=== PATIENT | male | born 1975 | race Caucasian/White ===

== ENCOUNTER 2017-03-04 14:28 | Inpatient (IN) | payer SELFPAY ==
[~2017-03-04] VITALS: Ht 170.2 cm; Wt 76.4 kg
[2017-03-04 14:34] VITALS: BP 107/57; PULSE 90; RESP 14; TEMP 98.4; O2SAT 97
[2017-03-04 16:21] VITALS: BP 102/54; PULSE 97; RESP 22; TEMP 97.8; O2SAT 98
[2017-03-04] MEDS ORDERED: SODIUM CHLOR 0.9% 1000 ML INJ 1,000 ML IV ONE (16:23)
[2017-03-04] MEDS ORDERED: oxyCODONE/ACETAMINOPHEN 5 MG/325 MG TAB PO ONE (16:30)
[2017-03-04] MEDS ORDERED: ONDANSETRON HCL 4 MG/2 ML VIAL IV PUSH ONE (16:30)
--- NOTE | 2017-03-04 16:51 | PD ---
HPI Chief Complaint: Skin Problem Time Seen by Provider: 16:16 Travel History International Travel<30 days: No Contact w/Intl Traveler<30days: No Traveled to known affect area: No History of Present Illness HPI Patient is a 42-year-old male presenting to the ER chart for evaluation of right arm pain and swelling. Patient states he injected IV heroin into his right forearm 3 days ago, 2 days ago the symptoms started. He states his pain is a 10 out of 10, he has been trying to let it heal on its own however the pain was so significant he presented today. He states he he's felt feverish and chilled but has not actually taken his temperature. He reports generalized body aches. He denies any nausea, vomiting, chest pain, shortness of breath, abdominal pain. Patient states she's been using IV Dilaudid as well, he has a five-year history of IV drug use. [facility] Past Medical History Medical History: Denies Significant Hx Diminished Hearing: No ?: Not Social History Alcohol Use: Yes Tobacco Use: Yes Substance Use: Yes (IV heroin and Dilaudid) Allergies-Medications (Allergen,Severity, Reaction): Coded Allergies: No Known Allergies (Unverified , 03/04/17) Reported Meds & Prescriptions Reported Meds & Active Scripts Active No Active Prescriptions or Reported Medications Review of Systems Except as stated in HPI: all other systems reviewed are Neg General / Constitutional: Positive: Fever, Chills HENT: No: Headaches Cardiovascular: No: Chest Pain or Discomfort Respiratory: No: Shortness of Breath Gastrointestinal: No: Nausea, Abdominal Pain Musculoskeletal: Positive: Myalgias, Edema Skin: Positive Change in Pigmentation Neurologic: No: Sensory Disturbance Physical Exam Narrative GENERAL: Well-developed, well-nourished, alert male. Appears uncomfortable, in no acute distress. SKIN: Warm and dry. Edema and erythema to right hand and forearm just proximal to right elbow, significantly tender to palpation. HEAD: Atraumatic. Normocephalic. EYES: Pupils equal and round. No scleral icterus. No injection or drainage. ENT: No nasal bleeding or discharge. Mucous membranes pink and moist. NECK: Trachea midline. No JVD. CARDIOVASCULAR: Regular rate and rhythm. RESPIRATORY: No accessory muscle use. Clear to auscultation. Breath sounds equal bilaterally. GASTROINTESTINAL: Abdomen soft, non-tender, nondistended. Hepatic and splenic margins not palpable. MUSCULOSKELETAL: Extremities without clubbing, cyanosis. 1+ edema to right forearm and hand, nonpitting. 2+ radial pulse, brisk is a 3 second capillary refill. NEUROLOGICAL: Awake and alert. No obvious cranial nerve deficits. Motor grossly within normal limits. Five out of 5 muscle strength in the arms and legs. Normal speech. PSYCHIATRIC: Appropriate mood and affect; insight and judgment normal. Data Data Last Documented VS Vital Signs Date Time Temp Pulse Resp B/P (MAP) Pulse Ox O2 Delivery O2 Flow Rate FiO2 03/04/17 16:21 97.8 97 22 102/54 (70) 98 Room Air Orders Orders Complete Blood Count With Diff (03/04/17 16:23) Comprehensive Metabolic Panel (03/04/17 16:23) Lactic Acid Sepsis Protocol (03/04/17 16:23) Blood Culture (03/04/17 16:23) Ecg Monitoring (03/04/17 16:23) Iv Access Insert/Monitor (03/04/17 16:23) Oximetry (03/04/17 16:23) Ondansetron Inj (Zofran Inj) (03/04/17 16:30) Sodium Chlor 0.9% 1000 Ml Inj (Ns 1000 M (03/04/17 16:23) Us Arm Venous Doppler (03/04/17 ) Oxycodone-Acetamin 5-325 Mg (Percocet (03/04/17 16:30) Clindamycin 900 Mg Premix (Cleocin 900 M (03/04/17 17:30) Clindamycin Inj (Cleocin Inj) (03/04/17 17:30) Ketorolac Inj (Toradol Inj) (03/04/17 18:15) Admit Order (Ed Use Only) (03/04/17 18:28) Labs Laboratory Tests Test 03/04/17 16:30 White Blood Count 19.8 TH/MM3 Red Blood Count 3.19 MIL/MM3 Hemoglobin 9.7 GM/DL Hematocrit 27.4 % Mean Corpuscular Volume 86.0 FL Mean Corpuscular Hemoglobin 30.5 PG Mean Corpuscular Hemoglobin Concent 35.4 % Red Cell Distribution Width 13.5 % Platelet Count 193 TH/MM3 Mean Platelet Volume 8.7 FL Neutrophils (%) (Auto) 92.4 % Lymphocytes (%) (Auto) 2.8 % Monocytes (%) (Auto) 4.2 % Eosinophils (%) (Auto) 0.4 % Basophils (%) (Auto) 0.2 % Neutrophils # (Auto) 18.3 TH/MM3 Lymphocytes # (Auto) 0.5 TH/MM3 Monocytes # (Auto) 0.8 TH/MM3 Eosinophils # (Auto) 0.1 TH/MM3 Basophils # (Auto) 0.0 TH/MM3 CBC Comment DIFF FINAL Differential Comment Blood Urea Nitrogen 26 MG/DL Creatinine 1.36 MG/DL Random Glucose 82 MG/DL Total Protein 6.9 GM/DL Albumin 3.0 GM/DL Calcium Level 8.0 MG/DL Alkaline Phosphatase 68 U/L Aspartate Amino Transf (AST/SGOT) 419 U/L Alanine Aminotransferase (ALT/SGPT) 234 U/L Total Bilirubin 0.5 MG/DL Sodium Level 127 MEQ/L Potassium Level 3.8 MEQ/L Chloride Level 95 MEQ/L Carbon Dioxide Level 21.4 MEQ/L Anion Gap 11 MEQ/L Estimat Glomerular Filtration Rate 58 ML/MIN Lactic Acid Level 1.9 mmol/L [facility] Medical Decision Making Medical Screen Exam Complete: Yes Emergency Medical Condition: Yes Interpretation(s) Vital Signs Date Time Temp Pulse Resp B/P (MAP) Pulse Ox O2 Delivery O2 Flow Rate FiO2 03/04/17 14:34 98.4 90 14 107/57 (74) 97 Differential Diagnosis Cellulitis versus abscess versus DVT versus sepsis versus other Narrative Course Patient is a 42-year-old IV drug user presented with 2-3 days of increasing pain , swelling, redness to his right upper extremity. He admits to injecting heroin and Dilaudid 3 days ago. Patient is mildly tachycardic, he is afebrile currently, mildly hypotensive. Labs and imaging ordered and pending. Percocet ordered for pain. Ultrasound of the right upper extremity is negative for DVT. CBC with white count of 19.8 with left shift Lactic acid 1.9 Chemistry with elevated BUN and creatinine at 26/1.36, liver enzymes are elevated with an AST of 419, ALT 234, sodium 127 Clindamycin 900 mg IV 1 dose ordered. Patient given a liter of IV fluids as well as Zofran. Discussed findings by attending physician. At this time patient will be admitted for IV antibiotic therapy. Discussed with Dr. Cervantes who accepted admission. Admit orders placed. Sepsis Criteria SIRS Criteria (2 or more): Heart rate over 90, WBC > 78507, < 4000 or > 10% bands Sepsis Criteria (SIRS+source): Infect source susp/known (cellulitis) Severe Sepsis (+one): Hypotension Diagnosis Primary Impression: Sepsis Qualified Codes: A41.9 - Sepsis, unspecified organism Additional Impressions: Cellulitis Qualified Codes: L03.113 - Cellulitis of right upper limb IV drug user Admitting Information Admitting Physician Requests: Admit Scripts No Active Prescriptions or Reported Meds Condition: Stable [facility] Mar 04, 2017 16:51
[2017-03-04 17:10] LABS: AUTOMATED NEUTROPHIL # 18.3 TH/MM3 (1.8-7.7); BASOPHIL % 0.2 % (0.0-2.0); EOSINOPHIL # 0.1 TH/MM3 (0-0.4); EOSINOPHIL % 0.4 % (0.0-4.0); HEMATOCRIT 27.4 % (39.0-51.0); HEMO FLAGS DIFF FINAL; LYMPH % 2.8 % (9.0-44.0); LYMPHOCYTE # 0.5 TH/MM3 (1.0-4.8); MEAN CORPUSCULAR HEMOGLOBIN 30.5 PG (27.0-34.0); MEAN CORPUSCULAR HGB CONC 35.4 % (32.0-36.0); MONO % 4.2 % (0.0-8.0); NEUT % 92.4 % (16.0-70.0); PLATELET COUNT 193 TH/MM3 (150-450); RED BLOOD COUNT 3.19 MIL/MM3 (4.50-5.90); RED CELL DISTRIBUTION WIDTH 13.5 % (11.6-17.2); WHITE BLOOD COUNT 19.8 TH/MM3 (4.0-11.0)
--- NOTE | 2017-03-04 17:10 | RADRPT ---
EXAM DATE/TIME: 03/04/2017 16:45 [facility] COMPARISON: No previous studies available for comparison. INDICATIONS : Right arm swelling. MEDICAL HISTORY : ETOH abuse. Substance abuse. SURGICAL HISTORY : None. ENCOUNTER: Initial ACUITY: 3 days PAIN SCORE: 7/10 LOCATION: Right arm. FINDINGS: There is spontaneous flow documented in the brachial, basilic, cephalic, axillary, and subclavian vei ns. The vessels are compressible and augmentation response is documented. No filling defects are se en. The flow is phasic with respiration. Direction of flow in the jugular vein is caudal. CONCLUSION: No venous thrombosis of the right upper extremity. Jonatan Wheeler MD on March 04, 2017 at 17:07 Board Certified Radiologist. This report was verified electronically.
[2017-03-04] MEDS ORDERED: CLINDAMYCIN 900 MG PREMIX 50 ML IV ONE (17:30)
[2017-03-04] MEDS ORDERED: CLINDAMYCIN INJ 900 MG in SODIUM CHLORIDE 0.9% INJ 100 ML IV ONE (17:30)
[2017-03-04 17:34] LABS: ALKALINE PHOSPHATASE 68 U/L (45-117); TOTAL BILIRUBIN ADULT 0.5 MG/DL (0.2-1.0)
[2017-03-04 17:35] LABS: ALT (GPT) 234 U/L (12-78); ANION GAP 11 MEQ/L (5-15); AST (GOT) 419 U/L (15-37); BICARBONATE 21.4 MEQ/L (21.0-32.0); BLOOD UREA NITROGEN 26 MG/DL (7-18); CHLORIDE 95 MEQ/L (98-107); GLOMERULAR FILTRATION RATE 58 ML/MIN (>89); SODIUM (NA) 127 MEQ/L (136-145)
[2017-03-04 17:39] LABS: POTASSIUM 3.8 MEQ/L (3.5-5.1)
[2017-03-04] MEDS ORDERED: KETOROLAC TROMETHAMINE 30 MG/ML (IVP) VIAL IV PUSH ONE (18:15)
[2017-03-04 19:14] VITALS: BP 90/53; PULSE 102; RESP 18; O2SAT 98
[2017-03-04 20:00] VITALS: BP 81/53; PULSE 99; RESP 18; TEMP 97.6; O2SAT 98
[2017-03-04] MEDS: SODIUM CHLOR 0.9% 1000 ML INJ 1,000 ML IV SCH (20:20)
[2017-03-04] MEDS ORDERED: LORazepam 1 MG TAB PO PRN (20:30)
[2017-03-04] MEDS ORDERED: Vancomycin Consult Pharmacy 1 EA OTHER SCH (20:30)
[2017-03-04] MEDS ORDERED: MAGNESIUM HYDROXIDE SUSP 30 ML CUP PO PRN (20:30)
[2017-03-04] MEDS ORDERED: SODIUM CHLORIDE 0.9% FLUSH 10 ML FLUSH IV FLUSH PRN (20:30)
[2017-03-04] MEDS ORDERED: VANCOMYCIN INJ 1,000 MG in SODIUM CHLOR 0.9% 250 ML INJ 250 ML IV SCH (20:30)
[2017-03-04] MEDS ORDERED: LORazepam 2 MG TAB PO PRN (20:30)
[2017-03-04] MEDS ORDERED: ACETAMINOPHEN 325 MG TAB PO PRN (20:30)
[2017-03-04] MEDS ORDERED: NALOXONE HCL 0.4 MG/ML AMP IV PUSH PRN (20:30)
[2017-03-04] MEDS ORDERED: SENNOSIDES 8.6 MG TAB PO PRN (20:30)
[2017-03-04] MEDS ORDERED: LORazepam 2 MG/ML VIAL IV PUSH PRN ×4 (20:30)
[2017-03-04] MEDS ORDERED: FLUMAZENIL 0.5 MG/5 ML VIAL IV PUSH PRN (20:30)
[2017-03-04] MEDS ORDERED: LACTULOSE SYRUP 20 GM/30 ML CUP PO PRN (20:30)
[2017-03-04] MEDS ORDERED: ONDANSETRON HCL 4 MG/2 ML VIAL IVP PRN (20:30)
[2017-03-04] MEDS ORDERED: BISACODYL 10 MG SUPP RECTAL PRN (20:30)
--- NOTE | 2017-03-04 20:31 | HHI.HP ---
[facility] Service [facility] Primary Care Physician No Primary Care Physician Admission Diagnosis cellulitis, IV drug use Diagnoses: Travel History International Travel<30 Days: No Contact w/Intl Traveler <30 Da: No Traveled to Known Affected Are: No History of Present Illness 42-year-old male with a past medical history significant for IV drug abuse presents to the emergency department with a three-day history of right upper extremity pain and swelling. He endorses subjective fever/chills. He also complains of nausea and diarrhea for 3 days. His lab work was significant for a white cell count of 19.8 with a significant left shift. He endorses pain that radiates to his hand and has difficulty making a fist. No areas of fluctuance noted. Review of Systems Subjective fever/chills Denies blurry vision, otorrhea, rhinorrhea Denies sore throat and cough No chest pain, palpitations, shortness of breath No abdominal pain Nausea and diarrhea Denies muscle pain/weakness Erythema right upper extremity Past Family Social History Past Medical History None Past Surgical History Unspecified vascular surgery on the left lower extremity 6 years ago Reported Medications None Allergies: Coded Allergies: No Known Allergies (Unverified , 03/04/17) Family History None. Mother and father without significant medical comorbidities. Social History Endorses drinking a 4 pack of beer daily. Denies marijuana. IV drug abuse with Dilaudid and heroin and, last injection 3 days ago Physical Exam Vital Signs Vital Signs Date Time Temp Pulse Resp B/P (MAP) Pulse Ox O2 Delivery O2 Flow Rate FiO2 03/04/17 19:14 102 18 90/53 (65) 98 Room Air 03/04/17 18:36 18 03/04/17 16:21 97.8 97 22 102/54 (70) 98 Room Air 03/04/17 14:34 98.4 90 14 107/57 (74) 97 Physical Exam GENERAL: White male lying in bed SKIN: Significant induration and erythema in the right upper extremity that extends from the elbow to the mid forearm. No fluctuance noted. HEAD: Atraumatic. Normocephalic. No temporal or scalp tenderness. EYES: Pupils equal round and reactive. Extraocular motions intact. No scleral icterus. No injection or drainage. ENT: Nose without bleeding, purulent drainage or septal hematoma. Throat without erythema, tonsillar hypertrophy or exudate. Uvula midline. Airway patent. NECK: Trachea midline. No JVD or lymphadenopathy. Supple, nontender, no meningeal signs. CARDIOVASCULAR: Regular rate and rhythm without murmurs, gallops, or rubs. RESPIRATORY: Clear to auscultation. Breath sounds equal bilaterally. No wheezes , rales, or rhonchi. GASTROINTESTINAL: Abdomen soft, non-tender, nondistended. No hepato-splenomegaly , or palpable masses. No guarding. MUSCULOSKELETAL: Extremities without clubbing, cyanosis, or edema. No joint tenderness, effusion, or edema noted. No calf tenderness. NEUROLOGICAL: Awake and alert. Cranial nerves II through XII intact. Motor and sensory grossly within normal limits. Normal speech. Laboratory Laboratory Tests Test 03/04/17 16:30 White Blood Count 19.8 Red Blood Count 3.19 Hemoglobin 9.7 Hematocrit 27.4 Mean Corpuscular Volume 86.0 Mean Corpuscular Hemoglobin 30.5 Mean Corpuscular Hemoglobin Concent 35.4 Red Cell Distribution Width 13.5 Platelet Count 193 Mean Platelet Volume 8.7 Neutrophils (%) (Auto) 92.4 Lymphocytes (%) (Auto) 2.8 Monocytes (%) (Auto) 4.2 Eosinophils (%) (Auto) 0.4 Basophils (%) (Auto) 0.2 Neutrophils # (Auto) 18.3 Lymphocytes # (Auto) 0.5 Monocytes # (Auto) 0.8 Eosinophils # (Auto) 0.1 Basophils # (Auto) 0.0 CBC Comment DIFF FINAL Differential Comment Blood Urea Nitrogen 26 Creatinine 1.36 Random Glucose 82 Total Protein 6.9 Albumin 3.0 Calcium Level 8.0 Alkaline Phosphatase 68 Aspartate Amino Transf (AST/SGOT) 419 Alanine Aminotransferase (ALT/SGPT) 234 Total Bilirubin 0.5 Sodium Level 127 Potassium Level 3.8 Chloride Level 95 Carbon Dioxide Level 21.4 Anion Gap 11 Estimat Glomerular Filtration Rate 58 Lactic Acid Level 1.9 Date/Time Source Procedure Growth Status 03/04/17 16:30 Blood Peripheral Aerobic Blood Culture Pending Received 03/04/17 16:30 Blood Peripheral Anaerobic Blood Culture Pending Received Result Diagram: 03/04/17 1630 03/04/17 1630 Caprini VTE Risk Assessment Caprini VTE Risk Assessment: No/Low Risk (score <= 1) Caprini Risk Assessment Model Point Value = 1 Point Value = 2 Point Value = 3 Point Value = 5 Age 41-60 Minor surgery BMI > 25 kg/m2 Swollen legs Varicose veins or History of unexplained or recurrent spontaneous Oral contraceptives or hormone replacement Sepsis (< 1 month) Serious lung disease, including pneumonia (< 1 month) Abnormal pulmonary function Acute myocardial infarction Congestive heart failure (< 1 month) History of inflammatory bowel disease Medical patient at bed rest Age 61-74 Arthroscopic surgery Major open surgery (> 45 min) Laparoscopic surgery (> 45 min) Malignancy Confined to bed (> 72 hours) Immobilizing plaster cast Central venous access Age >= 75 History of VTE Family history of VTE Factor V Leiden Prothrombin [id number] Lupus anticoagulant Anticardiolipin antibodies Elevated serum homocysteine Heparin-induced thrombocytopenia Other congenital or acquired thrombophilia Stroke (< 1 month) Elective arthroplasty Hip, pelvis, or leg fracture Acute spinal cord injury (< 1 month) Prophylaxis Regimen Total Risk Factor Score Risk Level Prophylaxis Regimen 0-1 Low Early ambulation 2 Moderate Order ONE of the following: *Sequential Compression Device (SCD) *Heparin 5000 units SQ BID 3-4 Higher Order ONE of the following medications: *Heparin 5000 units SQ TID *Enoxaparin/Lovenox 40 mg SQ daily (WT < 150 kg, CrCl > 30 mL/min) *Enoxaparin/Lovenox 30 mg SQ daily (WT < 150 kg, CrCl > 10-29 mL/min) *Enoxaparin/Lovenox 30 mg SQ BID (WT < 150 kg, CrCl > 30 mL/min) AND/OR *Sequential Compression Device (SCD) 5 or more Highest Order ONE of the following medications: *Heparin 5000 units SQ TID (Preferred with Epidurals) *Enoxaparin/Lovenox 40 mg SQ daily (WT < 150 kg, CrCl > 30 mL/min) *Enoxaparin/Lovenox 30 mg SQ daily (WT < 150 kg, CrCl > 10-29 mL/min) *Enoxaparin/Lovenox 30 mg SQ BID (WT < 150 kg, CrCl > 30 mL/min) AND *Sequential Compression Device (SCD) Assessment and Plan Assessment and Plan 42-year-old male with IV drug abuse presents with a three-day history of right upper extremity cellulitis 1. Right upper extremity cellulitis Vancomycin and Zosyn Blood cultures pending Monitor for signs of sepsis 2. AK I Creatinine 1.36 IV fluid hydration 3. Transaminitis Suspect secondary to alcohol abuse Monitor FEN Regular diet Electrolytes monitor and replete when necessary IV fluids: NS at 100 cc/hour SCDs Physician Certification 2 Midnight Certification Type: Admission for Inpatient Services Order for Inpatient Services The services are ordered in accordance with Medicare regulations or non- Medicare payer requirements, as applicable. In the case of services not specified as inpatient-only, they are appropriately provided as inpatient services in accordance with the 2-midnight benchmark. Estimated LOS (days): 2 2 days is the estimated time the patient will need to remain in the hospital, assuming treatment plan goals are met and no additional complications. Post-Hospital Plan: Not yet determined Cristina Hansen MD Mar 04, 2017 20:31
[2017-03-04] MEDS: DOCUSATE SODIUM 50 MG/SENNA 8.6 MG TAB PO SCH (21:00)
[2017-03-04] MEDS: SODIUM CHLORIDE 0.9% FLUSH 10 ML FLUSH IV FLUSH SCH (21:00)
[2017-03-04] MEDS: oxyCODONE/ACETAMINOPHEN 7.5 MG/325 MG TAB PO PRN (21:06)
[2017-03-04] MEDS: VANCOMYCIN INJ 1,250 MG in SODIUM CHLOR 0.9% 250 ML INJ 250 ML IV SCH (22:07)
[2017-03-04] MEDS: PIPERACIL-TAZO 3.375 GM PREMIX 50 ML IV SCH (22:07)
[2017-03-05] VITALS: BP 97/54; PULSE 65; RESP 18; TEMP 97.5; O2SAT 98
[2017-03-05] MEDS: oxyCODONE/ACETAMINOPHEN 7.5 MG/325 MG TAB PO PRN ×5 (02:40→20:30)
[2017-03-05] MEDS: PIPERACIL-TAZO 3.375 GM PREMIX 50 ML IV SCH ×4 (02:43→21:47)
[2017-03-05 04:00] VITALS: BP 88/52; PULSE 109; RESP 18; TEMP 98.5; O2SAT 95
[2017-03-05] MEDS: SODIUM CHLOR 0.9% 1000 ML INJ 1,000 ML IV SCH (06:20)
[2017-03-05 08:41] LABS: BASOPHIL % 0.1 % (0.0-2.0); EOSINOPHIL # 0.1 TH/MM3 (0-0.4); EOSINOPHIL % 0.4 % (0.0-4.0); HEMATOCRIT 28.8 % (39.0-51.0); HEMO FLAGS DIFF FINAL; LYMPH % 2.2 % (9.0-44.0); LYMPHOCYTE # 0.5 TH/MM3 (1.0-4.8); MEAN CELL VOLUME 86.3 FL (80.0-100.0); MEAN CORPUSCULAR HEMOGLOBIN 30.3 PG (27.0-34.0); MEAN CORPUSCULAR HGB CONC 35.1 % (32.0-36.0); NEUT % 93.3 % (16.0-70.0); PLATELET COUNT 167 TH/MM3 (150-450); RED BLOOD COUNT 3.33 MIL/MM3 (4.50-5.90); RED CELL DISTRIBUTION WIDTH 13.8 % (11.6-17.2); WHITE BLOOD COUNT 22.5 TH/MM3 (4.0-11.0)
[2017-03-05] MEDS: SODIUM CHLORIDE 0.9% FLUSH 10 ML FLUSH IV FLUSH SCH ×2 (09:00→21:00)
[2017-03-05] MEDS: DOCUSATE SODIUM 50 MG/SENNA 8.6 MG TAB PO SCH ×2 (09:00→21:00)
[2017-03-05 09:21] VITALS: BP 99/56; PULSE 103; RESP 20; TEMP 98.4; O2SAT 97
[2017-03-05] MEDS: VANCOMYCIN INJ 1,250 MG in SODIUM CHLOR 0.9% 250 ML INJ 250 ML IV SCH ×2 (09:31→21:47)
[2017-03-05 09:42] LABS: ALKALINE PHOSPHATASE 75 U/L (45-117); ALT (GPT) 216 U/L (12-78); ANION GAP 10 MEQ/L (5-15); AST (GOT) 289 U/L (15-37); BICARBONATE 20.1 MEQ/L (21.0-32.0); BLOOD UREA NITROGEN 14 MG/DL (7-18); CHLORIDE 104 MEQ/L (98-107); GLOMERULAR FILTRATION RATE 80 ML/MIN (>89); POTASSIUM 3.5 MEQ/L (3.5-5.1); SODIUM (NA) 134 MEQ/L (136-145); TOTAL BILIRUBIN ADULT 0.6 MG/DL (0.2-1.0)
--- NOTE | 2017-03-05 12:26 | HHI.PR ---
Subjective Remarks Follow-up for right arm cellulitis Patient state he continues to be a current IV drug user. He would not tell me drug of choice. Patient asking for pain medication. He stated pain uncontrolled percent. Patient feels that cellulitis is not improving. He has no other complaints. His nurse is at the bedside during the interview. Objective Vitals Vital Signs Date Time Temp Pulse Resp B/P (MAP) Pulse Ox O2 Delivery O2 Flow Rate FiO2 03/05/17 09:21 98.4 103 20 99/56 (70) 97 03/05/17 04:00 98.5 109 18 88/52 (64) 95 03/05/17 00:00 97.5 65 18 97/54 (68) 98 03/04/17 22:28 03/04/17 20:31 18 03/04/17 20:00 97.6 99 18 81/53 (62) 98 03/04/17 19:14 102 18 90/53 (65) 98 Room Air 03/04/17 18:36 18 03/04/17 16:21 97.8 97 22 102/54 (70) 98 Room Air 03/04/17 14:34 98.4 90 14 107/57 (74) 97 I/O 03/04/17 03/04/17 03/04/17 03/05/17 03/05/17 03/05/17 07:00 15:00 23:00 07:00 15:00 23:00 Intake Total 1106 ml 50 ml Balance 1106 ml 50 ml Intake IV Total 1106 ml 50 ml # Voids 2 Result Diagram: 03/05/1715 03/05/1715 Objective Remarks GENERAL: White male lying in bed SKIN: Significant induration and erythema in the right upper extremity that extends from the elbow to the mid forearm. + mild? fluctuance below the right antecubital area. EYES: Pupils equal round and reactive. Extraocular motions intact. No scleral icterus. No injection or drainage. ENT: Nose without bleeding, purulent drainage or septal hematoma. Throat without erythema, tonsillar hypertrophy or exudate. Uvula midline. Airway patent. NECK: Trachea midline. No JVD or lymphadenopathy. Supple, nontender, no meningeal signs. CARDIOVASCULAR: Regular rate and rhythm without murmurs, gallops, or rubs. RESPIRATORY: Clear to auscultation. Breath sounds equal bilaterally. No wheezes , rales, or rhonchi. Medications and IVs Current Medications Ondansetron HCl (Zofran Inj) 4 mg ONCE ONCE IV PUSH Last administered on 16:46; Start 03/04/17 at 16:30; Stop 03/04/17 at 16:31; Status DC Sodium Chloride 1,000 ml @ 1,000 mls/hr Q1H ONCE IV Last administered on 16:45; Start 03/04/17 at 16:23; Stop 03/04/17 at 17:22; Status DC Oxycodone/ Acetaminophen (Percocet 5-325 Mg) 1 tab ONCE ONCE PO Last administered on 03/04/17 16:45; Start 03/04/17 at 16:30; Stop 03/04/17 at 16:31 ; Status DC Clindamycin Phosphate/Dextrose 50 ml @ 100 mls/hr ONCE ONCE IV ; Start at 17:30; Stop 03/04/17 at 17:34; Status DC Clindamycin Phosphate 900 mg/ Sodium Chloride 106 ml @ 212 mls/hr ONCE ONCE IV Last administered on 03/04/17 18:36; Start 03/04/17 at 17:30; Stop at 17:59; Status DC Ketorolac Tromethamine (Toradol Inj) 30 mg ONCE ONCE IV PUSH Last administered on 03/04/17 18:36; Start 03/04/17 at 18:15; Stop 03/04/17 at 18:16 ; Status DC Sodium Chloride 1,000 ml @ 100 mls/hr Q10H IV Last administered on 03/05/17 06:20; Start 03/04/17 at 20:20 Sodium Chloride (NS Flush) 2 ml UNSCH PRN IV FLUSH FLUSH AFTER USING IV ACCESS ; Start 03/04/17 at 20:30 Sodium Chloride (NS Flush) 2 ml BID IV FLUSH Last administered on 03/05/17 09: 00; Start 03/04/17 at 21:00 Acetaminophen (Tylenol) 650 mg Q4H PRN PO TEMP > 100.4; Start 03/04/17 at 20:30 Ondansetron HCl (Zofran Inj) 4 mg Q6H PRN IVP NAUSEA OR VOMITING; Start at 20:30 Naloxone HCl (Narcan Inj) 0.4 mg UNSCH PRN IV PUSH SEE LABEL COMMENTS; Start 03/04/17 at 20:30 Senna/Docusate Sodium (Jolene-Colace) 1 tab BID PO ; Start 03/04/17 at 21:00 Magnesium Hydroxide (Milk Of Magnesia Liq) 30 ml Q12H PRN PO Mild constipation ; Start 03/04/17 at 20:30 Sennosides (Senokot) 17.2 mg Q12H PRN PO Moderate constipation; Start 03/04/17 at 20:30 Bisacodyl (Dulcolax Supp) 10 mg DAILY PRN RECTAL SEVERE CONSITIPATION; Start 03/04/17 at 20:30 Lactulose (Lactulose Liq) 30 ml DAILY PRN PO SEVERE CONSITIPATION; Start at 20:30 Flumazenil (Romazicon Inj) 0.2 mg Q1M PRN IV PUSH SEE LABEL COMMENTS; Start at 20:30 Lorazepam (Ativan) 1 mg Q4H PRN PO CIWA 8 - 10; Start 03/04/17 at 20:30 Lorazepam (Ativan Inj) 1 mg Q4H PRN IV PUSH CIWA 8 - 10; Start 03/04/17 at 20: 30 Lorazepam (Ativan) 2 mg Q2H PRN PO CIWA 11-14; Start 03/04/17 at 20:30 Lorazepam (Ativan Inj) 2 mg Q2H PRN IV PUSH CIWA 11-14; Start 03/04/17 at 20:30 Lorazepam (Ativan Inj) 2 mg Q1H PRN IV PUSH CIWA 15-20; Start 03/04/17 at 20:30 Lorazepam (Ativan Inj) 2 mg Q15M PRN IV PUSH CIWA > 20; Start 03/04/17 at 20:30 Pharmacy Profile Note 0 ml @ 0 mls/hr UNSCH OTHER ; Start 03/04/17 at 20:30 Vancomycin HCl 1000 mg/Sodium Chloride 250 ml @ 250 mls/hr Q12H IV ; Start 03/04/17 at 20:30; Status UNV Piperacillin Sod/ Tazobactam Sod 50 ml @ 100 mls/hr Q6H IV Last administered on 03/05/17 08:32; Start 03/04/17 at 21:00 Oxycodone/ Acetaminophen (Percocet 7.5-325 Mg) 1 tab Q4H PRN PO pain 6-10 Last administered on 03/05/17 11:32; Start 03/04/17 at 20:30 Vancomycin HCl 1250 mg/Sodium Chloride 262.5 ml @ 250 mls/hr Q12H IV Last administered on 03/05/17 09:31; Start 03/04/17 at 21:00 Miscellaneous Information SPECIFIC LAB TO BE ... ONCE ONCE .XX ; Start 03/06 at 08:45; Stop 03/06/17 at 08:46 A/P Assessment and Plan 42-year-old male with IV drug abuse presents with a three-day history of right upper extremity cellulitis Right upper extremity cellulitis -Vancomycin and Zosyn. Pending blood cultures. -Ultrasound negative. -Cellulitis pretty extensive concerning for questionable abscess. Will get CT scan of the arm. -Consult infectious disease. -Patient has Percocet for pain. We will add Toradol. BYRON, resolved. -Due to dehydration. Continue with IV fluids. Transaminitis -Suspect secondary to alcohol abuse -Trending down. We'll get urine drug screen and ethanol level. Will also do elevated LFTs workup with hepatitis panel and liver ultrasound. Current IV drug user -Education given. DVT prophylaxis SCDs Jennifer Salamanca MD Mar 05, 2017 12:26
[2017-03-05 12:35] VITALS: BP 119/61; PULSE 105; RESP 20; TEMP 99.2; O2SAT 97
[2017-03-05] MEDS: KETOROLAC TROMETHAMINE 30 MG/ML (IVP) VIAL IV PUSH SCH ×2 (13:24→18:55)
[2017-03-05 16:00] VITALS: BP 138/83; PULSE 85; RESP 20; TEMP 98.4; O2SAT 99
[2017-03-05] MEDS ORDERED: IOHEXOL 350 MG/ML 10 ML VIAL (for RAD DIAG) IVCONTRAST ONE (16:32)
--- NOTE | 2017-03-05 16:47 | RADRPT ---
EXAM DATE/TIME: 03/05/2017 15:53 [facility] COMPARISON: No previous studies available for comparison. INDICATIONS : Extensive pain right arm, abscess. IV CONTRAST: 72 cc Omnipaque 350 (iohexol) IV ; Cumulative dose for multiple exams. RADIATION DOSE: 10.47 CTDIvol (mGy) ; Combined studies MEDICAL HISTORY : None SURGICAL HISTORY : None. ENCOUNTER: Initial ACUITY: 2 days PAIN SCALE: 10/10 LOCATION: Right forearm TECHNIQUE: Volumetric scanning of the forearm was performed. Using automated exposure control and adjustment of the mA and/or kV according to patient size, radiation dose was kept as low as reasonably achievable to obtain optimal diagnostic quality images. DICOM format image data is available electronically fo r review and comparison. FINDINGS: Very irregular, elongated fluid collection with mild rim enhancement is seen of the extensor compartm ent. This primarily involves the extensor digitorum muscle over essentially its entire length, greate r than 13 cm proximal to distal. The largest portion of the fluid collection is in the proximal porti on of the muscle belly, roughly 17 x 25 mm in greatest transaxial dimension. There is diffuse but henrik ecially dorsal subcutaneous edema but no other organize fluid seen. Intact right radius and ulna. CONCLUSION: Extensor compartment elongated fluid collection of concern for intramuscular abscess, mostly extensor digitorum. Diffuse but mostly dorsal subcutaneous swelling and edema but no other organized fluid. Jonatan Wheeler MD on March 05, 2017 at 16:40 Board Certified Radiologist. This report was verified electronically.
--- NOTE | 2017-03-05 16:50 | RADRPT ---
EXAM DATE/TIME: 03/05/2017 15:56 [facility] COMPARISON: CT FOREARM RIGHT W CONTRAST, March 05, 2017, 15:53. INDICATIONS : Extereme pain right arm, abscess, cellulitis. IV CONTRAST: 72 cc Omnipaque 350 (iohexol) IV ; Cumulative dose for multiple exams. RADIATION DOSE: 10.47 CTDIvol (mGy) ; Combined studies MEDICAL HISTORY : None SURGICAL HISTORY : None. ENCOUNTER: Initial ACUITY: 2 days PAIN SCALE: 10/10 LOCATION: Right forearm and hand TECHNIQUE: Volumetric scanning of the hand was performed. Using automated exposure control and adjustment of th e mA and/or kV according to patient size, radiation dose was kept as low as reasonably achievable to obtain optimal diagnostic quality images. DICOM format image data is available electronically for re view and comparison. FINDINGS: BONES: No evidence of fracture. Alignment is within normal limits. JOINTS: No evidence of joint narrowing or effusion. SOFT TISSUES: Muscles, tendons, and neurovascular structures are grossly unremarkable. No evidence of mass, organiz ed fluid collection, or foreign body. CONCLUSION: No fluid collections or acute bony abnormality of the hand. Jonatan Wheeler MD on March 05, 2017 at 16:47 Board Certified Radiologist. This report was verified electronically.
--- NOTE | 2017-03-05 19:01 | RADRPT ---
EXAM DATE/TIME: 03/05/2017 18:29 [place] COMPARISON: No previous studies available for comparison. INDICATIONS : Increased lab values. MEDICAL HISTORY : Cellulitis. IV drug user. SURGICAL HISTORY : Unspecified vascular surgery on the left lower extremity 6 years ago. ENCOUNTER: Initial ACUITY: 1 day PAIN SCORE: 4/10 LOCATION: Bilateral upper quadrant MEASUREMENTS: LIVER: 20.0 cm length COMMON DUCT: 8 mm RIGHT KIDNEY: 10.9 x 5.3 x 4.4 cm SPLEEN: 12.0 cm length FINDINGS: LIVER: Normal echotexture without focal lesion or ductal dilatation. COMMON DUCT: No intraluminal mass or stone visualized. GALLBLADDER: There is no evidence for gallstone. Negative sonographic Pierre's sign. Gallbladder wall thickness up per limits normal 3 mm. Trace pericholecystic fluid. PANCREAS: The visualized portions are within normal limits. RIGHT KIDNEY: No hydronephrosis, stone or mass. SPLEEN: No focal lesion. CONCLUSION: 1. Hepatomegaly. 2. Gallbladder wall thickening and trace pericholecystic fluid suspected. No stones are seen. Negativ e Pierre's sign. Ty Pete MD on March 05, 2017 at 18:58 Board Certified Radiologist. This report was verified electronically.
[2017-03-05 20:00] VITALS: BP 94/48; PULSE 95; RESP 18; TEMP 97.5; O2SAT 97
[2017-03-06] VITALS (7 sets, daily range): BP systolic 97–122; BP diastolic 54–61; PULSE 84–96; RESP 17–18; TEMP 97.3–100.5; O2SAT 95–98
[2017-03-06] MEDS: KETOROLAC TROMETHAMINE 30 MG/ML (IVP) VIAL IV PUSH SCH ×3 (00:13→12:04)
[2017-03-06] MEDS: oxyCODONE/ACETAMINOPHEN 7.5 MG/325 MG TAB PO PRN ×6 (00:18→22:56)
[2017-03-06] MEDS: PIPERACIL-TAZO 3.375 GM PREMIX 50 ML IV SCH ×4 (05:40→21:48)
[2017-03-06] MEDS: SODIUM CHLOR 0.9% 1000 ML INJ 1,000 ML IV SCH ×4 (07:31→21:47)
[2017-03-06] MEDS ORDERED: PHARMACY ORDERED LAB ONE (08:45)
[2017-03-06] MEDS: SODIUM CHLORIDE 0.9% FLUSH 10 ML FLUSH IV FLUSH SCH ×2 (08:57→21:00)
[2017-03-06] MEDS: DOCUSATE SODIUM 50 MG/SENNA 8.6 MG TAB PO SCH ×2 (09:00→21:00)
[2017-03-06 10:17] LABS: HEMATOCRIT 26.6 % (39.0-51.0); MEAN CELL VOLUME 86.2 FL (80.0-100.0); MEAN CORPUSCULAR HEMOGLOBIN 30.1 PG (27.0-34.0); MEAN CORPUSCULAR HGB CONC 34.9 % (32.0-36.0); PLATELET COUNT 196 TH/MM3 (150-450); RED BLOOD COUNT 3.08 MIL/MM3 (4.50-5.90); RED CELL DISTRIBUTION WIDTH 13.8 % (11.6-17.2); REVIEW FLAG FINAL; WHITE BLOOD COUNT 14.9 TH/MM3 (4.0-11.0)
--- NOTE | 2017-03-06 10:41 | HHI.PR ---
Subjective Remarks Follow-up for right arm cellulitis/abscess Patient stated that he continues have pain but better control. As seen for acid reflux medication. He is also asking something for anxiety. Otherwise he has no complaints. He remains afebrile. Discussed with patient's nurse. Objective Vitals Vital Signs Date Time Temp Pulse Resp B/P (MAP) Pulse Ox O2 Delivery O2 Flow Rate FiO2 03/06/17 08:18 98.1 84 18 103/60 (74) 97 03/06/17 04:00 98.9 88 18 97/56 (70) 96 03/06/17 00:00 97.3 87 18 102/54 (70) 97 03/05/17 20:00 97.5 95 18 94/48 (63) 97 03/05/17 16:00 98.4 85 20 138/83 (101) 99 03/05/17 12:35 99.2 105 20 119/61 (80) 97 I/O 03/05/17 03/05/17 03/05/17 03/06/17 03/06/17 03/06/17 07:00 15:00 23:00 07:00 15:00 23:00 Intake Total 312.5 ml Balance 312.5 ml Intake IV Total 312.5 ml # Voids 2 4 Result Diagram: 03/06/17 0833 03/05/17 0815 Imaging Last Impressions Upper Extremity CT 03/05/17 0000 Signed Impressions: Service Date/Time: Sunday, March 05, 2017 15:56 - CONCLUSION: No fluid collections or acute bony abnormality of the hand. Jonatan Wheeler MD Liver Ultrasound 03/05/17 0000 Signed Impressions: Service Date/Time: Sunday, March 05, 2017 18:29 - CONCLUSION: 1. Hepatomegaly. 2. Gallbladder wall thickening and trace pericholecystic fluid suspected. No stones are seen. Negative Pierre's sign. Ty Pete MD Upper Extremity Ultrasound 03/04/17 0000 Signed Impressions: Service Date/Time: Saturday, March 04, 2017 16:45 - CONCLUSION: No venous thrombosis of the right upper extremity. Jonatan Wheeler MD Objective Remarks GENERAL: White male lying in bed SKIN: Significant induration and erythema in the right upper extremity that extends from the elbow to the mid forearm. + mild? fluctuance below the right antecubital area with some improvement. EYES: Pupils equal round and reactive. Extraocular motions intact. No scleral icterus. No injection or drainage. ENT: Nose without bleeding, purulent drainage or septal hematoma. Throat without erythema, tonsillar hypertrophy or exudate. Uvula midline. Airway patent. NECK: Trachea midline. No JVD or lymphadenopathy. Supple, nontender, no meningeal signs. CARDIOVASCULAR: Regular rate and rhythm without murmurs, gallops, or rubs. RESPIRATORY: Clear to auscultation. Breath sounds equal bilaterally. No wheezes , rales, or rhonchi. Medications and IVs Current Medications Ondansetron HCl (Zofran Inj) 4 mg ONCE ONCE IV PUSH Last administered on 16:46; Start 03/04/17 at 16:30; Stop 03/04/17 at 16:31; Status DC Sodium Chloride 1,000 ml @ 1,000 mls/hr Q1H ONCE IV Last administered on 16:45; Start 03/04/17 at 16:23; Stop 03/04/17 at 17:22; Status DC Oxycodone/ Acetaminophen (Percocet 5-325 Mg) 1 tab ONCE ONCE PO Last administered on 03/04/17 16:45; Start 03/04/17 at 16:30; Stop 03/04/17 at 16:31 ; Status DC Clindamycin Phosphate/Dextrose 50 ml @ 100 mls/hr ONCE ONCE IV ; Start at 17:30; Stop 03/04/17 at 17:34; Status DC Clindamycin Phosphate 900 mg/ Sodium Chloride 106 ml @ 212 mls/hr ONCE ONCE IV Last administered on 03/04/17 18:36; Start 03/04/17 at 17:30; Stop at 17:59; Status DC Ketorolac Tromethamine (Toradol Inj) 30 mg ONCE ONCE IV PUSH Last administered on 03/04/17 18:36; Start 03/04/17 at 18:15; Stop 03/04/17 at 18:16 ; Status DC Sodium Chloride 1,000 ml @ 125 mls/hr Q8H IV Last administered on 03/05/17 06 :20; Start 03/04/17 at 20:20 Sodium Chloride (NS Flush) 2 ml UNSCH PRN IV FLUSH FLUSH AFTER USING IV ACCESS ; Start 03/04/17 at 20:30 Sodium Chloride (NS Flush) 2 ml BID IV FLUSH Last administered on 03/06/17 08: 57; Start 03/04/17 at 21:00 Acetaminophen (Tylenol) 650 mg Q4H PRN PO TEMP > 100.4; Start 03/04/17 at 20:30 Ondansetron HCl (Zofran Inj) 4 mg Q6H PRN IVP NAUSEA OR VOMITING Last administered on 03/06/17 00:18; Start 03/04/17 at 20:30 Naloxone HCl (Narcan Inj) 0.4 mg UNSCH PRN IV PUSH SEE LABEL COMMENTS; Start 03/04/17 at 20:30 Senna/Docusate Sodium (Jolene-Colace) 1 tab BID PO ; Start 03/04/17 at 21:00 Magnesium Hydroxide (Milk Of Magnesia Liq) 30 ml Q12H PRN PO Mild constipation ; Start 03/04/17 at 20:30 Sennosides (Senokot) 17.2 mg Q12H PRN PO Moderate constipation; Start 03/04/17 at 20:30 Bisacodyl (Dulcolax Supp) 10 mg DAILY PRN RECTAL SEVERE CONSITIPATION; Start 03/04/17 at 20:30 Lactulose (Lactulose Liq) 30 ml DAILY PRN PO SEVERE CONSITIPATION; Start at 20:30 Flumazenil (Romazicon Inj) 0.2 mg Q1M PRN IV PUSH SEE LABEL COMMENTS; Start at 20:30 Lorazepam (Ativan) 1 mg Q4H PRN PO CIWA 8 - 10; Start 03/04/17 at 20:30 Lorazepam (Ativan Inj) 1 mg Q4H PRN IV PUSH CIWA 8 - 10; Start 03/04/17 at 20: 30 Lorazepam (Ativan) 2 mg Q2H PRN PO CIWA 11-14; Start 03/04/17 at 20:30 Lorazepam (Ativan Inj) 2 mg Q2H PRN IV PUSH CIWA 11-14; Start 03/04/17 at 20:30 Lorazepam (Ativan Inj) 2 mg Q1H PRN IV PUSH CIWA 15-20; Start 03/04/17 at 20:30 Lorazepam (Ativan Inj) 2 mg Q15M PRN IV PUSH CIWA > 20; Start 03/04/17 at 20:30 Pharmacy Profile Note 0 ml @ 0 mls/hr UNSCH OTHER ; Start 03/04/17 at 20:30 Vancomycin HCl 1000 mg/Sodium Chloride 250 ml @ 250 mls/hr Q12H IV ; Start 03/04/17 at 20:30; Status UNV Piperacillin Sod/ Tazobactam Sod 50 ml @ 100 mls/hr Q6H IV Last administered on 03/06/17 08:57; Start 03/04/17 at 21:00 Oxycodone/ Acetaminophen (Percocet 7.5-325 Mg) 1 tab Q4H PRN PO pain 6-10 Last administered on 03/06/17 10:10; Start 03/04/17 at 20:30 Vancomycin HCl 1250 mg/Sodium Chloride 262.5 ml @ 250 mls/hr Q12H IV Last administered on 03/05/17 21:47; Start 03/04/17 at 21:00 Miscellaneous Information SPECIFIC LAB TO BE ... ONCE ONCE .XX ; Start 03/06 at 08:45; Stop 03/06/17 at 08:46; Status DC Ketorolac Tromethamine (Toradol Inj) 30 mg Q6HR IV PUSH Last administered on 05:40; Start 03/05/17 at 12:15; Stop 03/06/17 at 12:14 Iohexol (Omnipaque 350 Inj) 72 ml STK-MED ONCE IVCONTRAST Last administered on 03/05/17 16:32; Start 03/05/17 at 16:32; Stop 03/05/17 at 16:33; Status DC A/P Assessment and Plan 42-year-old male with IV drug abuse presents with a three-day history of right upper extremity cellulitis Right upper extremity cellulitis -Vancomycin and Zosyn. Pending blood cultures. -Ultrasound negative. CT scan of the arm showed extensive tensor compartment in elongated fluid collection concerning for intramuscular abscess. -Infectious disease consulted. -Initially consulted general surgeon but stated that this is more for orthopedic surgeon. Consult placed for orthopedic surgeon. -Clinically is improving. Will continue to monitor. -Patient on Percocet and Toradol for pain. BYRON, resolved. -Due to dehydration. Continue with IV fluids. -Pending labs from today. Transaminitis -Suspect secondary to alcohol abuse -Drug screen positive for barbiturates and cocaine. Pending hepatitis panel. Liver ultrasound shows thickening gallbladder wall and small amount of pericholecystic fluid. -Continue to monitor and trend LFTs. Current IV drug user -Drug screen positive for barbiturates and cocaine. -Education given. Acid reflux -Will give Pepcid. Anxiety -As likely secondary to drug dependence. Will give Vistaril when necessary. DVT prophylaxis SCDs Jennifer Salamanca MD Mar 06, 2017 10:41
[2017-03-06 10:53] LABS: BICARBONATE 23.9 MEQ/L (21.0-32.0); POTASSIUM 3.1 MEQ/L (3.5-5.1)
[2017-03-06] MEDS: VANCOMYCIN INJ 1,250 MG in SODIUM CHLOR 0.9% 250 ML INJ 250 ML IV SCH ×2 (10:56→21:48)
[2017-03-06] MEDS: FAMOTIDINE 20 MG TAB PO SCH ×2 (10:56→21:48)
--- NOTE | 2017-03-06 16:17 | PD.ID.CON ---
History of Present Illness Service ID Consult Requested By Dr Salamanca Reason for Consult RUE cellulitis, infection Primary Care Physician No Primary Care Physician Diagnoses: History of Present Illness 42 yo male with IVDU presented with RUE swelling redness and pain x several days after self injecting IV drugs He was started on abx 2 days ago (zosyn, vancomycin) however he reports worsening pain HIs redness also spreading for forearm and above the elbow He also c/o diarrhea He had 4 liquid BMs today He reports nausea Review of Systems Gastrointestinal: COMPLAINS OF: Diarrhea, Nausea Musculoskeletal: COMPLAINS OF: Joint pain, Muscle aches Except as stated in HPI: all other systems reviewed are Neg Past Family Social History Allergies: Coded Allergies: No Known Allergies (Unverified , 03/04/17) Past Medical History none Past Surgical History Unspecified vascular surgery on the left lower extremity 6 years ago Active Ordered Medications Medications where reviewed in EMR Antibiotics Include: zosyn vanco Family History None. Mother and father without significant medical comorbidities. Social History Endorses drinking a 4 pack of beer daily. Denies marijuana. IV drug abuse with Dilaudid and heroin and, last injection 3 days ago Physical Exam Vital Signs Vital Signs Date Time Temp Pulse Resp B/P (MAP) Pulse Ox O2 Delivery O2 Flow Rate FiO2 03/06/17 12:06 99.5 92 18 105/55 (72) 97 03/06/17 08:18 98.1 84 18 103/60 (74) 97 03/06/17 04:00 98.9 88 18 97/56 (70) 96 03/06/17 00:00 97.3 87 18 102/54 (70) 97 03/05/17 20:00 97.5 95 18 94/48 (63) 97 Physical Exam CONSTITUTIONAL/GENERAL: This is an adequately nourished patient, in no apparent distress. TUBES/LINES/DRAINS: SKIN: No jaundice, rashes, or lesions. Skin temperature appropriate. Not diaphoretic. HEAD: Atraumatic. Normocephalic. EYES: Pupils equal and round and reactive. Extraocular motions intact. No scleral icterus. No injection or drainage. Fundi not examined. ENT: Hearing grossly normal. Nose without bleeding or purulent drainage. Throat without visible erythema, exudates, masses, or lesions. NECK: Trachea midline. Supple, nontender. No palpable thyroid enlargement or nodularity. CARDIOVASCULAR: Regular rate and rhythm without murmurs, gallops, or rubs. No JVD. Peripheral pulses symmetric. RESPIRATORY/CHEST: Symmetric, unlabored respirations. Clear to auscultation. Breath sounds equal bilaterally. No wheezes, rales, or rhonchi. GASTROINTESTINAL: Abdomen soft, non-tender, nondistended. No hepato-splenomegaly , or palpable masses. No guarding. Bowel sounds present. GENITOURINARY: Without palpable bladder distension. MUSCULOSKELETAL: Extremities without clubbing, cyanosis, or edema. No joint tenderness or effusion noted. No calf tenderness. No mottling or clubbing. RUE with erytma, pain, tight edema A/C area with tender cords fluctuant area on R wrist dorsum erythema is above elbow LYMPHATICS: No palpable cervical axillae or supraclavicular adenopathy. NEUROLOGICAL: Awake and alert. Motor and sensory grossly within normal limits. Follows commands. Clear speech . Moves all extremities. PSYCHIATRIC: No obvious anxiety/depression. no apparent hallucinations or other psychotic thought process. Laboratory Laboratory Tests Test 03/05/17 17:00 03/06/17 08:33 Urine Opiates Screen NEG Urine Barbiturates Screen POS Urine Amphetamines Screen NEG Urine Benzodiazepines Screen NEG Urine Cocaine Screen POS Urine Cannabinoids Screen NEG White Blood Count 14.9 Red Blood Count 3.08 Hemoglobin 9.3 Hematocrit 26.6 Mean Corpuscular Volume 86.2 Mean Corpuscular Hemoglobin 30.1 Mean Corpuscular Hemoglobin Concent 34.9 Red Cell Distribution Width 13.8 Platelet Count 196 Mean Platelet Volume 8.7 Blood Urea Nitrogen 10 Creatinine 0.94 Random Glucose 89 Calcium Level 8.3 Sodium Level 137 Potassium Level 3.1 Chloride Level 103 Carbon Dioxide Level 23.9 Anion Gap 10 Estimat Glomerular Filtration Rate 88 Vancomycin Level Trough 11.6 Date/Time Source Procedure Growth Status 03/04/17 16:30 Blood Peripheral Aerobic Blood Culture - Preliminary NO GROWTH IN 2 DAYS Resulted 03/04/17 16:30 Blood Peripheral Anaerobic Blood Culture - Preliminary NO GROWTH IN 2 DAYS Resulted Result Diagram: 03/06/17 0833 03/06/17 0833 Imaging Last Impressions Upper Extremity CT 03/05/17 0000 Signed Impressions: Service Date/Time: Sunday, March 05, 2017 15:56 - CONCLUSION: No fluid collections or acute bony abnormality of the hand. Jonatan Wheeler MD Liver Ultrasound 03/05/17 0000 Signed Impressions: Service Date/Time: Sunday, March 05, 2017 18:29 - CONCLUSION: 1. Hepatomegaly. 2. Gallbladder wall thickening and trace pericholecystic fluid suspected. No stones are seen. Negative Pierre's sign. Ty Pete MD Upper Extremity Ultrasound 03/04/17 0000 Signed Impressions: Service Date/Time: Saturday, March 04, 2017 16:45 - CONCLUSION: No venous thrombosis of the right upper extremity. Jonatan Wheeler MD Assessment and Plan Assessment and Plan IVDU RUE cellulits, ? abscess ABx -associated diarrhea Rec's conty current abx consult surgery c.diff chk Discussed Condition With Carmen Wilson MD Mar 06, 2017 16:17
[2017-03-06] MEDS ORDERED: POTASSIUM CHLORIDE 25 MEQ EFFERVESCENT TAB PO ONE (18:30)
[2017-03-07 01:18] VITALS: BP 146/97; PULSE 84; RESP 18; TEMP 98; O2SAT 99
[2017-03-07] MEDS: oxyCODONE/ACETAMINOPHEN 7.5 MG/325 MG TAB PO PRN ×5 (02:55→19:44)
[2017-03-07] MEDS: PIPERACIL-TAZO 3.375 GM PREMIX 50 ML IV SCH ×4 (02:55→19:45)
[2017-03-07 02:58] VITALS: BP 138/71; PULSE 84; RESP 18; TEMP 98.6; O2SAT 96
[2017-03-07 07:21] LABS: HEMATOCRIT 27.7 % (39.0-51.0); MEAN CELL VOLUME 86.5 FL (80.0-100.0); MEAN CORPUSCULAR HEMOGLOBIN 30.6 PG (27.0-34.0); MEAN CORPUSCULAR HGB CONC 35.4 % (32.0-36.0); PLATELET COUNT 231 TH/MM3 (150-450); RED CELL DISTRIBUTION WIDTH 13.7 % (11.6-17.2); REVIEW FLAG FINAL; WHITE BLOOD COUNT 10.9 TH/MM3 (4.0-11.0)
[2017-03-07 07:58] LABS: BICARBONATE 23.8 MEQ/L (21.0-32.0); INDIRECT BILIRUBIN 0.1 MG/DL (0.0-0.8); POTASSIUM 3.3 MEQ/L (3.5-5.1); TOTAL BILIRUBIN ADULT 0.2 MG/DL (0.2-1.0)
[2017-03-07] MEDS: FAMOTIDINE 20 MG TAB PO SCH ×2 (08:10→19:43)
[2017-03-07] MEDS: SODIUM CHLOR 0.9% 1000 ML INJ 1,000 ML IV SCH ×4 (08:16→23:31)
[2017-03-07 08:25] VITALS: BP 123/64; PULSE 88; RESP 19; TEMP 99.8; O2SAT 92
[2017-03-07] MEDS: SODIUM CHLORIDE 0.9% FLUSH 10 ML FLUSH IV FLUSH SCH ×2 (09:00→19:45)
[2017-03-07] MEDS: DOCUSATE SODIUM 50 MG/SENNA 8.6 MG TAB PO SCH ×2 (09:00→19:44)
[2017-03-07] MEDS ORDERED: POTASSIUM CHLORIDE 25 MEQ EFFERVESCENT TAB PO ONE (09:15)
[2017-03-07] MEDS: VANCOMYCIN INJ 1,250 MG in SODIUM CHLOR 0.9% 250 ML INJ 250 ML IV SCH ×2 (09:24→19:45)
--- NOTE | 2017-03-07 09:55 | HHI.PR ---
Subjective Remarks Follow-up for right arm cellulitis/questionable abscess Patient feels like he has not gotten better. He remains afebrile. Continues to have pain but manageable with the current pain regimen. Otherwise he has no other complaints. Objective Vitals Vital Signs Date Time Temp Pulse Resp B/P (MAP) Pulse Ox O2 Delivery O2 Flow Rate FiO2 03/07/17 08:25 99.8 88 19 123/64 (83) 92 03/07/17 02:58 98.6 84 18 138/71 (93) 96 03/06/17 22:55 99.3 91 18 120/61 (80) 95 03/06/17 20:30 100.5 95 17 122/58 (79) 98 03/06/17 16:30 99.4 96 18 112/61 (78) 96 03/06/17 12:06 99.5 92 18 105/55 (72) 97 I/O 03/06/17 03/06/17 03/06/17 03/07/17 03/07/17 03/07/17 06:59 14:59 22:59 06:59 14:59 22:59 Intake Total 792.5 ml 774 ml 590 ml Balance 792.5 ml 774 ml 590 ml Intake Oral 480 ml 240 ml IV Total 312.5 ml 774 ml 350 ml # Voids 4 2 1 # Bowel Movements 1 Result Diagram: 03/07/1763703/07/17637 Objective Remarks GENERAL: White male lying in bed SKIN: Significant induration and erythema in the right upper extremity that extends from the elbow to the mid forearm. + mild? fluctuance below the right antecubital area stable exam from yesterday. EYES: Pupils equal round and reactive. Extraocular motions intact. No scleral icterus. No injection or drainage. ENT: Nose without bleeding, purulent drainage or septal hematoma. Throat without erythema, tonsillar hypertrophy or exudate. Uvula midline. Airway patent. NECK: Trachea midline. No JVD or lymphadenopathy. Supple, nontender, no meningeal signs. CARDIOVASCULAR: Regular rate and rhythm without murmurs, gallops, or rubs. RESPIRATORY: Clear to auscultation. Breath sounds equal bilaterally. No wheezes , rales, or rhonchi. Medications and IVs Current Medications Ondansetron HCl (Zofran Inj) 4 mg ONCE ONCE IV PUSH Last administered on 16:46; Start 03/04/17 at 16:30; Stop 03/04/17 at 16:31; Status DC Sodium Chloride 1,000 ml @ 1,000 mls/hr Q1H ONCE IV Last administered on 16:45; Start 03/04/17 at 16:23; Stop 03/04/17 at 17:22; Status DC Oxycodone/ Acetaminophen (Percocet 5-325 Mg) 1 tab ONCE ONCE PO Last administered on 03/04/17 16:45; Start 03/04/17 at 16:30; Stop 03/04/17 at 16:31 ; Status DC Clindamycin Phosphate/Dextrose 50 ml @ 100 mls/hr ONCE ONCE IV ; Start at 17:30; Stop 03/04/17 at 17:34; Status DC Clindamycin Phosphate 900 mg/ Sodium Chloride 106 ml @ 212 mls/hr ONCE ONCE IV Last administered on 03/04/17 18:36; Start 03/04/17 at 17:30; Stop at 17:59; Status DC Ketorolac Tromethamine (Toradol Inj) 30 mg ONCE ONCE IV PUSH Last administered on 03/04/17 18:36; Start 03/04/17 at 18:15; Stop 03/04/17 at 18:16 ; Status DC Sodium Chloride 1,000 ml @ 125 mls/hr Q8H IV Last administered on 03/07/17 08 :16; Start 03/04/17 at 20:20 Sodium Chloride (NS Flush) 2 ml UNSCH PRN IV FLUSH FLUSH AFTER USING IV ACCESS ; Start 03/04/17 at 20:30 Sodium Chloride (NS Flush) 2 ml BID IV FLUSH Last administered on 03/06/17 08: 57; Start 03/04/17 at 21:00 Acetaminophen (Tylenol) 650 mg Q4H PRN PO TEMP > 100.4 Last administered on 21:48; Start 03/04/17 at 20:30 Ondansetron HCl (Zofran Inj) 4 mg Q6H PRN IVP NAUSEA OR VOMITING Last administered on 03/06/17 00:18; Start 03/04/17 at 20:30 Naloxone HCl (Narcan Inj) 0.4 mg UNSCH PRN IV PUSH SEE LABEL COMMENTS; Start 03/04/17 at 20:30 Senna/Docusate Sodium (Jolene-Colace) 1 tab BID PO ; Start 03/04/17 at 21:00 Magnesium Hydroxide (Milk Of Magnesia Liq) 30 ml Q12H PRN PO Mild constipation ; Start 03/04/17 at 20:30 Sennosides (Senokot) 17.2 mg Q12H PRN PO Moderate constipation; Start 03/04/17 at 20:30 Bisacodyl (Dulcolax Supp) 10 mg DAILY PRN RECTAL SEVERE CONSITIPATION; Start 03/04/17 at 20:30 Lactulose (Lactulose Liq) 30 ml DAILY PRN PO SEVERE CONSITIPATION; Start at 20:30 Flumazenil (Romazicon Inj) 0.2 mg Q1M PRN IV PUSH SEE LABEL COMMENTS; Start at 20:30 Lorazepam (Ativan) 1 mg Q4H PRN PO CIWA 8 - 10; Start 03/04/17 at 20:30 Lorazepam (Ativan Inj) 1 mg Q4H PRN IV PUSH CIWA 8 - 10; Start 03/04/17 at 20: 30 Lorazepam (Ativan) 2 mg Q2H PRN PO CIWA 11-14; Start 03/04/17 at 20:30 Lorazepam (Ativan Inj) 2 mg Q2H PRN IV PUSH CIWA 11-14; Start 03/04/17 at 20:30 Lorazepam (Ativan Inj) 2 mg Q1H PRN IV PUSH CIWA 15-20; Start 03/04/17 at 20:30 Lorazepam (Ativan Inj) 2 mg Q15M PRN IV PUSH CIWA > 20; Start 03/04/17 at 20:30 Pharmacy Profile Note 0 ml @ 0 mls/hr UNSCH OTHER ; Start 03/04/17 at 20:30 Vancomycin HCl 1000 mg/Sodium Chloride 250 ml @ 250 mls/hr Q12H IV ; Start 03/04/17 at 20:30; Status UNV Piperacillin Sod/ Tazobactam Sod 50 ml @ 100 mls/hr Q6H IV Last administered on 03/07/17t 08:10; Start 03/04/17 at 21:00 Oxycodone/ Acetaminophen (Percocet 7.5-325 Mg) 1 tab Q4H PRN PO pain 6-10 Last administered on 03/07/17 06:50; Start 03/04/17 at 20:30 Vancomycin HCl 1250 mg/Sodium Chloride 262.5 ml @ 250 mls/hr Q12H IV Last administered on 03/07/17 09:24; Start 03/04/17 at 21:00 Miscellaneous Information SPECIFIC LAB TO BE ... ONCE ONCE .XX Last administered on 03/06/17 08:33; Start 03/06/17 at 08:45; Stop 03/06/17 at 08:46 ; Status DC Ketorolac Tromethamine (Toradol Inj) 30 mg Q6HR IV PUSH Last administered on 12:04; Start 03/05/17 at 12:15; Stop 03/06/17 at 12:14; Status DC Iohexol (Omnipaque 350 Inj) 72 ml STK-MED ONCE IVCONTRAST Last administered on 03/05/17 16:32; Start 03/05/17 at 16:32; Stop 03/05/17 at 16:33; Status DC Famotidine (Pepcid) 20 mg BID PO Last administered on 03/07/17 08:10; Start 03/06/17 at 10:45 Hydroxyzine Pamoate (Vistaril) 50 mg Q6H PRN PO anxiety Last administered on 08:16; Start 03/06/17 at 10:45 Potassium Bicarb/ Potassium Chloride (K-Lyte Cl Eff) 25 meq ONCE ONCE PO Last administered on 03/06/17 18:42; Start 03/06/17 at 18:30; Stop 03/06/17 at 18:37; Status DC Potassium Bicarb/ Potassium Chloride (K-Lyte Cl Eff) 25 meq ONCE ONCE PO Last administered on 03/07/17 09:24; Start 03/07/17 at 09:15; Stop 03/07/17 at 09:16; Status DC A/P Assessment and Plan 42-year-old male with IV drug abuse presents with a three-day history of right upper extremity cellulitis Right upper extremity cellulitis -Vancomycin and Zosyn. Pending blood cultures. -Ultrasound negative. CT scan of the arm showed extensive tensor compartment in elongated fluid collection concerning for intramuscular abscess. -Infectious disease consulted and ff. appreciate assistance. -Initially consulted general surgeon but stated that this is more for orthopedic surgeon. consult for Ortho was placed yesterday but an ordered was placed to cancelled order that i was unaware of. Will consult hand surgeon to see if s/he can assist. -In terms of leukocytosis there is improvement but clinical exam is same. -Patient on Percocet and Toradol for pain. BYRON, resolved. -Due to dehydration. Continue with IV fluids. Transaminitis, improving. -Drug screen positive for barbiturates and cocaine. Positive for hepatitis C. Liver ultrasound shows thickening gallbladder wall and small amount of pericholecystic fluid. -Continue to monitor and trend LFTs. Hepatitis C -will work up but at the moment not a candidate for treatment due to current IVDU and polysubstance abuse. -Will get genotype and quantitative RNA. Current IV drug user -Drug screen positive for barbiturates and cocaine. -Education given. Acid reflux -On Pepcid Anxiety -As likely secondary to drug dependence. Vistaril when necessary. DVT prophylaxis SCDs Jennifer Salamanca MD Mar 07, 2017 09:54
[2017-03-07 12:04] VITALS: BP 125/67; PULSE 85; RESP 18; TEMP 100.2; O2SAT 96
--- NOTE | 2017-03-07 14:44 | PD.CAR.PN ---
CVT Progress Note Subjective/Hospital Course: Referral received Full consult to follow Patient to go to the OR tomorrow for I&D of the abscess Objective: Vital Signs Date Time Temp Pulse Resp B/P (MAP) Pulse Ox O2 Delivery O2 Flow Rate FiO2 03/07/17 12:04 100.2 85 18 125/67 (86) 96 03/07/17 08:25 99.8 88 19 123/64 (83) 92 03/07/17 02:58 98.6 84 18 138/71 (93) 96 03/06/17 22:55 99.3 91 18 120/61 (80) 95 03/06/17 20:30 100.5 95 17 122/58 (79) 98 03/06/17 16:30 99.4 96 18 112/61 (78) 96 Labs: Laboratory Tests Test 03/07/17 06:38 White Blood Count 10.9 TH/MM3 (4.0-11.0) Red Blood Count 3.20 MIL/MM3 (4.50-5.90) Hemoglobin 9.8 GM/DL (13.0-17.0) Hematocrit 27.7 % (39.0-51.0) Mean Corpuscular Volume 86.5 FL (80.0-100.0) Mean Corpuscular Hemoglobin 30.6 PG (27.0-34.0) Mean Corpuscular Hemoglobin Concent 35.4 % (32.0-36.0) Red Cell Distribution Width 13.7 % (11.6-17.2) Platelet Count 231 TH/MM3 (150-450) Mean Platelet Volume 7.8 FL (7.0-11.0) Blood Urea Nitrogen 8 MG/DL (7-18) Creatinine 0.89 MG/DL (0.60-1.30) Random Glucose 91 MG/DL (74-106) Total Protein 5.8 GM/DL (6.4-8.2) Albumin 2.1 GM/DL (3.4-5.0) Calcium Level 7.9 MG/DL (8.5-10.1) Alkaline Phosphatase 77 U/L (45-117) Aspartate Amino Transf (AST/SGOT) 87 U/L (15-37) Alanine Aminotransferase (ALT/SGPT) 126 U/L (12-78) Total Bilirubin 0.2 MG/DL (0.2-1.0) Direct Bilirubin 0.1 MG/DL (0.0-0.2) Sodium Level 143 MEQ/L (136-145) Potassium Level 3.3 MEQ/L (3.5-5.1) Chloride Level 111 MEQ/L (98-107) Carbon Dioxide Level 23.8 MEQ/L (21.0-32.0) Anion Gap 8 MEQ/L (5-15) Estimat Glomerular Filtration Rate 94 ML/MIN (>89) Indirect Bilirubin 0.1 MG/DL (0.0-0.8) (Otoniel Oseguera MD) Result Diagram: 03/07/17 0638 03/07/17 0638 Otoniel Oseguera MD Mar 07, 2017 14:44 Jennifer Salamanca MD Mar 09, 2017 09:20
[2017-03-07] MEDS ORDERED: LACTATED RINGER'S 1000 ML IV PRN (16:00)
[2017-03-07] MEDS ORDERED: SODIUM CHLORID 0.9% 500 ML IV PRN (16:00)
[2017-03-07 16:06] VITALS: BP 140/79; PULSE 84; RESP 18; TEMP 98.3; O2SAT 95
[2017-03-07] MEDS ORDERED: METOPROLOL TARTRATE 25 MG TAB PO PRN (16:15)
[2017-03-07] MEDS ORDERED: INSULIN HUMAN REGULAR 1,000 UNITS/10 ML VIAL SQ PRN (16:15)
[2017-03-07] MEDS ORDERED: CHLORHEXIDINE GLUCONATE 2 % 1 PACK (2 CLOTHS) TOPICAL PRN (16:15)
[2017-03-07] MEDS ORDERED: POVIDONE IODINE 5% (ANTISEPSIS KIT) 4 APPLICATIONS EACH NARE PRN (16:15)
--- NOTE | 2017-03-07 16:29 | HHI.IDPN ---
Subjective Subjective Remarks co worsening RUE pain + low grade fever + nausae, no vomiting and RUQ discomfort Antibiotics zosyn vancomycin Allergies: Coded Allergies: No Known Allergies (Unverified , 03/04/17) Objective . Vital Signs Date Time Temp Pulse Resp B/P (MAP) Pulse Ox O2 Delivery O2 Flow Rate FiO2 03/07/17 16:06 98.3 84 18 140/79 (99) 95 03/07/17 12:04 100.2 85 18 125/67 (86) 96 03/07/17 08:25 99.8 88 19 123/64 (83) 92 03/07/17 02:58 98.6 84 18 138/71 (93) 96 03/06/17 22:55 99.3 91 18 120/61 (80) 95 03/06/17 20:30 100.5 95 17 122/58 (79) 98 03/06/17 16:30 99.4 96 18 112/61 (78) 96 03/07/17 03/07/17 03/08/17 15:00 23:00 07:00 Intake Total 1544.5 ml Balance 1544.5 ml IV Total 1544.5 ml . Laboratory Tests Test 03/06/17 08:33 03/07/17 06:38 White Blood Count 14.9 TH/MM3 10.9 TH/MM3 Red Blood Count 3.08 MIL/MM3 3.20 MIL/MM3 Hemoglobin 9.3 GM/DL 9.8 GM/DL Hematocrit 26.6 % 27.7 % Mean Corpuscular Volume 86.2 FL 86.5 FL Mean Corpuscular Hemoglobin 30.1 PG 30.6 PG Mean Corpuscular Hemoglobin Concent 34.9 % 35.4 % Red Cell Distribution Width 13.8 % 13.7 % Platelet Count 196 TH/MM3 231 TH/MM3 Mean Platelet Volume 8.7 FL 7.8 FL Laboratory Tests Test 03/06/17 08:33 03/07/17 06:38 Blood Urea Nitrogen 10 MG/DL 8 MG/DL Creatinine 0.94 MG/DL 0.89 MG/DL Random Glucose 89 MG/DL 91 MG/DL Calcium Level 8.3 MG/DL 7.9 MG/DL Sodium Level 137 MEQ/L 143 MEQ/L Potassium Level 3.1 MEQ/L 3.3 MEQ/L Chloride Level 103 MEQ/L 111 MEQ/L Carbon Dioxide Level 23.9 MEQ/L 23.8 MEQ/L Anion Gap 10 MEQ/L 8 MEQ/L Estimat Glomerular Filtration Rate 88 ML/MIN 94 ML/MIN Total Protein 5.8 GM/DL Albumin 2.1 GM/DL Alkaline Phosphatase 77 U/L Aspartate Amino Transf (AST/SGOT) 87 U/L Alanine Aminotransferase (ALT/SGPT) 126 U/L Total Bilirubin 0.2 MG/DL Direct Bilirubin 0.1 MG/DL Indirect Bilirubin 0.1 MG/DL Microbiology Date/Time Source Procedure Growth Status 03/04/17 16:30 Blood Peripheral Aerobic Blood Culture - Preliminary NO GROWTH IN 3 DAYS Resulted 03/04/17 16:30 Blood Peripheral Anaerobic Blood Culture - Preliminary NO GROWTH IN 3 DAYS Resulted Imaging Last Impressions Upper Extremity CT 03/05/17 0000 Signed Impressions: Service Date/Time: Sunday, March 05, 2017 15:56 - CONCLUSION: No fluid collections or acute bony abnormality of the hand. Jonatan Wheeler MD Liver Ultrasound 03/05/17 0000 Signed Impressions: Service Date/Time: Sunday, March 05, 2017 18:29 - CONCLUSION: 1. Hepatomegaly. 2. Gallbladder wall thickening and trace pericholecystic fluid suspected. No stones are seen. Negative Pierre's sign. Ty Pete MD Upper Extremity Ultrasound 03/04/17 0000 Signed Impressions: Service Date/Time: Saturday, March 04, 2017 16:45 - CONCLUSION: No venous thrombosis of the right upper extremity. Jonatan Wheeler MD Physical Exam CONSTITUTIONAL/GENERAL: This is an adequately nourished patient, in no apparent distress. TUBES/LINES/DRAINS: SKIN: No jaundice, rashes, or lesions. EYES: . No scleral icterus. No injection or drainage. CARDIOVASCULAR: Regular rate and rhythm without murmurs, gallops, or rubs. No JVD. Peripheral pulses symmetric. RESPIRATORY/CHEST: Symmetric, unlabored respirations. Clear to auscultation. GASTROINTESTINAL: Abdomen soft, RUQ tenderness, mild , no guarding/rebound , nondistended. MUSCULOSKELETAL: Extremities without clubbing, cyanosis, or edema. No joint tenderness or effusion noted. No calf tenderness. No mottling or clubbing. RUE with erythema, pain, edema A/C area with tender cords fluctuant area on R wrist dorsum more prominent erythema is less prominent LYMPHATICS: No palpable cervical axillae or supraclavicular adenopathy. NEUROLOGICAL: Awake and alert. non focal PSYCHIATRIC: No obvious anxiety/depression. no apparent hallucinations or other psychotic thought process. Assessment & Plan Remarks IVDU RUE cellulits, pronbale abscess originating in distal forearm ABx -associated diarrhea, c.diff negative ? cholecytitis Gallbladder wall thickening and trace pericholecystic fluid suspected. No stones are seen Rec's cont current abx Agree with 'marcie Oseguera rec's for surgical treament GI consult re suspected cholecysittis Discussed Condition With Oumar Fox Alexandra A. MD Mar 07, 2017 16:29
[2017-03-07 20:00] VITALS: BP 146/72; PULSE 84; RESP 18; TEMP 98; O2SAT 97
[2017-03-08] MEDS: oxyCODONE/ACETAMINOPHEN 7.5 MG/325 MG TAB PO PRN ×6 (00:08→20:25)
[2017-03-08 01:19] VITALS: BP 146/70; PULSE 84; RESP 18; TEMP 98.4; O2SAT 95
[2017-03-08] MEDS: PIPERACIL-TAZO 3.375 GM PREMIX 50 ML IV SCH ×4 (02:59→20:25)
[2017-03-08 07:20] VITALS: BP 141/72; PULSE 75; RESP 18; TEMP 98.9; O2SAT 93
[2017-03-08] MEDS: SODIUM CHLOR 0.9% 1000 ML INJ 1,000 ML IV SCH ×4 (07:31→23:31)
[2017-03-08] MEDS: FAMOTIDINE 20 MG TAB PO SCH ×2 (08:09→20:25)
[2017-03-08] MEDS: SODIUM CHLORIDE 0.9% FLUSH 10 ML FLUSH IV FLUSH SCH ×2 (08:12→20:25)
[2017-03-08] MEDS: DOCUSATE SODIUM 50 MG/SENNA 8.6 MG TAB PO SCH ×2 (08:12→20:28)
[2017-03-08 08:25] VITALS: BP 134/71; PULSE 78; RESP 19; TEMP 98.4; O2SAT 95
[2017-03-08 08:34] LABS: HEMATOCRIT 24.2 % (39.0-51.0); MEAN CELL VOLUME 86.5 FL (80.0-100.0); MEAN CORPUSCULAR HEMOGLOBIN 30.5 PG (27.0-34.0); MEAN CORPUSCULAR HGB CONC 35.3 % (32.0-36.0); PLATELET COUNT 245 TH/MM3 (150-450); RED CELL DISTRIBUTION WIDTH 13.9 % (11.6-17.2); REVIEW FLAG FINAL; WHITE BLOOD COUNT 10.9 TH/MM3 (4.0-11.0)
[2017-03-08] MEDS: VANCOMYCIN INJ 1,250 MG in SODIUM CHLOR 0.9% 250 ML INJ 250 ML IV SCH ×2 (09:05→20:24)
[2017-03-08 11:04] LABS: BICARBONATE 21.4 MEQ/L (21.0-32.0); POTASSIUM 3.2 MEQ/L (3.5-5.1)
--- NOTE | 2017-03-08 11:40 | HHI.PR ---
Subjective Remarks Follow-up for right arm infection and elevated LFTs Patient continued to complain of pain in of his right arm. These asked multiple time is 30 surgery today. His nurse is at the bedside during the interview. He denies any abdominal pain or any nausea or vomiting. He has no other complaints. Objective Vitals Vital Signs Date Time Temp Pulse Resp B/P (MAP) Pulse Ox O2 Delivery O2 Flow Rate FiO2 03/08/17 08:25 98.4 78 19 134/71 (92) 95 03/08/17 07:20 98.9 75 18 141/72 (95) 93 03/08/17 01:19 98.4 84 18 146/70 (95) 95 03/07/17 20:00 98.0 84 18 146/72 (96) 97 03/07/17 16:06 98.3 84 18 140/79 (99) 95 03/07/17 12:04 100.2 85 18 125/67 (86) 96 I/O 03/07/17 03/07/17 03/07/17 03/08/17 03/08/17 03/08/17 06:59 14:59 22:59 06:59 14:59 22:59 Intake Total 590 ml 1544.5 ml 1658.5 ml 50 ml Balance 590 ml 1544.5 ml 1658.5 ml 50 ml Intake Oral 240 ml IV Total 350 ml 1544.5 ml 1658.5 ml 50 ml # Voids 1 1 Result Diagram: 03/08/17 0815 03/08/17 0815 Objective Remarks GENERAL: White male lying in bed SKIN: Significant induration and erythema in the right upper extremity that extends from the elbow to the mid forearm. + mild? fluctuance below the right antecubital area. Some improvement with erythema from yesterday. CARDIOVASCULAR: Regular rate and rhythm without murmurs, gallops, or rubs. RESPIRATORY: Clear to auscultation. Breath sounds equal bilaterally. No wheezes , rales, or rhonchi. Abd: soft. NDNT. Negative for any peritoneal signs. Normal active bowel sounds. Medications and IVs Current Medications Ondansetron HCl (Zofran Inj) 4 mg ONCE ONCE IV PUSH Last administered on t 16:46; Start 03/04/17 at 16:30; Stop 03/04/17 at 16:31; Status DC Sodium Chloride 1,000 ml @ 1,000 mls/hr Q1H ONCE IV Last administered on 16:45; Start 03/04/17 at 16:23; Stop 03/04/17 at 17:22; Status DC Oxycodone/ Acetaminophen (Percocet 5-325 Mg) 1 tab ONCE ONCE PO Last administered on 03/04/17 16:45; Start 03/04/17 at 16:30; Stop 03/04/17 at 16:31 ; Status DC Clindamycin Phosphate/Dextrose 50 ml @ 100 mls/hr ONCE ONCE IV ; Start at 17:30; Stop 03/04/17 at 17:34; Status DC Clindamycin Phosphate 900 mg/ Sodium Chloride 106 ml @ 212 mls/hr ONCE ONCE IV Last administered on 03/04/17 18:36; Start 03/04/17 at 17:30; Stop at 17:59; Status DC Ketorolac Tromethamine (Toradol Inj) 30 mg ONCE ONCE IV PUSH Last administered on 03/04/17 18:36; Start 03/04/17 at 18:15; Stop 03/04/17 at 18:16 ; Status DC Sodium Chloride 1,000 ml @ 125 mls/hr Q8H IV Last administered on 03/07/17 18 :05; Start 03/04/17 at 20:20 Sodium Chloride (NS Flush) 2 ml UNSCH PRN IV FLUSH FLUSH AFTER USING IV ACCESS ; Start 03/04/17 at 20:30 Sodium Chloride (NS Flush) 2 ml BID IV FLUSH Last administered on 03/06/17 08: 57; Start 03/04/17 at 21:00 Acetaminophen (Tylenol) 650 mg Q4H PRN PO TEMP > 100.4 Last administered on 21:48; Start 03/04/17 at 20:30 Ondansetron HCl (Zofran Inj) 4 mg Q6H PRN IVP NAUSEA OR VOMITING Last administered on 03/06/17 00:18; Start 03/04/17 at 20:30 Naloxone HCl (Narcan Inj) 0.4 mg UNSCH PRN IV PUSH SEE LABEL COMMENTS; Start 03/04/17 at 20:30 Senna/Docusate Sodium (Jolene-Colace) 1 tab BID PO ; Start 03/04/17 at 21:00 Magnesium Hydroxide (Milk Of Magnesia Liq) 30 ml Q12H PRN PO Mild constipation ; Start 03/04/17 at 20:30 Sennosides (Senokot) 17.2 mg Q12H PRN PO Moderate constipation; Start 03/04/17 at 20:30 Bisacodyl (Dulcolax Supp) 10 mg DAILY PRN RECTAL SEVERE CONSITIPATION; Start 03/04/17 at 20:30 Lactulose (Lactulose Liq) 30 ml DAILY PRN PO SEVERE CONSITIPATION; Start at 20:30 Flumazenil (Romazicon Inj) 0.2 mg Q1M PRN IV PUSH SEE LABEL COMMENTS; Start at 20:30 Lorazepam (Ativan) 1 mg Q4H PRN PO CIWA 8 - 10; Start 03/04/17 at 20:30 Lorazepam (Ativan Inj) 1 mg Q4H PRN IV PUSH CIWA 8 - 10; Start 03/04/17 at 20: 30 Lorazepam (Ativan) 2 mg Q2H PRN PO CIWA 11-14; Start 03/04/17 at 20:30 Lorazepam (Ativan Inj) 2 mg Q2H PRN IV PUSH CIWA 11-14; Start 03/04/17 at 20:30 Lorazepam (Ativan Inj) 2 mg Q1H PRN IV PUSH CIWA 15-20; Start 03/04/17 at 20:30 Lorazepam (Ativan Inj) 2 mg Q15M PRN IV PUSH CIWA > 20; Start 03/04/17 at 20:30 Pharmacy Profile Note 0 ml @ 0 mls/hr UNSCH OTHER ; Start 03/04/17 at 20:30 Vancomycin HCl 1000 mg/Sodium Chloride 250 ml @ 250 mls/hr Q12H IV ; Start 03/04/17 at 20:30; Status UNV Piperacillin Sod/ Tazobactam Sod 50 ml @ 100 mls/hr Q6H IV Last administered on 03/08/17t 08:14; Start 03/04/17 at 21:00 Oxycodone/ Acetaminophen (Percocet 7.5-325 Mg) 1 tab Q4H PRN PO pain 6-10 Last administered on 03/08/17 08:10; Start 03/04/17 at 20:30 Vancomycin HCl 1250 mg/Sodium Chloride 262.5 ml @ 250 mls/hr Q12H IV Last administered on 03/08/17 09:05; Start 03/04/17 at 21:00 Miscellaneous Information SPECIFIC LAB TO BE ... ONCE ONCE .XX Last administered on 03/06/17 08:33; Start 03/06/17 at 08:45; Stop 03/06/17 at 08:46 ; Status DC Ketorolac Tromethamine (Toradol Inj) 30 mg Q6HR IV PUSH Last administered on 12:04; Start 03/05/17 at 12:15; Stop 03/06/17 at 12:14; Status DC Iohexol (Omnipaque 350 Inj) 72 ml STK-MED ONCE IVCONTRAST Last administered on 03/05/17 16:32; Start 03/05/17 at 16:32; Stop 03/05/17 at 16:33; Status DC Famotidine (Pepcid) 20 mg BID PO Last administered on 03/08/17 08:09; Start 03/06/17 at 10:45 Hydroxyzine Pamoate (Vistaril) 50 mg Q6H PRN PO anxiety Last administered on 09:09; Start 03/06/17 at 10:45 Potassium Bicarb/ Potassium Chloride (K-Lyte Cl Eff) 25 meq ONCE ONCE PO Last administered on 03/06/17 18:42; Start 03/06/17 at 18:30; Stop 03/06/17 at 18:37; Status DC Potassium Bicarb/ Potassium Chloride (K-Lyte Cl Eff) 25 meq ONCE ONCE PO Last administered on 03/07/17 09:24; Start 03/07/17 at 09:15; Stop 03/07/17 at 09:16; Status DC Lactated Ringer's 1,000 ml @ 30 mls/hr Q24H PRN IV SEE LABEL COMMENTS; Start 03/07/17 at 16:00; Stop 03/10/17 at 15:59 Sodium Chloride 500 ml @ 30 mls/hr [id number] PRN IV SEE LABEL COMMENTS; Start at 16:00; Stop 03/10/17 at 15:59 Metoprolol Tartrate (Lopressor) 25 mg SECURITY NURSE PRN PO SEE LABEL COMMENTS; Start 03/07/17 at 16:15; Stop 03/10/17 at 16:14 Povidone Iodine (Betadine 5% Antisepsis Kit) 1 applic SECURITY NURSE PRN EACH NARE SEE LABEL COMMENTS; Start 03/07/17 at 16:15; Stop 03/10/17 at 16:14 Chlorhexidine Gluconate (Chlorhexidine 2% Cloth) 3 pack SECURITY NURSE PRN TOPICAL SEE LABEL COMMENTS; Start 03/07/17 at 16:15; Stop 03/10/17 at 16:14 Insulin Human Regular (NovoLIN R INJ) See Protocol Table ... SECURITY NURSE PRN SQ SEE PROTOCOL TABLE; Start 03/07/17 at 16:15; Stop 03/10/17 at 16:14 A/P Assessment and Plan 42-year-old male with IV drug abuse presents with a three-day history of right upper extremity cellulitis Right upper extremity cellulitis -Vancomycin and Zosyn. Pending blood cultures. -Ultrasound negative. CT scan of the arm showed extensive tensor compartment in elongated fluid collection concerning for intramuscular abscess. -Infectious disease consulted and ff. appreciate assistance. -Patient scheduled for surgery today. -In terms of leukocytosis there is improvement but clinical exam shows minimal improvement. -Patient on Percocet and Toradol for pain. BYRON, resolved. -Due to dehydration. Continue with IV fluids. Transaminitis, improving. -Drug screen positive for barbiturates and cocaine. Positive for hepatitis C. Liver ultrasound shows thickening gallbladder wall and small amount of pericholecystic fluid. -Continue to monitor and trend LFTs. -Consult GI. Hepatitis C -Pending genotype and quantitative RNA. Current IV drug user -Drug screen positive for barbiturates and cocaine. -Education given. Acid reflux -On Pepcid Anxiety -As likely secondary to drug dependence. Vistaril when necessary. DVT prophylaxis SCDs Discharge Planning Patient scheduled for the OR today. Jennifer Salamanca MD Mar 08, 2017 11:40
[2017-03-08] MEDS ORDERED: MORPHINE SULFATE 4 MG/ML INJ IV ONE (12:00)
[2017-03-08] MEDS ORDERED: KETOROLAC TROMETHAMINE 30 MG/ML (IVP) VIAL IV PUSH ONE (12:00)
[2017-03-08] MEDS ORDERED: LIDOCAINE HCL 1% PF 5 ML AMPULE OTHER ONE (12:00)
[2017-03-08] MEDS ORDERED: MIDAZOLAM HCL 2 MG/2 ML VIAL IV ONE (12:00)
[2017-03-08] MEDS ORDERED: DEXAMETHASONE SOD PHOS 4 MG/ML VIAL IV ONE (12:00)
[2017-03-08] MEDS ORDERED: PROPOFOL 200 MG/20 ML AMP IV ONE (12:00)
[2017-03-08] MEDS ORDERED: ONDANSETRON HCL 4 MG/2 ML VIAL IV PUSH ONE (12:00)
[2017-03-08 12:06] VITALS: BP 157/85; PULSE 78; RESP 19; TEMP 98.3; O2SAT 98
[2017-03-08] MEDS ORDERED: DO NOT ADM ANY ANTICOAGULANT DRUGS PRN (14:59)
[2017-03-08] MEDS ORDERED: *HYDROmorphone PF 1 MG VIAL PERIprocedural Use ONLY ONE (15:32)
[2017-03-08 16:42] VITALS: BP 177/87; PULSE 78; RESP 19; TEMP 97.7; O2SAT 93
[2017-03-08 20:38] VITALS: BP 153/75; PULSE 101; RESP 18; TEMP 97.9; O2SAT 96
[2017-03-09] VITALS (7 sets, daily range): BP systolic 120–161; BP diastolic 61–99; PULSE 76–87; RESP 16–20; TEMP 97.7–98.7; O2SAT 92–97
[2017-03-09] MEDS: oxyCODONE/ACETAMINOPHEN 7.5 MG/325 MG TAB PO PRN ×6 (01:14→21:01)
[2017-03-09] MEDS: PIPERACIL-TAZO 3.375 GM PREMIX 50 ML IV SCH ×4 (03:48→20:59)
[2017-03-09] MEDS: SODIUM CHLOR 0.9% 1000 ML INJ 1,000 ML IV SCH (07:31)
[2017-03-09] MEDS: DOCUSATE SODIUM 50 MG/SENNA 8.6 MG TAB PO SCH ×2 (09:00→21:00)
[2017-03-09] MEDS: FAMOTIDINE 20 MG TAB PO SCH ×2 (09:08→21:00)
[2017-03-09] MEDS: SODIUM CHLORIDE 0.9% FLUSH 10 ML FLUSH IV FLUSH SCH ×2 (09:08→21:00)
[2017-03-09] MEDS: VANCOMYCIN INJ 1,250 MG in SODIUM CHLOR 0.9% 250 ML INJ 250 ML IV SCH ×2 (09:13→20:59)
--- NOTE | 2017-03-09 09:27 | HHI.PR ---
Subjective Remarks Follow-up for I&D for right arm abscess and cellulitis and elevated liver enzymes Patient stated that he is doing a lot better today. He stated for sharp pain but he doesn't feel that pressure and discomfort that he had prior. He stated that he is very grateful for this procedure. Patient asking if he can have NSAID to help with pain. He denies any abdominal pain, nausea or vomiting. At the moment he is eating his breakfast. Objective Vitals Vital Signs Date Time Temp Pulse Resp B/P (MAP) Pulse Ox O2 Delivery O2 Flow Rate FiO2 03/09/17 08:17 97.7 82 20 161/99 (119) 97 03/09/17 06:03 98.4 84 18 134/73 (93) 93 03/09/17 00:44 98.3 87 16 120/67 (84) 94 03/08/17 20:38 97.9 101 18 153/75 (101) 96 03/08/17 16:42 97.7 78 19 177/87 (117) 93 03/08/17 16:00 81 16 152/76 (101) 95 Nasal Cannula 2 03/08/17 15:45 83 16 158/87 (110) 93 Nasal Cannula 2 03/08/17 15:30 73 16 155/83 (107) 95 Nasal Cannula 2 03/08/17 15:15 76 16 159/87 (111) 95 Nasal Cannula 2 03/08/17 15:00 98.4 94 16 143/74 (97) 91 Nasal Cannula 2 03/08/17 12:06 98.3 78 19 157/85 (109) 98 I/O 03/08/17 03/08/17 03/08/17 03/09/17 03/09/17 03/09/17 07:00 15:00 23:00 07:00 15:00 23:00 Intake Total 1501.5 ml 637.5 ml 50 ml Output Total 100 ml Balance 1401.5 ml 637.5 ml 50 ml IV Total 1001.5 ml 637.5 ml 50 ml Other 500 ml Output Estimated Blood Loss 100 ml # Voids 3 Result Diagram: 03/08/1781403/08/1715 Objective Remarks GENERAL: White male lying in bed SKIN: right arm wrapped in gauze. Yellowish discharge noted. Pulses intact. Sensation is also intact. CARDIOVASCULAR: Regular rate and rhythm without murmurs, gallops, or rubs. RESPIRATORY: Clear to auscultation. Breath sounds equal bilaterally. No wheezes , rales, or rhonchi. Abd: soft. NDNT. Negative for any peritoneal signs. Normal active bowel sounds. Medications and IVs Current Medications Ondansetron HCl (Zofran Inj) 4 mg ONCE ONCE IV PUSH Last administered on 16:46; Start 03/04/17 at 16:30; Stop 03/04/17 at 16:31; Status DC Sodium Chloride 1,000 ml @ 1,000 mls/hr Q1H ONCE IV Last administered on 16:45; Start 03/04/17 at 16:23; Stop 03/04/17 at 17:22; Status DC Oxycodone/ Acetaminophen (Percocet 5-325 Mg) 1 tab ONCE ONCE PO Last administered on 03/04/17 16:45; Start 03/04/17 at 16:30; Stop 03/04/17 at 16:31 ; Status DC Clindamycin Phosphate/Dextrose 50 ml @ 100 mls/hr ONCE ONCE IV ; Start at 17:30; Stop 03/04/17 at 17:34; Status DC Clindamycin Phosphate 900 mg/ Sodium Chloride 106 ml @ 212 mls/hr ONCE ONCE IV Last administered on 03/04/17 18:36; Start 03/04/17 at 17:30; Stop at 17:59; Status DC Ketorolac Tromethamine (Toradol Inj) 30 mg ONCE ONCE IV PUSH Last administered on 03/04/17 18:36; Start 03/04/17 at 18:15; Stop 03/04/17 at 18:16 ; Status DC Sodium Chloride 1,000 ml @ 125 mls/hr Q8H IV Last administered on 03/08/17 16 :40; Start 03/04/17 at 20:20 Sodium Chloride (NS Flush) 2 ml UNSCH PRN IV FLUSH FLUSH AFTER USING IV ACCESS ; Start 03/04/17 at 20:30 Sodium Chloride (NS Flush) 2 ml BID IV FLUSH Last administered on 03/09/17 09: 08; Start 03/04/17 at 21:00 Acetaminophen (Tylenol) 650 mg Q4H PRN PO TEMP > 100.4 Last administered on t 21:48; Start 03/04/17 at 20:30 Ondansetron HCl (Zofran Inj) 4 mg Q6H PRN IVP NAUSEA OR VOMITING Last administered on 03/06/17 00:18; Start 03/04/17 at 20:30 Naloxone HCl (Narcan Inj) 0.4 mg UNSCH PRN IV PUSH SEE LABEL COMMENTS; Start 03/04/17 at 20:30 Senna/Docusate Sodium (Jolene-Colace) 1 tab BID PO ; Start 03/04/17 at 21:00 Magnesium Hydroxide (Milk Of Magnesia Liq) 30 ml Q12H PRN PO Mild constipation ; Start 03/04/17 at 20:30 Sennosides (Senokot) 17.2 mg Q12H PRN PO Moderate constipation; Start 03/04/17 at 20:30 Bisacodyl (Dulcolax Supp) 10 mg DAILY PRN RECTAL SEVERE CONSITIPATION; Start 03/04/17 at 20:30 Lactulose (Lactulose Liq) 30 ml DAILY PRN PO SEVERE CONSITIPATION; Start at 20:30 Flumazenil (Romazicon Inj) 0.2 mg Q1M PRN IV PUSH SEE LABEL COMMENTS; Start at 20:30 Lorazepam (Ativan) 1 mg Q4H PRN PO CIWA 8 - 10; Start 03/04/17 at 20:30; Stop 03/08/17 at 13:59; Status DC Lorazepam (Ativan Inj) 1 mg Q4H PRN IV PUSH CIWA 8 - 10; Start 03/04/17 at 20: 30; Stop 03/08/17 at 13:59; Status DC Lorazepam (Ativan) 2 mg Q2H PRN PO CIWA 11-14; Start 03/04/17 at 20:30; Stop 03/08/17 at 13:59; Status DC Lorazepam (Ativan Inj) 2 mg Q2H PRN IV PUSH CIWA 11-14; Start 03/04/17 at 20:30 ; Stop 03/08/17 at 13:59; Status DC Lorazepam (Ativan Inj) 2 mg Q1H PRN IV PUSH CIWA 15-20; Start 03/04/17 at 20:30 ; Stop 03/08/17 at 13:59; Status DC Lorazepam (Ativan Inj) 2 mg Q15M PRN IV PUSH CIWA > 20; Start 03/04/17 at 20:30 ; Stop 03/08/17 at 13:59; Status DC Pharmacy Profile Note 0 ml @ 0 mls/hr UNSCH OTHER ; Start 03/04/17 at 20:30 Vancomycin HCl 1000 mg/Sodium Chloride 250 ml @ 250 mls/hr Q12H IV ; Start 03/04/17 at 20:30; Status UNV Piperacillin Sod/ Tazobactam Sod 50 ml @ 100 mls/hr Q6H IV Last administered on 03/09/17 09:09; Start 03/04/17 at 21:00 Oxycodone/ Acetaminophen (Percocet 7.5-325 Mg) 1 tab Q4H PRN PO pain 6-10 Last administered on 03/09/17 09:08; Start 03/04/17 at 20:30 Vancomycin HCl 1250 mg/Sodium Chloride 262.5 ml @ 250 mls/hr Q12H IV Last administered on 03/09/17 09:13; Start 03/04/17 at 21:00 Miscellaneous Information SPECIFIC LAB TO BE ... ONCE ONCE .XX Last administered on 03/06/17 08:33; Start 03/06/17 at 08:45; Stop 03/06/17 at 08:46 ; Status DC Ketorolac Tromethamine (Toradol Inj) 30 mg Q6HR IV PUSH Last administered on 12:04; Start 03/05/17 at 12:15; Stop 03/06/17 at 12:14; Status DC Iohexol (Omnipaque 350 Inj) 72 ml STK-MED ONCE IVCONTRAST Last administered on 03/05/17 16:32; Start 03/05/17 at 16:32; Stop 03/05/17 at 16:33; Status DC Famotidine (Pepcid) 20 mg BID PO Last administered on 03/09/17 09:08; Start 03/06/17 at 10:45 Hydroxyzine Pamoate (Vistaril) 50 mg Q6H PRN PO anxiety Last administered on 20:25; Start 03/06/17 at 10:45 Potassium Bicarb/ Potassium Chloride (K-Lyte Cl Eff) 25 meq ONCE ONCE PO Last administered on 03/06/17 18:42; Start 03/06/17 at 18:30; Stop 03/06/17 at 18:37; Status DC Potassium Bicarb/ Potassium Chloride (K-Lyte Cl Eff) 25 meq ONCE ONCE PO Last administered on 03/07/17 09:24; Start 03/07/17 at 09:15; Stop 03/07/17 at 09:16; Status DC Lactated Ringer's 1,000 ml @ 30 mls/hr Q24H PRN IV SEE LABEL COMMENTS Last administered on 03/08/17 12:52; Start 03/07/17 at 16:00; Stop 03/10/17 at 15: 59 Sodium Chloride 500 ml @ 30 mls/hr [id number] PRN IV SEE LABEL COMMENTS; Start at 16:00; Stop 03/10/17 at 15:59 Metoprolol Tartrate (Lopressor) 25 mg SHEET METAL HELPER PRN PO SEE LABEL COMMENTS; Start 03/07/17 at 16:15; Stop 03/10/17 at 16:14 Povidone Iodine (Betadine 5% Antisepsis Kit) 1 applic SHEET METAL HELPER PRN EACH NARE SEE LABEL COMMENTS; Start 03/07/17 at 16:15; Stop 03/10/17 at 16:14 Chlorhexidine Gluconate (Chlorhexidine 2% Cloth) 3 pack SHEET METAL HELPER PRN TOPICAL SEE LABEL COMMENTS; Start 03/07/17 at 16:15; Stop 03/10/17 at 16:14 Insulin Human Regular (NovoLIN R INJ) See Protocol Table ... SHEET METAL HELPER PRN SQ SEE PROTOCOL TABLE; Start 03/07/17 at 16:15; Stop 03/10/17 at 16:14 Miscellaneous Information ALL NURSING DEPARTME... UNSCH PRN .XX SEE LABEL COMMENTS; Start 03/08/17 at 14:59; Stop 03/09/17 at 14:58 Hydromorphone HCl (*DILAUDID PF INJ PERIprocedural ONLY) 1 mg STK-MED ONCE .ROUTE Last administered on 03/08/17 15:32; Start 03/08/17 at 15:32; Stop 03/08/17 at 15:33; Status DC A/P Assessment and Plan 42-year-old male with IV drug abuse presents with a three-day history of right upper extremity cellulitis Right upper extremity cellulitis/abscess -Ultrasound negative. CT scan of the arm showed extensive tensor compartment in elongated fluid collection concerning for intramuscular abscess. -Infectious disease consulted and ff. appreciate assistance. -Status post I&D of the right forearm on 03/08/2017. -Blood culture so far negative. Pending wound cultures. -Continue her Percocet for pain. We'll add ibuprofen as needed. BYRON, resolved. -Due to dehydration. Continue with IV fluids. Transaminitis, improving. -Drug screen positive for barbiturates and cocaine. Positive for hepatitis C. Liver ultrasound shows thickening gallbladder wall and small amount of pericholecystic fluid. -Continue to monitor and trend LFTs. -Consult GI. Hepatitis C -Pending genotype and quantitative RNA. Current IV drug user -Drug screen positive for barbiturates and cocaine. -Education given. Acid reflux -On Pepcid Anxiety -As likely secondary to drug dependence. Vistaril when necessary. DVT prophylaxis SCDs Discharge Planning Patient scheduled for the OR today. Jennifer Salamanca MD Mar 09, 2017 09:27
[2017-03-09 10:28] LABS: HEMATOCRIT 29.9 % (39.0-51.0); MEAN CELL VOLUME 87.4 FL (80.0-100.0); MEAN CORPUSCULAR HEMOGLOBIN 30.4 PG (27.0-34.0); MEAN CORPUSCULAR HGB CONC 34.8 % (32.0-36.0); PLATELET COUNT 352 TH/MM3 (150-450); RED BLOOD COUNT 3.42 MIL/MM3 (4.50-5.90); RED CELL DISTRIBUTION WIDTH 13.6 % (11.6-17.2); REVIEW FLAG FINAL; WHITE BLOOD COUNT 10.1 TH/MM3 (4.0-11.0)
--- NOTE | 2017-03-09 10:39 | PD.CAR.PN ---
CVT Progress Note Subjective/Hospital Course: Referral received Full consult to follow Patient to go to the OR tomorrow for I&D of the abscess 03/09/17 Status post I&D of the right arm and the debridement of the devitalized muscle of the dorsal surface of the forearm Patient feels better Cultures have been sent I'll take patient tomorrow for another washout and wound VAC placement Objective: Vital Signs Date Time Temp Pulse Resp B/P (MAP) Pulse Ox O2 Delivery O2 Flow Rate FiO2 03/09/17 08:17 97.7 82 20 161/99 (119) 97 03/09/17 06:03 98.4 84 18 134/73 (93) 93 03/09/17 00:44 98.3 87 16 120/67 (84) 94 03/08/17 20:38 97.9 101 18 153/75 (101) 96 03/08/17 16:42 97.7 78 19 177/87 (117) 93 03/08/17 16:00 81 16 152/76 (101) 95 Nasal Cannula 2 03/08/17 15:45 83 16 158/87 (110) 93 Nasal Cannula 2 03/08/17 15:30 73 16 155/83 (107) 95 Nasal Cannula 2 03/08/17 15:15 76 16 159/87 (111) 95 Nasal Cannula 2 03/08/17 15:00 98.4 94 16 143/74 (97) 91 Nasal Cannula 2 03/08/17 12:06 98.3 78 19 157/85 (109) 98 Labs: Laboratory Tests Test 03/09/17 08:35 White Blood Count 10.1 TH/MM3 (4.0-11.0) Red Blood Count 3.42 MIL/MM3 (4.50-5.90) Hemoglobin 10.4 GM/DL (13.0-17.0) Hematocrit 29.9 % (39.0-51.0) Mean Corpuscular Volume 87.4 FL (80.0-100.0) Mean Corpuscular Hemoglobin 30.4 PG (27.0-34.0) Mean Corpuscular Hemoglobin Concent 34.8 % (32.0-36.0) Red Cell Distribution Width 13.6 % (11.6-17.2) Platelet Count 352 TH/MM3 (150-450) Mean Platelet Volume 7.7 FL (7.0-11.0) Result Diagram: 03/09/17 0835 03/08/17 0815 Otoniel Oseguera MD Mar 09, 2017 10:39
[2017-03-09 10:46] LABS: POTASSIUM 3.2 MEQ/L (3.5-5.1)
--- NOTE | 2017-03-09 11:14 | MP ---
cc: OTONIEL FENG MD DATE OF SURGERY 03/08/2017 PREOPERATIVE DIAGNOSIS Drug abuse, abscess of the dorsal surface of the right arm. POSTOPERATIVE DIAGNOSIS Drug abuse, abscess of the dorsal surface of the right arm. OPERATIVE PROCEDURE Incision, drainage and evacuation of large abscess of the volar surface of the right arm with debridement. SURGEON Otoniel Feng MD ANESTHESIA General ESTIMATED BLOOD LOSS 80 cc PROCEDURE NOTE The patient prepped and draped in the usual fashion. A longitudinal incision made over the dorsal aspect of the right arm extending about 2 inches below the elbow to just about an inch above the wrist. It was deepened down through subcutaneous tissue and fascia. About 100 cc of purulent material obtained which is cultured for aerobes and anaerobes, but the thing looks and smells like MRSA. This was washed out with copious amounts of saline and then the area is explored. The extensor compartment is clearly damaged from repeated from illicit drug injection. Some of the muscle appears to be nonviable. This is debrided. The area is now irrigated with copious amounts of saline and then packed with Betadine gauze. A dressing is applied. This patient will be taken probably back to the operating room in the next 48 hours for repeat I&D of the same. Otoniel ROLLINS /10:32 AM /11:03 AM
[2017-03-09] MEDS: IBUPROFEN 800 MG TAB PO PRN ×2 (11:19→21:01)
--- NOTE | 2017-03-09 13:00 | PD.CONS ---
HPI History of Present Illness This is a 42 year old male with hx IVDU who presented with right arm cellulitis. he is s/p I&D, is having another tomorrow. GI has been consulted for elevated LFTs. Denies any hx liver problems, still has gallbladder. Drinks 2-4 beers per day. Is Hep C reactive, quant and genotype pending. Admits nausea and dry heaves every morning on waking "and then i'm good the rest of the day." He admits reflux, takes prilosec. Admits loose watery stool his whole life. Admits black tarry stool intermittently, last had one 2 days ago. Says he was diagnosed with bleeding ulcers as a teenager via an exam taht sounds like a barium swallow. Never had EGD or colonoscopy. Admits 20lbs weight loss over the summer. He denies abd pain, hematemesis, red blood in stool. (Toya Zarate) PFSH Past Medical History None Past Surgical History Unspecified vascular surgery on the left lower extremity 6 years ago (Toya Zarate) Coded Allergies: No Known Allergies (Unverified , 03/04/17) Family History None. Mother and father without significant medical comorbidities. Social History Endorses drinking a 4 pack of beer daily. Denies marijuana. IV drug abuse with Dilaudid and heroin and, last injection 3 days ago (Toya Zarate) Review of Systems Constitutional: COMPLAINS OF: Weight loss Eyes: DENIES: Photosensitivity Ears, nose, mouth, throat: DENIES: Hearing loss Respiratory: DENIES: Hemoptysis Cardiovascular: DENIES: Chest pain Gastrointestinal: COMPLAINS OF: Black stools, Diarrhea, Nausea, Heartburn, DENIES: Abdominal pain, Bloody stools, Constipation, Vomiting, Hematemesis Genitourinary: DENIES: Hematuria Musculoskeletal: DENIES: Joint Swelling Integumentary: DENIES: Jaundice Hematologic/lymphatic: DENIES: Bruising Neurologic: DENIES: Paresthesias Psychiatric: DENIES: Confusion (Toya Zarate) GI Exam Vitals I&O Vital Signs Date Time Temp Pulse Resp B/P (MAP) Pulse Ox O2 Delivery O2 Flow Rate FiO2 03/09/17 12:21 98.3 87 20 139/78 (98) 97 03/09/17 08:17 97.7 82 20 161/99 (119) 97 03/09/17 06:03 98.4 84 18 134/73 (93) 93 03/09/17 00:44 98.3 87 16 120/67 (84) 94 03/08/17 20:38 97.9 101 18 153/75 (101) 96 03/08/17 16:42 97.7 78 19 177/87 (117) 93 03/08/17 16:00 81 16 152/76 (101) 95 Nasal Cannula 2 03/08/17 15:45 83 16 158/87 (110) 93 Nasal Cannula 2 03/08/17 15:30 73 16 155/83 (107) 95 Nasal Cannula 2 03/08/17 15:15 76 16 159/87 (111) 95 Nasal Cannula 2 03/08/17 15:00 98.4 94 16 143/74 (97) 91 Nasal Cannula 2 I/O 03/08/17 03/08/17 03/08/17 03/09/17 03/09/17 03/09/17 07:00 15:00 23:00 07:00 15:00 23:00 Intake Total 1501.5 ml 637.5 ml 50 ml 50 ml Output Total 100 ml Balance 1401.5 ml 637.5 ml 50 ml 50 ml IV Total 1001.5 ml 637.5 ml 50 ml 50 ml Other 500 ml Output Estimated Blood Loss 100 ml # Voids 3 Imaging Last Impressions Upper Extremity CT 03/05/17 0000 Signed Impressions: Service Date/Time: Sunday, March 05, 2017 15:56 - CONCLUSION: No fluid collections or acute bony abnormality of the hand. Jonatan Wheeler MD Liver Ultrasound 03/05/17 0000 Signed Impressions: Service Date/Time: Sunday, March 05, 2017 18:29 - CONCLUSION: 1. Hepatomegaly. 2. Gallbladder wall thickening and trace pericholecystic fluid suspected. No stones are seen. Negative Pierre's sign. Ty Pete MD Upper Extremity Ultrasound 03/04/17 0000 Signed Impressions: Service Date/Time: Saturday, March 04, 2017 16:45 - CONCLUSION: No venous thrombosis of the right upper extremity. Jonatan Wheeler MD Laboratory Test 03/09/17 08:35 White Blood Count 10.1 TH/MM3 Red Blood Count 3.42 MIL/MM3 Hemoglobin 10.4 GM/DL Hematocrit 29.9 % Mean Corpuscular Volume 87.4 FL Mean Corpuscular Hemoglobin 30.4 PG Mean Corpuscular Hemoglobin Concent 34.8 % Red Cell Distribution Width 13.6 % Platelet Count 352 TH/MM3 Mean Platelet Volume 7.7 FL Blood Urea Nitrogen 9 MG/DL Creatinine 0.77 MG/DL Random Glucose 91 MG/DL Calcium Level 8.1 MG/DL Sodium Level 140 MEQ/L Potassium Level 3.2 MEQ/L Chloride Level 106 MEQ/L Carbon Dioxide Level 22.0 MEQ/L Anion Gap 12 MEQ/L Estimat Glomerular Filtration Rate 111 ML/MIN Date/Time Source Procedure Growth Status 03/04/17 16:30 Blood Peripheral Aerobic Blood Culture - Final NO GROWTH IN 5 DAYS Complete 03/04/17 16:30 Blood Peripheral Anaerobic Blood Culture - Final NO GROWTH IN 5 DAYS Complete 03/08/17 14:45 Wound Arm Fungal Smear - Final NO FUNGAL ELEMENTS SEEN. Resulted 03/08/17 14:45 Wound Arm Fungal Culture Pending Resulted Physical Examination HEENT: PERRL; normocephalic; atraumatic; no jaundice. CHEST: CTA CARDIAC: RRR ABDOMEN: Soft, nondistended, nontender; no hepatosplenomegaly; bowel sounds are present in all four quadrants. EXTREMITIES: No clubbing, cyanosis, or edema. absent right 5th toe. bandage right arm, clean and dry. SKIN: Normal; no rash; no jaundice. HEAD BOOKKEEPER: No focal deficits; alert and oriented times three. (Toya Zarate PSYCHIATRIC NURSING AIDE) Assessment and Plan Plan ASSESSMENT - elevated LFTs - unclear etiology. etoh vs hep c...hep c ab reactive, quant and genotype pending. will get rest of liver w/u to r/o other cause - nausea - and dry heaves, every morning on waking. ?reflux - weight loss - 20lb weight loss over summer. hx drug abuse - anemia - normocytic. HH stable. admits intermittent black tarry stools and distant hx bleeding ulcer - right arm cellulitis per primary, GS following, surgery tomorrow. PLAN - await hep c genotype and quant - liver w/u - consider EGD/colonoscopy as outpatient - monitor labs - stool occult blood - further recs to follow This pt seen by myself and Dr Larry and this note is written on his behalf (Toya Zarate) Physician Comments Seen and examined, plan as above. Other active problems at the current time. HCV PCR and Genotype pending. Will follow up with you periodically for further recommendations . (Onesimo Larry MD) Toya Zarate Mar 09, 2017 13:00 Onesimo Larry MD Mar 09, 2017 13:18
--- NOTE | 2017-03-09 16:51 | HHI.PR ---
Addendum to Inpatient Note Additional Information pt seen around 2pm; full note to follow sp surgery - extensive abscess GPC on Gstain cont current abx Carmen Davidson MD Mar 09, 2017 16:51
--- NOTE | 2017-03-09 22:36 | HHI.IDPN ---
Subjective Subjective Remarks delayed entry pt seen around 2pm; sp surgery - extensive abscess per op report from the wrist to the elbow GPC on Gstain no fever pressure like pain markedly improved Antibiotics zosyn vancomycin Allergies: Coded Allergies: No Known Allergies (Unverified , 03/04/17) Objective . Vital Signs Date Time Temp Pulse Resp B/P (MAP) Pulse Ox O2 Delivery O2 Flow Rate FiO2 03/09/17 21:21 21 03/09/17 20:56 98.4 76 18 154/77 (102) 92 03/09/17 16:31 98.7 85 20 134/61 (85) 94 03/09/17 12:50 95 21 03/09/17 12:21 98.3 87 20 139/78 (98) 97 03/09/17 08:17 97.7 82 20 161/99 (119) 97 03/09/17 06:03 98.4 84 18 134/73 (93) 93 03/09/17 00:44 98.3 87 16 120/67 (84) 94 03/09/17 03/09/17 03/10/17 15:00 23:00 07:00 Intake Total 930 ml 50 ml Balance 930 ml 50 ml Intake Oral 630 ml IV Total 300 ml 50 ml # Voids 3 . Laboratory Tests Test 03/08/17 08:15 03/09/17 08:35 White Blood Count 10.9 TH/MM3 10.1 TH/MM3 Red Blood Count 2.80 MIL/MM3 3.42 MIL/MM3 Hemoglobin 8.5 GM/DL 10.4 GM/DL Hematocrit 24.2 % 29.9 % Mean Corpuscular Volume 86.5 FL 87.4 FL Mean Corpuscular Hemoglobin 30.5 PG 30.4 PG Mean Corpuscular Hemoglobin Concent 35.3 % 34.8 % Red Cell Distribution Width 13.9 % 13.6 % Platelet Count 245 TH/MM3 352 TH/MM3 Mean Platelet Volume 7.6 FL 7.7 FL Laboratory Tests Test 03/08/17 08:15 03/09/17 08:35 Blood Urea Nitrogen 7 MG/DL 9 MG/DL Creatinine 0.73 MG/DL 0.77 MG/DL Random Glucose 93 MG/DL 91 MG/DL Calcium Level 8.1 MG/DL 8.1 MG/DL Sodium Level 145 MEQ/L 140 MEQ/L Potassium Level 3.2 MEQ/L 3.2 MEQ/L Chloride Level 112 MEQ/L 106 MEQ/L Carbon Dioxide Level 21.4 MEQ/L 22.0 MEQ/L Anion Gap 12 MEQ/L 12 MEQ/L Estimat Glomerular Filtration Rate 118 ML/MIN 111 ML/MIN Microbiology Date/Time Source Procedure Growth Status 03/08/17 14:45 Wound Arm Fungal Smear - Final NO FUNGAL ELEMENTS SEEN. Resulted 03/08/17 14:45 Wound Arm Fungal Culture Pending Resulted 03/08/17 14:45 Wound Arm Acid Fast Stain Pending Received 03/08/17 14:45 Wound Arm Mycobacterial Culture Pending Received 03/08/17 14:45 Wound Arm Gram Stain - Final Resulted 03/08/17 14:45 Wound Arm Wound Culture - Preliminary IMMATURE GROWTH - REINCUBATE Resulted 03/08/17 14:45 Wound Arm Fungal Smear - Final NO FUNGAL ELEMENTS SEEN. Resulted 03/08/17 14:45 Wound Arm Fungal Culture Pending Resulted 03/08/17 14:45 Wound Arm Acid Fast Stain Pending Received 03/08/17 14:45 Wound Arm Mycobacterial Culture Pending Received 03/08/17 14:45 Wound Arm Gram Stain - Final Resulted 03/08/17 14:45 Wound Arm Wound Culture - Preliminary IMMATURE GROWTH - REINCUBATE Resulted Imaging Last Impressions Upper Extremity CT 03/05/17 0000 Signed Impressions: Service Date/Time: Sunday, March 05, 2017 15:56 - CONCLUSION: No fluid collections or acute bony abnormality of the hand. Jonatan Wheeler MD Liver Ultrasound 03/05/17 0000 Signed Impressions: Service Date/Time: Sunday, March 05, 2017 18:29 - CONCLUSION: 1. Hepatomegaly. 2. Gallbladder wall thickening and trace pericholecystic fluid suspected. No stones are seen. Negative Pierre's sign. Ty Pete MD Upper Extremity Ultrasound 03/04/17 0000 Signed Impressions: Service Date/Time: Saturday, March 04, 2017 16:45 - CONCLUSION: No venous thrombosis of the right upper extremity. Jonatan Wheeler MD Physical Exam CONSTITUTIONAL/GENERAL: This is an adequately nourished patient, in no apparent distress. TUBES/LINES/DRAINS: SKIN: No jaundice, rashes, or lesions. EYES: . No scleral icterus. No injection or drainage. CARDIOVASCULAR: Regular rate and rhythm without murmurs, gallops, or rubs. No JVD. Peripheral pulses symmetric. RESPIRATORY/CHEST: Symmetric, unlabored respirations. Clear to auscultation. GASTROINTESTINAL: Abdomen soft, RUQ tenderness, mild , no guarding/rebound , nondistended. MUSCULOSKELETAL: Extremities without clubbing, cyanosis, or edema. No joint tenderness or effusion noted. No calf tenderness. No mottling or clubbing. RUE with surgical dressing in place erythema is markedly decreased, no erythema above elbow LYMPHATICS: No palpable cervical axillae or supraclavicular adenopathy. NEUROLOGICAL: Awake and alert. non focal PSYCHIATRIC: No obvious anxiety/depression. no apparent hallucinations or other psychotic thought process. Assessment & Plan Remarks IVDU RUE cellulits, large abscess originating in distal forearm sp surgical drainage ABx -associated diarrhea, c.diff negative ? cholecytitis Gallbladder wall thickening and trace pericholecystic fluid suspected. No stones are seen GI ff Rec's cont b\vancomycin dc zosyn fu op clx anticipate eventaul transition to po abx Carmen Davidson MD Mar 09, 2017 22:36
[2017-03-10 01:19] VITALS: BP 152/84; PULSE 63; RESP 18; TEMP 97.8; O2SAT 96
[2017-03-10] MEDS: oxyCODONE/ACETAMINOPHEN 7.5 MG/325 MG TAB PO PRN ×4 (05:07→21:36)
[2017-03-10] MEDS: DOCUSATE SODIUM 50 MG/SENNA 8.6 MG TAB PO SCH ×3 (07:15→21:37)
[2017-03-10 08:01] LABS: HEMATOCRIT 25.8 % (39.0-51.0); MEAN CELL VOLUME 87.2 FL (80.0-100.0); MEAN CORPUSCULAR HEMOGLOBIN 30.3 PG (27.0-34.0); MEAN CORPUSCULAR HGB CONC 34.8 % (32.0-36.0); PLATELET COUNT 343 TH/MM3 (150-450); RED BLOOD COUNT 2.96 MIL/MM3 (4.50-5.90); REVIEW FLAG FINAL; WHITE BLOOD COUNT 9.4 TH/MM3 (4.0-11.0)
[2017-03-10 08:26] LABS: BICARBONATE 24.4 MEQ/L (21.0-32.0); POTASSIUM 3.5 MEQ/L (3.5-5.1)
[2017-03-10] MEDS: VANCOMYCIN INJ 1,250 MG in SODIUM CHLOR 0.9% 250 ML INJ 250 ML IV SCH (08:38)
[2017-03-10] MEDS: SODIUM CHLORIDE 0.9% FLUSH 10 ML FLUSH IV FLUSH SCH ×2 (08:38→21:00)
[2017-03-10] MEDS: FAMOTIDINE 20 MG TAB PO SCH ×2 (08:38→21:37)
[2017-03-10] MEDS ORDERED: PHARMACY ORDERED LAB ONE (08:45)
[2017-03-10 10:23] VITALS: BP 159/78; PULSE 64; RESP 18; TEMP 98.1; O2SAT 96
[2017-03-10] MEDS ORDERED: KETOROLAC TROMETHAMINE 30 MG/ML (IVP) VIAL IV PUSH ONE (12:00)
[2017-03-10] MEDS ORDERED: LIDOCAINE HCL 1% PF 5 ML AMPULE OTHER ONE (12:00)
[2017-03-10] MEDS ORDERED: PROPOFOL 200 MG/20 ML AMP IV ONE (12:00)
[2017-03-10] MEDS ORDERED: NEOSTIGMINE 3 MG/3 ML SYR IV ONE (12:00)
[2017-03-10] MEDS ORDERED: ROCURONIUM INJ 50 MG/5 ML SYRINGE IV PUSH ONE (12:00)
[2017-03-10] MEDS ORDERED: MIDAZOLAM HCL 2 MG/2 ML VIAL IV ONE (12:00)
[2017-03-10] MEDS ORDERED: ePHEDrine/NS 25 MG/5 ML SYR IV ONE (12:00)
[2017-03-10] MEDS ORDERED: ONDANSETRON HCL 4 MG/2 ML VIAL IV PUSH ONE (12:00)
[2017-03-10] MEDS ORDERED: MORPHINE SULFATE 4 MG/ML INJ IV ONE (12:00)
[2017-03-10] MEDS ORDERED: DEXAMETHASONE SOD PHOS 4 MG/ML VIAL IV ONE (12:00)
[2017-03-10] MEDS ORDERED: GLYCOPYRROLATE 1 MG/5 ML SYRINGE IV PUSH ONE (12:00)
--- NOTE | 2017-03-10 12:54 | HHI.PR ---
Subjective Remarks Follow-up for right arm cellulitis/abscess and hepatitis Patient scheduled for OR today. He has no complaints. He feels like he is doing better. Pain control. Objective Vitals Vital Signs Date Time Temp Pulse Resp B/P (MAP) Pulse Ox O2 Delivery O2 Flow Rate FiO2 03/10/17 10:23 98.1 64 18 159/78 (105) 96 03/10/17 01:19 97.8 63 18 152/84 (106) 96 03/09/17 21:21 21 03/09/17 20:56 98.4 76 18 154/77 (102) 92 03/09/17 16:31 98.7 85 20 134/61 (85) 94 I/O 03/09/17 03/09/17 03/09/17 03/10/17 03/10/17 03/10/17 07:00 15:00 23:00 07:00 15:00 23:00 Intake Total 50 ml 930 ml 50 ml Balance 50 ml 930 ml 50 ml Intake Oral 630 ml IV Total 50 ml 300 ml 50 ml # Voids 3 3 2 # Bowel Movements 0 Result Diagram: 03/10/1772503/10/17725 Objective Remarks GENERAL: White male lying in bed SKIN: right arm wrapped in gauze. Yellowish discharge noted. Pulses intact. Sensation is also intact. CARDIOVASCULAR: Regular rate and rhythm without murmurs, gallops, or rubs. RESPIRATORY: Clear to auscultation. Breath sounds equal bilaterally. No wheezes , rales, or rhonchi. Abd: soft. NDNT. Negative for any peritoneal signs. Normal active bowel sounds. Medications and IVs Current Medications Ondansetron HCl (Zofran Inj) 4 mg ONCE ONCE IV PUSH Last administered on 16:46; Start 03/04/17 at 16:30; Stop 03/04/17 at 16:31; Status DC Sodium Chloride 1,000 ml @ 1,000 mls/hr Q1H ONCE IV Last administered on 16:45; Start 03/04/17 at 16:23; Stop 03/04/17 at 17:22; Status DC Oxycodone/ Acetaminophen (Percocet 5-325 Mg) 1 tab ONCE ONCE PO Last administered on 03/04/17 16:45; Start 03/04/17 at 16:30; Stop 03/04/17 at 16:31 ; Status DC Clindamycin Phosphate/Dextrose 50 ml @ 100 mls/hr ONCE ONCE IV ; Start at 17:30; Stop 03/04/17 at 17:34; Status DC Clindamycin Phosphate 900 mg/ Sodium Chloride 106 ml @ 212 mls/hr ONCE ONCE IV Last administered on 03/04/17 18:36; Start 03/04/17 at 17:30; Stop at 17:59; Status DC Ketorolac Tromethamine (Toradol Inj) 30 mg ONCE ONCE IV PUSH Last administered on 03/04/17 18:36; Start 03/04/17 at 18:15; Stop 03/04/17 at 18:16 ; Status DC Sodium Chloride 1,000 ml @ 125 mls/hr Q8H IV Last administered on 03/08/17 16 :40; Start 03/04/17 at 20:20; Stop 03/09/17 at 09:39; Status DC Sodium Chloride (NS Flush) 2 ml UNSCH PRN IV FLUSH FLUSH AFTER USING IV ACCESS ; Start 03/04/17 at 20:30 Sodium Chloride (NS Flush) 2 ml BID IV FLUSH Last administered on 03/10/17 08 :38; Start 03/04/17 at 21:00 Acetaminophen (Tylenol) 650 mg Q4H PRN PO TEMP > 100.4 Last administered on 21:48; Start 03/04/17 at 20:30 Ondansetron HCl (Zofran Inj) 4 mg Q6H PRN IVP NAUSEA OR VOMITING Last administered on 03/06/17 00:18; Start 03/04/17 at 20:30 Naloxone HCl (Narcan Inj) 0.4 mg UNSCH PRN IV PUSH SEE LABEL COMMENTS; Start 03/04/17 at 20:30 Senna/Docusate Sodium (Jolene-Colace) 1 tab BID PO Last administered on 21:00; Start 03/04/17 at 21:00 Magnesium Hydroxide (Milk Of Magnesia Liq) 30 ml Q12H PRN PO Mild constipation ; Start 03/04/17 at 20:30 Sennosides (Senokot) 17.2 mg Q12H PRN PO Moderate constipation; Start 03/04/17 at 20:30 Bisacodyl (Dulcolax Supp) 10 mg DAILY PRN RECTAL SEVERE CONSITIPATION; Start 03/04/17 at 20:30 Lactulose (Lactulose Liq) 30 ml DAILY PRN PO SEVERE CONSITIPATION; Start at 20:30 Flumazenil (Romazicon Inj) 0.2 mg Q1M PRN IV PUSH SEE LABEL COMMENTS; Start at 20:30 Lorazepam (Ativan) 1 mg Q4H PRN PO CIWA 8 - 10; Start 03/04/17 at 20:30; Stop 03/08/17 at 13:59; Status DC Lorazepam (Ativan Inj) 1 mg Q4H PRN IV PUSH CIWA 8 - 10; Start 03/04/17 at 20: 30; Stop 03/08/17 at 13:59; Status DC Lorazepam (Ativan) 2 mg Q2H PRN PO CIWA 11-14; Start 03/04/17 at 20:30; Stop 03/08/17 at 13:59; Status DC Lorazepam (Ativan Inj) 2 mg Q2H PRN IV PUSH CIWA 11-14; Start 03/04/17 at 20:30 ; Stop 03/08/17 at 13:59; Status DC Lorazepam (Ativan Inj) 2 mg Q1H PRN IV PUSH CIWA 15-20; Start 03/04/17 at 20:30 ; Stop 03/08/17 at 13:59; Status DC Lorazepam (Ativan Inj) 2 mg Q15M PRN IV PUSH CIWA > 20; Start 03/04/17 at 20:30 ; Stop 03/08/17 at 13:59; Status DC Pharmacy Profile Note 0 ml @ 0 mls/hr UNSCH OTHER ; Start 03/04/17 at 20:30; Stop 03/10/17 at 12:03; Status DC Vancomycin HCl 1000 mg/Sodium Chloride 250 ml @ 250 mls/hr Q12H IV ; Start 03/04/17 at 20:30; Status UNV Piperacillin Sod/ Tazobactam Sod 50 ml @ 100 mls/hr Q6H IV Last administered on 03/09/17t 20:59; Start 03/04/17 at 21:00; Stop 03/09/17 at 22:37; Status DC Oxycodone/ Acetaminophen (Percocet 7.5-325 Mg) 1 tab Q4H PRN PO pain 6-10 Last administered on 03/10/17 08:38; Start 03/04/17 at 20:30 Vancomycin HCl 1250 mg/Sodium Chloride 262.5 ml @ 250 mls/hr Q12H IV Last administered on 03/10/17 08:38; Start 03/04/17 at 21:00; Stop 03/10/17 at 12: 03; Status DC Miscellaneous Information SPECIFIC LAB TO BE OMAR... ONCE ONCE .XX Last administered on 03/06/17 08:33; Start 03/06/17 at 08:45; Stop 03/06/17 at 08:46 ; Status DC Ketorolac Tromethamine (Toradol Inj) 30 mg Q6HR IV PUSH Last administered on 12:04; Start 03/05/17 at 12:15; Stop 03/06/17 at 12:14; Status DC Iohexol (Omnipaque 350 Inj) 72 ml STK-MED ONCE IVCONTRAST Last administered on 03/05/17 16:32; Start 03/05/17 at 16:32; Stop 03/05/17 at 16:33; Status DC Famotidine (Pepcid) 20 mg BID PO Last administered on 03/10/17 08:38; Start 03/06/17 at 10:45 Hydroxyzine Pamoate (Vistaril) 50 mg Q6H PRN PO anxiety Last administered on 13:45; Start 03/06/17 at 10:45 Potassium Bicarb/ Potassium Chloride (K-Lyte Cl Eff) 25 meq ONCE ONCE PO Last administered on 03/06/17 18:42; Start 03/06/17 at 18:30; Stop 03/06/17 at 18:37; Status DC Potassium Bicarb/ Potassium Chloride (K-Lyte Cl Eff) 25 meq ONCE ONCE PO Last administered on 03/07/17 09:24; Start 03/07/17 at 09:15; Stop 03/07/17 at 09:16; Status DC Lactated Ringer's 1,000 ml @ 30 mls/hr Q24H PRN IV SEE LABEL COMMENTS Last administered on 03/08/17 12:52; Start 03/07/17 at 16:00; Stop 03/10/17 at 15: 59 Sodium Chloride 500 ml @ 30 mls/hr [id number] PRN IV SEE LABEL COMMENTS; Start at 16:00; Stop 03/10/17 at 15:59 Metoprolol Tartrate (Lopressor) 25 mg [employer] PRN PO SEE LABEL COMMENTS; Start 03/07/17 at 16:15; Stop 03/10/17 at 16:14 Povidone Iodine (Betadine 5% Antisepsis Kit) 1 applic [employer] PRN EACH NARE SEE LABEL COMMENTS; Start 03/07/17 at 16:15; Stop 03/10/17 at 16:14 Chlorhexidine Gluconate (Chlorhexidine 2% Cloth) 3 pack [employer] PRN TOPICAL SEE LABEL COMMENTS; Start 03/07/17 at 16:15; Stop 03/10/17 at 16:14 Insulin Human Regular (NovoLIN R INJ) See Protocol Table ... [employer] PRN SQ SEE PROTOCOL TABLE; Start 03/07/17 at 16:15; Stop 03/10/17 at 16:14 Miscellaneous Information ALL NURSING DEPARTME... UNSCH PRN .XX SEE LABEL COMMENTS; Start 03/08/17 at 14:59; Stop 03/09/17 at 14:58; Status DC Hydromorphone HCl (*DILAUDID PF INJ PERIprocedural ONLY) 1 mg STK-MED ONCE .ROUTE Last administered on 03/08/17 15:32; Start 03/08/17 at 15:32; Stop 03/08/17 at 15:33; Status DC Ibuprofen (Motrin) 800 mg Q6HR PRN PO breakthrough pain Last administered on 21:01; Start 03/09/17 at 10:00 Miscellaneous Information SPECIFIC LAB TO BE DRAWN:VANCOMYCIN TROUGH DATE TO... ONCE ONCE .XX Last administered on 03/10/17 07:14; Start 03/10/17 at 08:45 ; Stop 03/10/17 at 08:46; Status DC Ampicillin Sodium 2000 mg/Sodium Chloride 100 ml @ 400 mls/hr Q4H IV ; Start 03/10/17 at 14:00 A/P Assessment and Plan 42-year-old male with IV drug abuse presents with a three-day history of right upper extremity cellulitis Right upper extremity cellulitis/abscess -Ultrasound negative. CT scan of the arm showed extensive tensor compartment in elongated fluid collection concerning for intramuscular abscess. -Infectious disease consulted and ff. appreciate assistance. -Status post I&D of the right forearm on 03/08/2017. -Patient scheduled for the OR for another washout and wound VAC placement -Blood culture so far negative. Wound cultures show group a beta strep. -Continue Percocet and ibuprofen as needed for pain. BYRON, resolved. -Due to dehydration. Continue with IV fluids. Transaminitis, improving. -Drug screen positive for barbiturates and cocaine. Positive for hepatitis C. Liver ultrasound shows thickening gallbladder wall and small amount of pericholecystic fluid. -Continue to monitor and trend LFTs. -Consult GI and appreciate recommendation. Per GI patient can have EGD and colonoscopy as outpatient. -Patient to follow-up with GI as outpatient. Hepatitis C -Pending genotype and quantitative RNA. Current IV drug user -Drug screen positive for barbiturates and cocaine. -Education given. Acid reflux -On Pepcid Anxiety -Most likely secondary to drug dependence. Vistaril when necessary. DVT prophylaxis SCDs Discharge Planning Patient scheduled for the OR today. Jennifer Salamanca MD Mar 10, 2017 12:54
[2017-03-10] MEDS ORDERED: HYDROmorphone HCL PF 2 MG/ML VIAL ONE (13:32)
[2017-03-10] MEDS ORDERED: FAMOTIDINE 20 MG/2 ML VIAL ONE (13:32)
[2017-03-10] MEDS ORDERED: KETAMINE HCL 500 MG/10 ML VIAL ONE (13:35)
--- NOTE | 2017-03-10 13:44 | HHI.PR ---
Addendum to Inpatient Note Additional Information Pt is in OR Growing GAS in wound clx Rec's - dc vanco start ampicillin anticipate transition to po uopn sc (amoxicillin or Keflex) to complete 10- 14 days of abx (post op) Carmen Davidson MD Mar 10, 2017 13:44
[2017-03-10] MEDS: AMPICILLIN INJ 2,000 MG in SODIUM CHLORIDE 0.9% INJ 100 ML IV SCH ×3 (14:00→21:38)
[2017-03-10 14:39] VITALS: BP 148/79; PULSE 65; RESP 16; TEMP 98.4; O2SAT 97
[2017-03-10] MEDS ORDERED: DO NOT ADM ANY ANTICOAGULANT DRUGS PRN (15:45)
[2017-03-10] MEDS ORDERED: *morphine SULFATE 8 MG/ML PERIprocedure ONLY ONE ×2 (15:56→16:13)
[2017-03-10 18:24] VITALS: BP 140/67; PULSE 92; RESP 17; TEMP 97.7; O2SAT 91
[2017-03-10 20:15] VITALS: BP 143/85; PULSE 100; RESP 18; TEMP 98; O2SAT 98
--- NOTE | 2017-03-10 21:52 | MP ---
cc: OTONIEL FENG MD DATE OF SURGERY: 03/10/2017. PREOPERATIVE DIAGNOSIS: Large abscess of the dorsal surface of the arm status post fasciotomy and evacuation of abscess. POSTOPERATIVE DIAGNOSIS: Large abscess of the dorsal surface of the arm status post fasciotomy and evacuation of abscess. OPERATIVE PROCEDURE PERFORMED: Debridement of the right arm, washout and placement of a wound VAC. SURGEON: Otoniel Feng M.D. ANESTHESIA: General. ESTIMATED BLOOD LOSS: 10 cc. DESCRIPTION OF THE PROCEDURE IN DETAIL: The patient was prepped and draped in the usual sterile fashion. The area was exposed. All the muscle appeared to be really clean and there was no purulent drainage. It was irrigated with copious amounts of saline. There were some areas of muscle that appeared to be somewhat grungy and devitalized and this was debrided with cautery and Metzenbaum scissors. Nice bleeding was obtained from the muscle and it was clearly viable. The area was irrigated once more with saline and the wound VAC applied and connected to 125 mmHg continuous suction. The patient was transferred to the floor. Otoniel JEFF/ARTHUR /5:36 PM /9:45 PM
[2017-03-11] VITALS (7 sets, daily range): BP systolic 127–154; BP diastolic 71–86; PULSE 76–93; RESP 17–18; TEMP 98–98.7; O2SAT 94–96
[2017-03-11] MEDS: oxyCODONE/ACETAMINOPHEN 7.5 MG/325 MG TAB PO PRN ×5 (02:59→22:04)
[2017-03-11] MEDS: AMPICILLIN INJ 2,000 MG in SODIUM CHLORIDE 0.9% INJ 100 ML IV SCH ×6 (02:59→22:06)
[2017-03-11 03:52] LABS: HCV RNA PCR IU/ML 745000 IU/mL (0-14); HCV RNA PCR LOGIU/ML 5.87 (0-1.18)
[2017-03-11] MEDS: FAMOTIDINE 20 MG TAB PO SCH ×2 (08:36→22:04)
[2017-03-11] MEDS: SODIUM CHLORIDE 0.9% FLUSH 10 ML FLUSH IV FLUSH SCH ×2 (08:36→22:05)
[2017-03-11 09:51] LABS: HEPATITIS C RNA GENOTYPE 1a (NOT DETECTD)
--- NOTE | 2017-03-11 10:10 | HHI.PR ---
Subjective Remarks n bed. Says pain is controlled, moving fingers. . No fever or chills. No n/v/d/ c. Eating well. Objective Vitals Vital Signs Date Time Temp Pulse Resp B/P (MAP) Pulse Ox O2 Delivery O2 Flow Rate FiO2 03/11/17 08:19 98.5 76 17 152/86 (108) 94 03/11/17 04:56 98.0 84 18 127/71 (89) 95 03/11/17 00:54 98.4 93 18 139/82 (101) 96 03/10/17 20:15 98.0 100 18 143/85 (104) 98 03/10/17 18:24 97.7 92 17 140/67 (91) 91 03/10/17 16:15 98.2 79 20 128/59 (82) 96 Nasal Cannula 2 03/10/17 16:00 79 20 132/60 (84) 93 Nasal Cannula 2 03/10/17 15:45 84 20 133/96 (108) 93 Nasal Cannula 3 03/10/17 15:43 98.2 92 20 134/98 (110) 93 Nasal Cannula 3 03/10/17 14:39 98.4 65 16 148/79 (102) 97 03/10/17 10:23 98.1 64 18 159/78 (105) 96 I/O 03/10/17 03/10/17 03/10/17 03/11/17 03/11/17 03/11/17 07:00 15:00 23:00 07:00 15:00 23:00 Intake Total 250 ml 100 ml Output Total 200 ml Balance 250 ml -100 ml IV Total 250 ml 100 ml Output Urine Total 200 ml # Voids 2 6 # Bowel Movements 0 Result Diagram: 03/10/1772503/10/17725 Imaging Last Impressions Upper Extremity CT 03/05/17 0000 Signed Impressions: Service Date/Time: Sunday, March 05, 2017 15:56 - CONCLUSION: No fluid collections or acute bony abnormality of the hand. Jonatan Wheeler MD Liver Ultrasound 03/05/17 0000 Signed Impressions: Service Date/Time: Sunday, March 05, 2017 18:29 - CONCLUSION: 1. Hepatomegaly. 2. Gallbladder wall thickening and trace pericholecystic fluid suspected. No stones are seen. Negative Pierre's sign. Ty Pete MD Upper Extremity Ultrasound 03/04/17 0000 Signed Impressions: Service Date/Time: Saturday, March 04, 2017 16:45 - CONCLUSION: No venous thrombosis of the right upper extremity. Jonatan Wheeler MD Objective Remarks GENERAL: 42 yo male, in bed doesn't appear in distress. SKIN: Right arm wrapped in gauze. Wound vac in place. Neurovascular intact. CARDIOVASCULAR: Regular rate and rhythm. RESPIRATORY: No accessory muscle use. Clear to auscultation. Breath sounds equal bilaterally. GASTROINTESTINAL: Abdomen soft, non-tender, nondistended. Hepatic and splenic margins not palpable. MUSCULOSKELETAL: Extremities without clubbing, cyanosis, or edema. No obvious deformities. NEUROLOGICAL: Awake and alert. No obvious cranial nerve deficits. Motor grossly within normal limits. Five out of 5 muscle strength in the arms and legs. Normal speech. PSYCHIATRIC: Appropriate mood and affect; insight and judgment normal. A/P Assessment and Plan 42-year-old male with IV drug abuse presents with a three-day history of right upper extremity cellulitis Right upper extremity cellulitis/abscess -Ultrasound negative. CT scan of the arm showed extensive tensor compartment in elongated fluid collection concerning for intramuscular abscess. -Infectious disease consulted and ff. appreciate assistance. -Status post I&D of the right forearm on 03/08/2017. -S/P OR for another washout and wound VAC placement 03/11/17 -Blood culture so far negative. Wound cultures show group a beta strep. DC vanco. Anticipate transition to po uopn sc (amoxicillin or Keflex) to complete 10-14 days of abx (post op). Plan to DC on PO antibiotics per ID specialist appreciate recommendations. -Continue Percocet and ibuprofen as needed for pain. BYRON, resolved. -Due to dehydration. Continue with IV fluids. Transaminitis, improving. -Drug screen positive for barbiturates and cocaine. Positive for hepatitis C. Liver ultrasound shows thickening gallbladder wall and small amount of pericholecystic fluid. -Continue to monitor and trend LFTs. -Consult GI and appreciate recommendation. Per GI patient can have EGD and colonoscopy as outpatient. -Patient to follow-up with GI as outpatient. Hepatitis C -Pending genotype and quantitative RNA. Current IV drug user -Drug screen positive for barbiturates and cocaine. -Education given. Acid reflux -On Pepcid Anxiety -Most likely secondary to drug dependence. Vistaril when necessary. DVT prophylaxis SCDs Discharge Planning Pending improvement and clearance from consultants. Anticipate transition to po uopn sc (amoxicillin or Keflex) to complete 10-14 days of abx (post op). Plan to DC on PO antibiotics per ID specialist appreciate recommendations. Has a wound vac in place . Case management consulted for DC plan. Kaylee Rooney MD Mar 11, 2017 10:09
--- NOTE | 2017-03-11 14:18 | HHI.GIFU ---
Subjective Remarks Resting in bed in no apparent distress. Denies nausea, vomiting, or diarrhea. Tolerating diet. (Vani Kuhn) Objective Vitals I&O Vital Signs Date Time Temp Pulse Resp B/P (MAP) Pulse Ox O2 Delivery O2 Flow Rate FiO2 03/11/17 12:43 98.6 83 18 139/73 (95) 96 03/11/17 08:19 98.5 76 17 152/86 (108) 94 03/11/17 04:56 98.0 84 18 127/71 (89) 95 03/11/17 00:54 98.4 93 18 139/82 (101) 96 03/10/17 20:15 98.0 100 18 143/85 (104) 98 03/10/17 18:24 97.7 92 17 140/67 (91) 91 03/10/17 16:15 98.2 79 20 128/59 (82) 96 Nasal Cannula 2 03/10/17 16:00 79 20 132/60 (84) 93 Nasal Cannula 2 03/10/17 15:45 84 20 133/96 (108) 93 Nasal Cannula 3 03/10/17 15:43 98.2 92 20 134/98 (110) 93 Nasal Cannula 3 03/10/17 14:39 98.4 65 16 148/79 (102) 97 I/O 03/10/17 03/10/17 03/10/17 03/11/17 03/11/17 03/11/17 07:00 15:00 23:00 07:00 15:00 23:00 Intake Total 250 ml 100 ml 200 ml Output Total 200 ml Balance 250 ml -100 ml 200 ml IV Total 250 ml 100 ml 200 ml Output Urine Total 200 ml # Voids 2 6 # Bowel Movements 0 Laboratory Date/Time Source Procedure Growth Status 03/04/17 16:30 Blood Peripheral Aerobic Blood Culture - Final NO GROWTH IN 5 DAYS Complete 03/04/17 16:30 Blood Peripheral Anaerobic Blood Culture - Final NO GROWTH IN 5 DAYS Complete 03/08/17 14:45 Wound Arm Fungal Smear - Final NO FUNGAL ELEMENTS SEEN. Resulted 03/08/17 14:45 Wound Arm Fungal Culture Pending Resulted Imaging Last Impressions Upper Extremity CT 03/05/17 0000 Signed Impressions: Service Date/Time: Sunday, March 05, 2017 15:56 - CONCLUSION: No fluid collections or acute bony abnormality of the hand. Jonatan Wheeler MD Liver Ultrasound 03/05/17 0000 Signed Impressions: Service Date/Time: Sunday, March 05, 2017 18:29 - CONCLUSION: 1. Hepatomegaly. 2. Gallbladder wall thickening and trace pericholecystic fluid suspected. No stones are seen. Negative Pierre's sign. Ty Pete MD Upper Extremity Ultrasound 03/04/17 0000 Signed Impressions: Service Date/Time: Saturday, March 04, 2017 16:45 - CONCLUSION: No venous thrombosis of the right upper extremity. Jonatan Wheeler MD Physical Exam HEENT: Normocephalic; atraumatic; no jaundice. NECK: Neck is supple CHEST: CTA CARDIAC: RRR ABDOMEN: Soft, nondistended, nontender; no hepatosplenomegaly; bowel sounds are present in all four quadrants. EXTREMITIES: No clubbing, cyanosis, or edema. SKIN: Right arm wound, with gauze in place. Wound vac. GENERATION TECHNOLOGIST: No focal deficits; alert and oriented times three. (Vani Kuhn) Assessment and Plan Plan ASSESSMENT - Elevated LFTs. Patient with history of illicit drug use. Hepatitis C positive. HCV RNA Genotype 1a, HCV RNA PCR [id number]. ISMAEL negative, ASMA negative. AMA pending. Alpha 1-Antitrypsin and Ceruloplasmin pending. - Nausea, reported dry heaves, every morning on waking. ?reflux. Improving - Weight loss, 20lb weight loss over summer. - Anemia, normocytic. HH stable. Admits intermittent black tarry stools and history of bleeding ulcer. HH 01/23.8 today - Right arm cellulitis per primary, GS following. Wound vac PLAN - Await AMA - Await Alpha 1-Antitrypsin, Ceruloplasmin - Followup with GI as outpatient for Hepatitis C treatment - Complete Hemoccult stool - Consider EGD/colonoscopy as outpatient - Monitor labs - Monitor HH, transfuse as needed - Supportive care. - Further recommendations to follow based on results of above Patient seen and examined by Dr. Larry and myself and this note is written on his behalf. (Vani Kuhn) Physician Comments Seen and examined, plan as above, to follow [facility] as out patient for HCV treatment. (Onesimo Larry MD) Vani Kuhn Mar 11, 2017 14:18 Onesimo Larry MD Mar 11, 2017 23:10
[2017-03-11] MEDS: DOCUSATE SODIUM 50 MG/SENNA 8.6 MG TAB PO SCH (21:00)
[2017-03-12] VITALS (8 sets, daily range): BP systolic 134–163; BP diastolic 69–84; PULSE 67–81; RESP 18; TEMP 98–98.5; O2SAT 94–98
[2017-03-12] MEDS: AMPICILLIN INJ 2,000 MG in SODIUM CHLORIDE 0.9% INJ 100 ML IV SCH ×6 (02:21→23:05)
[2017-03-12] MEDS: oxyCODONE/ACETAMINOPHEN 7.5 MG/325 MG TAB PO PRN ×6 (03:08→23:05)
[2017-03-12] MEDS: FAMOTIDINE 20 MG TAB PO SCH ×2 (08:48→23:06)
[2017-03-12] MEDS: SODIUM CHLORIDE 0.9% FLUSH 10 ML FLUSH IV FLUSH SCH ×2 (08:49→23:06)
[2017-03-12] MEDS: DOCUSATE SODIUM 50 MG/SENNA 8.6 MG TAB PO SCH ×2 (08:49→21:00)
--- NOTE | 2017-03-12 11:15 | HHI.PR ---
Subjective Remarks Says pain is fairly controlled in his arm. Can move fingers better, edema improved. No fever or chills. No n/v/d/c. Objective Vitals Vital Signs Date Time Temp Pulse Resp B/P (MAP) Pulse Ox O2 Delivery O2 Flow Rate FiO2 03/12/17 08:53 98.2 73 18 156/82 (106) 95 03/12/17 04:51 98.0 67 18 143/76 (98) 94 03/12/17 01:44 98.5 71 18 163/79 (107) 95 03/11/17 22:06 98.3 76 18 154/84 (107) 95 03/11/17 18:08 95 21 03/11/17 16:17 98.7 89 18 145/76 (99) 95 03/11/17 12:43 98.6 83 18 139/73 (95) 96 I/O 03/11/17 03/11/17 03/11/17 03/12/17 03/12/17 03/12/17 07:00 15:00 23:00 07:00 15:00 23:00 Intake Total 440 ml 100 ml 100 ml Output Total 100 ml Balance 440 ml 100 ml -100 ml 100 ml Intake Oral 240 ml IV Total 200 ml 100 ml 100 ml Drainage Total 100 ml # Voids 6 5 2 # Bowel Movements 1 Result Diagram: 03/10/17 0726 03/12/17 0651 Imaging Last Impressions Upper Extremity CT 03/05/17 0000 Signed Impressions: Service Date/Time: Sunday, March 05, 2017 15:56 - CONCLUSION: No fluid collections or acute bony abnormality of the hand. Jonatan Wheeler MD Liver Ultrasound 03/05/17 0000 Signed Impressions: Service Date/Time: Sunday, March 05, 2017 18:29 - CONCLUSION: 1. Hepatomegaly. 2. Gallbladder wall thickening and trace pericholecystic fluid suspected. No stones are seen. Negative Pierre's sign. Ty Pete MD Upper Extremity Ultrasound 03/04/17 0000 Signed Impressions: Service Date/Time: Saturday, March 04, 2017 16:45 - CONCLUSION: No venous thrombosis of the right upper extremity. Jonatan Wheeler MD Objective Remarks GENERAL: 42 yo male, in bed doesn't appear in distress. SKIN: Right arm wrapped in gauze. Wound vac in place. Neurovascular intact. CARDIOVASCULAR: Regular rate and rhythm. RESPIRATORY: No accessory muscle use. Clear to auscultation. Breath sounds equal bilaterally. GASTROINTESTINAL: Abdomen soft, non-tender, nondistended. Hepatic and splenic margins not palpable. MUSCULOSKELETAL: Extremities without clubbing, cyanosis, or edema. No obvious deformities. NEUROLOGICAL: Awake and alert. No obvious cranial nerve deficits. Motor grossly within normal limits. Five out of 5 muscle strength in the arms and legs. Normal speech. PSYCHIATRIC: Appropriate mood and affect; insight and judgment normal. A/P Assessment and Plan 42-year-old male with IV drug abuse presents with a three-day history of right upper extremity cellulitis Right upper extremity cellulitis/abscess -Ultrasound negative. CT scan of the arm showed extensive tensor compartment in elongated fluid collection concerning for intramuscular abscess. -Infectious disease consulted and ff. appreciate assistance. -Status post I&D of the right forearm on 03/08/2017. -S/P OR for another washout and wound VAC placement 03/11/17 -Blood culture so far negative. Wound cultures show group a beta strep. DC vanco. Anticipate transition to po uopn sc (amoxicillin or Keflex) to complete 10-14 days of abx (post op). Plan to DC on PO antibiotics per ID specialist appreciate recommendations. -Continue Percocet and ibuprofen as needed for pain. BYRON, resolved. -Due to dehydration. Continue with IV fluids. Transaminitis, improving. -Drug screen positive for barbiturates and cocaine. Positive for hepatitis C. Liver ultrasound shows thickening gallbladder wall and small amount of pericholecystic fluid. -Continue to monitor and trend LFTs. -Consult GI and appreciate recommendation. Per GI patient can have EGD and colonoscopy as outpatient. -Patient to follow-up with GI as outpatient. Hepatitis C -Pending genotype and quantitative RNA. Current IV drug user -Drug screen positive for barbiturates and cocaine. -Education given. Acid reflux -On Pepcid Anxiety -Most likely secondary to drug dependence. Vistaril when necessary. DVT prophylaxis SCDs Discharge Planning Pending improvement and clearance from consultants. Anticipate transition to po upon dc (amoxicillin or Keflex) to complete 10-14 days of abx (post op). Plan to DC on PO antibiotics per ID specialist appreciate recommendations. Has a wound vac in place . Case management consulted for DC plan. Kaylee Rooney MD Mar 12, 2017 11:15
--- NOTE | 2017-03-12 14:27 | PD.CAR.PN ---
CVT Progress Note Subjective/Hospital Course: Referral received Full consult to follow Patient to go to the OR tomorrow for I&D of the abscess 03/09/17 Status post I&D of the right arm and the debridement of the devitalized muscle of the dorsal surface of the forearm Patient feels better Cultures have been sent I'll take patient tomorrow for another washout and wound VAC placement 03/12/17 Patient status post the debridement irrigation and wound VAC placement Patient can be discharged from my point any time with a wound VAC and should follow up with plastic surgery in about 2 weeks to be evaluated for either advanced closure or secondary closure with skin graft Objective: Vital Signs Date Time Temp Pulse Resp B/P (MAP) Pulse Ox O2 Delivery O2 Flow Rate FiO2 03/12/17 12:58 98.3 81 18 134/69 (90) 96 03/12/17 12:00 95 03/12/17 08:53 98.2 73 18 156/82 (106) 95 03/12/17 04:51 98.0 67 18 143/76 (98) 94 03/12/17 01:44 98.5 71 18 163/79 (107) 95 03/11/17 22:06 98.3 76 18 154/84 (107) 95 03/11/17 18:08 95 21 03/11/17 16:17 98.7 89 18 145/76 (99) 95 Labs: Laboratory Tests Test 03/12/17 06:51 Creatinine 0.82 MG/DL (0.60-1.30) Estimat Glomerular Filtration Rate 104 ML/MIN (>89) Result Diagram: 03/10/17 0726 03/12/17 0651 Otoniel Oseguera MD Mar 12, 2017 14:27
[2017-03-13] MEDS: AMPICILLIN INJ 2,000 MG in SODIUM CHLORIDE 0.9% INJ 100 ML IV SCH ×6 (01:23→21:09)
[2017-03-13 01:25] VITALS: BP 162/81; PULSE 76; RESP 18; TEMP 98.2; O2SAT 95
[2017-03-13] MEDS: oxyCODONE/ACETAMINOPHEN 7.5 MG/325 MG TAB PO PRN ×5 (03:48→21:09)
[2017-03-13 05:39] VITALS: BP 164/88; PULSE 74; RESP 18; TEMP 98.1; O2SAT 96
[2017-03-13 08:50] VITALS: BP 149/90; PULSE 73; RESP 16; TEMP 97.5; O2SAT 99
[2017-03-13] MEDS: SODIUM CHLORIDE 0.9% FLUSH 10 ML FLUSH IV FLUSH SCH ×2 (09:00→21:00)
[2017-03-13] MEDS: DOCUSATE SODIUM 50 MG/SENNA 8.6 MG TAB PO SCH ×2 (09:00→21:00)
[2017-03-13] MEDS: FAMOTIDINE 20 MG TAB PO SCH ×2 (09:19→21:08)
--- NOTE | 2017-03-13 10:57 | HHI.PR ---
Subjective Remarks In bed. Says has some pain in his hand, able o move fingers. No swelling. No fever or chills overnight. Objective Vitals Vital Signs Date Time Temp Pulse Resp B/P (MAP) Pulse Ox O2 Delivery O2 Flow Rate FiO2 03/13/17 08:50 97.5 73 16 149/90 (109) 99 03/13/17 05:39 98.1 74 18 164/88 (113) 96 03/13/17 01:25 98.2 76 18 162/81 (108) 95 03/12/17 21:00 98.2 68 18 155/75 (101) 97 03/12/17 18:24 98 03/12/17 16:57 98.0 67 18 159/84 (109) 98 03/12/17 12:58 98.3 81 18 134/69 (90) 96 03/12/17 12:00 95 I/O 03/12/17 03/12/17 03/12/17 03/13/17 03/13/17 03/13/17 07:00 15:00 23:00 07:00 15:00 23:00 Intake Total 200 ml 200 ml 580 ml 200 ml Output Total 100 ml Balance 100 ml 200 ml 580 ml 200 ml Intake Oral 480 ml IV Total 200 ml 200 ml 100 ml 200 ml Drainage Total 100 ml # Voids 2 4 2 # Bowel Movements 1 Result Diagram: 03/10/17 0726 03/12/17 0651 Imaging Last Impressions Upper Extremity CT 03/05/17 0000 Signed Impressions: Service Date/Time: Sunday, March 05, 2017 15:56 - CONCLUSION: No fluid collections or acute bony abnormality of the hand. Jonatan Wheeler MD Liver Ultrasound 03/05/17 0000 Signed Impressions: Service Date/Time: Sunday, March 05, 2017 18:29 - CONCLUSION: 1. Hepatomegaly. 2. Gallbladder wall thickening and trace pericholecystic fluid suspected. No stones are seen. Negative Pierre's sign. Ty Pete MD Upper Extremity Ultrasound 03/04/17 0000 Signed Impressions: Service Date/Time: Saturday, March 04, 2017 16:45 - CONCLUSION: No venous thrombosis of the right upper extremity. Jonatan Wheeler MD Objective Remarks GENERAL: 42 yo male, in bed doesn't appear in distress. SKIN: Right arm wrapped in gauze. Wound vac in place. Neurovascular intact. CARDIOVASCULAR: Regular rate and rhythm. RESPIRATORY: No accessory muscle use. Clear to auscultation. Breath sounds equal bilaterally. GASTROINTESTINAL: Abdomen soft, non-tender, nondistended. Hepatic and splenic margins not palpable. MUSCULOSKELETAL: Extremities without clubbing, cyanosis, or edema. No obvious deformities. NEUROLOGICAL: Awake and alert. No obvious cranial nerve deficits. Motor grossly within normal limits. Five out of 5 muscle strength in the arms and legs. Normal speech. PSYCHIATRIC: Appropriate mood and affect; insight and judgment normal. A/P Assessment and Plan 42-year-old male with IV drug abuse presents with a three-day history of right upper extremity cellulitis Right upper extremity cellulitis/abscess -Ultrasound negative. CT scan of the arm showed extensive tensor compartment in elongated fluid collection concerning for intramuscular abscess. -Infectious disease consulted and ff. appreciate assistance. -Status post I&D of the right forearm on 03/08/2017. -S/P OR for another washout and wound VAC placement 03/11/17 -Blood culture so far negative. Wound cultures show group a beta strep. DC vanco. Anticipate transition to po uopn sc (amoxicillin or Keflex) to complete 10-14 days of abx (post op). Plan to DC on PO antibiotics per ID specialist appreciate recommendations. -Continue Percocet and ibuprofen as needed for pain. BYRON, resolved. -Due to dehydration. Continue with IV fluids. Transaminitis, improving. -Drug screen positive for barbiturates and cocaine. Positive for hepatitis C. Liver ultrasound shows thickening gallbladder wall and small amount of pericholecystic fluid. -Continue to monitor and trend LFTs. -Consult GI and appreciate recommendation. Per GI patient can have EGD and colonoscopy as outpatient. -Patient to follow-up with GI as outpatient. Hepatitis C -Pending genotype and quantitative RNA. Current IV drug user -Drug screen positive for barbiturates and cocaine. -Education given. Acid reflux -On Pepcid Anxiety -Most likely secondary to drug dependence. Vistaril when necessary. DVT prophylaxis SCDs Discharge Planning Pending improvement and clearance from consultants. Anticipate transition to po upon dc (amoxicillin or Keflex) to complete 10-14 days of abx (post op). Plan to DC on PO antibiotics per ID specialist appreciate recommendations. Has a wound vac in place . Case management consulted for DC plan. Kaylee Rooney MD Mar 13, 2017 10:57
[2017-03-13 12:22] VITALS: BP 149/81; PULSE 90; RESP 16; TEMP 97.7; O2SAT 96
[2017-03-13 16:55] VITALS: BP 159/82; PULSE 82; RESP 16; TEMP 98.3; O2SAT 96
[2017-03-13 20:00] VITALS: BP 148/80; PULSE 75; RESP 20; TEMP 97.7; O2SAT 96
[2017-03-14] VITALS: BP 155/73; PULSE 76; RESP 20; TEMP 97.4; O2SAT 95
[2017-03-14] MEDS: AMPICILLIN INJ 2,000 MG in SODIUM CHLORIDE 0.9% INJ 100 ML IV SCH (02:00)
[2017-03-14] MEDS: oxyCODONE/ACETAMINOPHEN 7.5 MG/325 MG TAB PO PRN ×3 (02:10→15:00)
[2017-03-14 04:00] VITALS: BP 168/91; PULSE 65; RESP 20; TEMP 98.1; O2SAT 96
[2017-03-14] MEDS ORDERED: OXYC1TAB63 PO (08:09)
[2017-03-14] MEDS ORDERED: DOCU1CAP39 PO (08:09)
--- NOTE | 2017-03-14 08:09 | HHI.DS ---
Discharge Summary Admission Date Mar 04, 2017 at 18:30 Discharge Date: Mar 14, 2017 Admitting Diagnosis cellulitis, IV drug use (1) Cellulitis ICD Code: L03.90 - Cellulitis, unspecified Status: Acute (2) Sepsis ICD Code: A41.9 - Sepsis, unspecified organism Status: Acute (3) IV drug user ICD Code: F19.90 - Other psychoactive substance use, unspecified, uncomplicated Status: Acute Procedures 1. Debridement of the right arm, washout and placement of a wound VAC. on by Dr Oseguera surgeon 2. Incision, drainage and evacuation of large abscess of the volar surface of the right arm with debridement on 03/09/[address] Oseguera surgeon Brief History - From Admission 42-year-old male with a past medical history significant for IV drug abuse presents to the emergency department with a three-day history of right upper extremity pain and swelling. He endorses subjective fever/chills. He also complains of nausea and diarrhea for 3 days. His lab work was significant for a white cell count of 19.8 with a significant left shift. He endorses pain that radiates to his hand and has difficulty making a fist. No areas of fluctuance noted. CBC/BMP: 03/10/17 0726 03/12/17 0651 Significant Findings Laboratory Tests Test 03/12/17 06:51 Imaging Last Impressions Upper Extremity CT 03/05/17 0000 Signed Impressions: Service Date/Time: Sunday, March 05, 2017 15:56 - CONCLUSION: No fluid collections or acute bony abnormality of the hand. Jonatan Wheeler MD Liver Ultrasound 03/05/17 0000 Signed Impressions: Service Date/Time: Sunday, March 05, 2017 18:29 - CONCLUSION: 1. Hepatomegaly. 2. Gallbladder wall thickening and trace pericholecystic fluid suspected. No stones are seen. Negative Pierre's sign. Ty Pete MD Upper Extremity Ultrasound 03/04/17 0000 Signed Impressions: Service Date/Time: Saturday, March 04, 2017 16:45 - CONCLUSION: No venous thrombosis of the right upper extremity. Jonatan Wheeler MD PE at Discharge GENERAL: 42 yo male, in bed doesn't appear in distress. SKIN: Right arm wrapped in gauze. Wound vac in place. Neurovascular intact. CARDIOVASCULAR: Regular rate and rhythm. RESPIRATORY: No accessory muscle use. Clear to auscultation. Breath sounds equal bilaterally. GASTROINTESTINAL: Abdomen soft, non-tender, nondistended. Hepatic and splenic margins not palpable. MUSCULOSKELETAL: Extremities without clubbing, cyanosis, or edema. No obvious deformities. NEUROLOGICAL: Awake and alert. No obvious cranial nerve deficits. Motor grossly within normal limits. Five out of 5 muscle strength in the arms and legs. Normal speech. PSYCHIATRIC: Appropriate mood and affect; insight and judgment normal. Hospital Course 42-year-old male with IV drug abuse presents with a three-day history of right upper extremity cellulitis Right upper extremity cellulitis/abscess -Ultrasound negative. CT scan of the arm showed extensive tensor compartment in elongated fluid collection concerning for intramuscular abscess. -Infectious disease consulted and ff. appreciate assistance. -Status post I&D of the right forearm on 03/08/2017. -S/P OR for another washout and wound VAC placement 03/11/17 -Blood culture so far negative. Wound cultures show group a beta strep. DC vanco. Anticipate transition to po uopn sc (amoxicillin or Keflex) to complete 10-14 days of abx (post op). Plan to DC on PO antibiotics per ID specialist appreciate recommendations. Discussed with Dr Sommers ID appreciate recommendations recommends amoxicillin 500 mg po tid for total of 14 days since surgery. -Continue Percocet and ibuprofen as needed for pain. BYRON, resolved. -Due to dehydration. Continue with IV fluids. Transaminitis, improving. -Drug screen positive for barbiturates and cocaine. Positive for hepatitis C. Liver ultrasound shows thickening gallbladder wall and small amount of pericholecystic fluid. -Continue to monitor and trend LFTs. -Consult GI and appreciate recommendation. Per GI patient can have EGD and colonoscopy as outpatient. -Patient to follow-up with GI as outpatient. Hepatitis C -Pending genotype and quantitative RNA. Current IV drug user -Drug screen positive for barbiturates and cocaine. -Education given. Acid reflux -On Pepcid Anxiety -Most likely secondary to drug dependence. Vistaril when necessary. DVT prophylaxis SCDs Discharge Planning Pending improvement and clearance from consultants. Plan to DC on PO antibiotics per ID specialist appreciate recommendations. Discussed with Dr Sommers ID appreciate recommendations recommends amoxicillin 500 mg po tid for total of 14 days since surgery. Has a wound vac in place . Case management consulted for DC plan. Discharge when arrnagements dome. Wound care to benjamin bauer give recommendatiosn for wound cre at DC as well. Patient to follow up as OP with PCP , Dr Oseguera and also with plastic surgeon. Wound care instructions: Please cleanse wound with wound cleanser or normal saline and pat dry. Apply adaptic (oil emulsion gauze) over exposed tendon and facia.Window pane wound with VAC drape to protect surrounding skin Apply VAC foam to wound bed cover with VAC drape. Cut hole to expose hole for Sensi trac pad placement. Cover all exposed VAC foam with VAC drape to seal dressing. Change dressing Monday, and Monday, with VAC settings at 125 mm/hg continuous low suction. Pt Condition on Discharge: Stable Discharge Disposition: Disch w/ Home Health Serv Discharge Time: > 30 minutes Discharge Instructions DIET: Follow Instructions for: As Tolerated, No Restrictions Activities you can perform: Regular-No Restrictions Follow up Referrals: Gastroenterology - 2 Weeks @ [facility] PCP Follow-up - 2-3 Days Plastic Surgery - 2 Weeks Surgical - 1 Week with Otoniel Oseguera MD New Medications: Amoxicillin (Amoxicillin) 500 Mg Cap 500 MG PO TID for Infection, #30 CAP 0 Refills Docusate Sodium (Dok) 100 Mg Cap 100 MG PO BID for Constipation, #60 CAP Lactobacillus Acidophilus (Lactinex) 1 Chew 1 TAB CHEW DAILY for Nutritional Supplement, #30 TAB 0 Refills Oxycodone-Acetaminophen (Oxycodone-Acetaminophen) 5-325 mg Tab 1-2 TAB PO Q4H PRN for PAIN, #30 TAB 0 Refills Kaylee Rooney MD Mar 14, 2017 08:09
[2017-03-14 08:13] VITALS: BP 157/90; PULSE 75; RESP 18; TEMP 98.9; O2SAT 98
[2017-03-14] MEDS ORDERED: AMOX500C PO (08:23)
[2017-03-14] MEDS ORDERED: LACTCHW3 CHEW (08:24)
--- NOTE | 2017-03-14 08:25 | HHI.FF ---
Face to Face Verification Diagnosis: (1) Cellulitis (2) Sepsis (3) IV drug user Home Health Nursing Order: Medical education Signs/symptoms of disease process Medication education-adverse effect Wound care and dressing changes Nursing assessment with vital signs Instructions: Please cleanse wound with wound cleanser or normal saline and pat dry. Apply adaptic (oil emulsion gauze) over exposed tendon and facia.Window pane wound with VAC drape to protect surrounding skin Apply VAC foam to wound bed cover with VAC drape. Cut hole to expose hole for Sensi trac pad placement. Cover all exposed VAC foam with VAC drape to seal dressing. Change dressing Monday, and Monday, with VAC settings at 125 mm/hg continuous low suction. I have seen patient Mike Jones on 03/14/17. My clinical findings support the need for the requested home health care services because: Ltd mobility - disease progression I certify that my clinical findings support that this patient is homebound because: Post-op weakness Kaylee Rooney MD Mar 14, 2017 08:25 Abraham Linton Mar 14, 2017 14:00
--- NOTE | 2017-03-14 11:11 | HHI.PR ---
Subjective Remarks In the bed, says swelling in his left hand is imprpving and he can move more his fingers. No fever ro chills overnight. Pain is fairly controlled by meds. No n/v/d/c/ Objective Vitals Vital Signs Date Time Temp Pulse Resp B/P (MAP) Pulse Ox O2 Delivery O2 Flow Rate FiO2 03/14/17 08:13 98.9 75 18 157/90 (112) 98 03/14/17 04:00 98.1 65 20 168/91 (116) 96 03/14/17 00:00 97.4 76 20 155/73 (100) 95 03/13/17 20:00 97.7 75 20 148/80 (102) 96 03/13/17 16:55 98.3 82 16 159/82 (107) 96 03/13/17 12:22 97.7 90 16 149/81 (103) 96 I/O 03/13/17 03/13/17 03/13/17 03/14/17 03/14/17 03/14/17 07:00 15:00 23:00 07:00 15:00 23:00 Intake Total 200 ml 640 ml Balance 200 ml 640 ml Intake Oral 640 ml IV Total 200 ml # Voids 2 6 1 # Bowel Movements 1 0 Result Diagram: 03/10/17 0726 03/12/17 0651 Imaging Last Impressions Upper Extremity CT 03/05/17 0000 Signed Impressions: Service Date/Time: Sunday, March 05, 2017 15:56 - CONCLUSION: No fluid collections or acute bony abnormality of the hand. Jonatan Wheeler MD Liver Ultrasound 03/05/17 0000 Signed Impressions: Service Date/Time: Sunday, March 05, 2017 18:29 - CONCLUSION: 1. Hepatomegaly. 2. Gallbladder wall thickening and trace pericholecystic fluid suspected. No stones are seen. Negative Pierre's sign. Ty Pete MD Upper Extremity Ultrasound 03/04/17 0000 Signed Impressions: Service Date/Time: Saturday, March 04, 2017 16:45 - CONCLUSION: No venous thrombosis of the right upper extremity. Jonatan Wheeler MD Objective Remarks GENERAL: 42 yo male, in bed doesn't appear in distress. SKIN: Right arm wrapped in gauze. Wound vac in place. Neurovascular intact. CARDIOVASCULAR: Regular rate and rhythm. RESPIRATORY: No accessory muscle use. Clear to auscultation. Breath sounds equal bilaterally. GASTROINTESTINAL: Abdomen soft, non-tender, nondistended. Hepatic and splenic margins not palpable. MUSCULOSKELETAL: Extremities without clubbing, cyanosis, or edema. No obvious deformities. NEUROLOGICAL: Awake and alert. No obvious cranial nerve deficits. Motor grossly within normal limits. Five out of 5 muscle strength in the arms and legs. Normal speech. PSYCHIATRIC: Appropriate mood and affect; insight and judgment normal. A/P Assessment and Plan 42-year-old male with IV drug abuse presents with a three-day history of right upper extremity cellulitis Right upper extremity cellulitis/abscess -Ultrasound negative. CT scan of the arm showed extensive tensor compartment in elongated fluid collection concerning for intramuscular abscess. -Infectious disease consulted and ff. appreciate assistance. -Status post I&D of the right forearm on 03/08/2017. -S/P OR for another washout and wound VAC placement 03/11/17 -Blood culture so far negative. Wound cultures show group a beta strep. DC vanco. Anticipate transition to po uopn sc (amoxicillin or Keflex) to complete 10-14 days of abx (post op). Plan to DC on PO antibiotics per ID specialist appreciate recommendations. Discussed with Dr Matthieu ZAVALA appreciate recommendations recommends amoxicillin 500 mg po tid for total of 14 days since surgery. -Continue Percocet and ibuprofen as needed for pain. BYRON, resolved. -Due to dehydration. Continue with IV fluids. Transaminitis, improving. -Drug screen positive for barbiturates and cocaine. Positive for hepatitis C. Liver ultrasound shows thickening gallbladder wall and small amount of pericholecystic fluid. -Continue to monitor and trend LFTs. -Consult GI and appreciate recommendation. Per GI patient can have EGD and colonoscopy as outpatient. -Patient to follow-up with GI as outpatient. Hepatitis C -Pending genotype and quantitative RNA. Current IV drug user -Drug screen positive for barbiturates and cocaine. -Education given. Acid reflux -On Pepcid Anxiety -Most likely secondary to drug dependence. Vistaril when necessary. DVT prophylaxis SCDs Discharge Planning Pending improvement and clearance from consultants. Plan to DC on PO antibiotics per ID specialist appreciate recommendations. Discussed with Dr Matthieu ZAVALA appreciate recommendations recommends amoxicillin 500 mg po tid for total of 14 days since surgery. Has a wound vac in place . Case management consulted for DC plan. Discharge when arrnagements dome. Wound care to evaulate cristi bauer give recommendatiosn for wound cre at DC as well. Cristi busby follwo up as OP with Pcp , Dr Oseguera and also with plastic surgeon. Kaylee Rooney MD Mar 14, 2017 11:11
[2017-03-14 12:00] VITALS: BP 140/85; PULSE 74; RESP 18; TEMP 97.6; O2SAT 96
--- NOTE | 2017-03-14 12:39 | HHI.GIFU ---
Subjective Remarks Resting in bed. No complaints. No n/v/abdominal pain. Pain in RUE improving. States he may be going home today. (Yaneth Desir) Objective Vitals I&O Vital Signs Date Time Temp Pulse Resp B/P (MAP) Pulse Ox O2 Delivery O2 Flow Rate FiO2 03/14/17 08:13 98.9 75 18 157/90 (112) 98 03/14/17 04:00 98.1 65 20 168/91 (116) 96 03/14/17 00:00 97.4 76 20 155/73 (100) 95 03/13/17 20:00 97.7 75 20 148/80 (102) 96 03/13/17 16:55 98.3 82 16 159/82 (107) 96 I/O 03/13/17 03/13/17 03/13/17 03/14/17 03/14/17 03/14/17 07:00 15:00 23:00 07:00 15:00 23:00 Intake Total 200 ml 640 ml Balance 200 ml 640 ml Intake Oral 640 ml IV Total 200 ml # Voids 2 6 1 # Bowel Movements 1 0 Laboratory Date/Time Source Procedure Growth Status 03/04/17 16:30 Blood Peripheral Aerobic Blood Culture - Final NO GROWTH IN 5 DAYS Complete 03/04/17 16:30 Blood Peripheral Anaerobic Blood Culture - Final NO GROWTH IN 5 DAYS Complete 03/08/17 14:45 Wound Arm Fungal Smear - Final NO FUNGAL ELEMENTS SEEN. Resulted 03/08/17 14:45 Wound Arm Fungal Culture Pending Resulted Imaging Last Impressions Upper Extremity CT 03/05/17 0000 Signed Impressions: Service Date/Time: Sunday, March 05, 2017 15:56 - CONCLUSION: No fluid collections or acute bony abnormality of the hand. Jonatan Wheeler MD Liver Ultrasound 03/05/17 0000 Signed Impressions: Service Date/Time: Sunday, March 05, 2017 18:29 - CONCLUSION: 1. Hepatomegaly. 2. Gallbladder wall thickening and trace pericholecystic fluid suspected. No stones are seen. Negative Pierre's sign. Ty Pete MD Upper Extremity Ultrasound 03/04/17 0000 Signed Impressions: Service Date/Time: Saturday, March 04, 2017 16:45 - CONCLUSION: No venous thrombosis of the right upper extremity. Jonatan Wheeler MD Physical Exam HEENT: Normocephalic; atraumatic CHEST: CTA CARDIAC: RRR ABDOMEN: Soft, nondistended, nontender; no hepatosplenomegaly; bowel sounds are present in all four quadrants. EXTREMITIES: No clubbing, cyanosis, or edema. 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 (Yaneth Desir) Assessment and Plan Plan ASSESSMENT - Elevated LFTs. Patient with history of illicit drug use. Hepatitis C positive. HCV RNA Genotype 1a, HCV RNA PCR [id number]. ISMAEL negative, ASMA negative. AMA pending. Alpha 1-Antitrypsin 265 Ceruloplasmin 26. AFP 2.3. LFTs improving. Likely R/T infection/abx on underlying HCV. Last LFT on 03/07 were much improved. - Nausea, reported dry heaves, every morning on waking. RESOLVED. - Weight loss, 20lb weight loss over summer. - Anemia, normocytic. HH stable. - Right arm cellulitis per primary, GS following. Wound vac PLAN - BABS - Await AMA - Await Ceruloplasmin - Monitor labs - ETOH Cessation - Drug Cessation - FU BALWINDER as outpatient - Further recommendations to follow based on results of above - Patient seen and examined by Dr. Olivas and myself and this note is written on his behalf. (Yaneth Desir) Physician Comments Patient seen and examined Agree with above Continue with current supportive care Monitor labs Follow-up with GI post discharge (Jonathan Olivas MD) Yaneth Desir Mar 14, 2017 12:39 Jonathan Olivas MD Mar 14, 2017 19:06
[2017-03-14] MEDS ORDERED: AMOXICILLIN (TRIHYDRATE) 500 MG CAP PO SCH (13:00)
--- NOTE | 2017-03-14 13:33 | PD.WCN.NOT ---
Wound Consult Description: Received consult for VAC management of L hand. Wound VAC is on R arm Communicated with: EMILY De Dios [address] north and call placed to Doctor Toribio for orders Recommendation: Please cleanse wound with wound cleanser or normal saline and pat dry. Apply adaptic (oil emulsion gauze) over exposed tendon and facia.Window pane wound with VAC drape to protect surrounding skin Apply VAC foam to wound bed cover with VAC drape. Cut hole to expose hole for Sensi trac pad placement. Cover all exposed VAC foam with VAC drape to seal dressing. Change dressing Monday, and Monday, with VAC settings at 125 mm/hg continuous low suction. Neg Pressure Wound Therapy Wound Location Wound Location: R forearm Wound Description Length: 20cm Width: 6cm Depth: 1.1cm Wound bed appearance: Wound bed presents with ~40% muscle tissue, 20% facia, ~20% tendon, ~10% adipose and ~10% red granulation tissue. Wound has minimal sero-sanguinous drainage that is without odor. Periwound appearance: Unremarkable Settings Suction: 125 mmHg, Continuous Intensity: Low Other Information: Windowpaned, Mushroomed Foam type: Black Number of pieces: 3 Additonal Information wound VAC dressing applied around 1300. Removed wound VAC dressing in place to reveal wound. Wound measurements and description noted above. Patient is s/p fasciotomy with wash out on 03/12 with wound VAC placement. Cleansed wound with wound cleanser and pat dry. Skin prep was applied to periwound before window paning wound with VAC drape. Applied 3 pieces of granufoam in wound bed. Secured granufoam with VAc drape. Covered all exposed granufoam with VAC drape. Cut hole in VAC drape to expose foam. Mushroom cap of Black granufoam was then applied over hole with Sensi trac pad attached. Wound VAC is suctioning at 125 mm/hg continuous low suction without leaks.Next wound VAC dressing change is due on 03/16/2017. Jazlyn Guzman [facility] Mar 14, 2017 13:33
[2017-03-14 16:00] VITALS: BP 142/90; PULSE 78; RESP 20; TEMP 98.1; O2SAT 97
[2017-03-14 23:53] LABS: MITOCHONDRIAL ABS LESS THAN 20.0 U (<=20.0)
== END 2017-03-14 17:44 | disposition home health service (06) | DRG 854 ==
LOC: NEPE 14:28 → NEDA 18:30 → N05A 20:58
PROVIDERS: ADMIT Hospitalist; ATTEND Hospitalist
PROC: 0J9G0ZZ Drainage of Right Lower Arm Subcutaneous Tissue and Fascia, Open Approach (ICD-10-PCS; 2017-03-08)
PROC: 0KB90ZZ Excision of Right Lower Arm and Wrist Muscle, Open Approach (ICD-10-PCS; principal; 2017-03-08 13:00)
PROC: 0KD90ZZ Extraction of Right Lower Arm and Wrist Muscle, Open Approach (ICD-10-PCS; 2017-03-10)
DX: A41.9 Sepsis, unspecified organism (principal); N17.9 Acute kidney failure, unspecified; I95.9 Hypotension, unspecified; K52.1 Toxic gastroenteritis and colitis; F11.20 Opioid dependence, uncomplicated; L03.113 Cellulitis of right upper limb; L02.413 Cutaneous abscess of right upper limb; R65.20 Severe sepsis without septic shock; R00.0 Tachycardia, unspecified; F17.210 Nicotine dependence, cigarettes, uncomplicated; F10.10 Alcohol abuse, uncomplicated; T36.95XA Adverse effect of unspecified systemic antibiotic, initial encounter; K21.9 Gastro-esophageal reflux disease without esophagitis; R63.4 Abnormal weight loss; E86.0 Dehydration; B19.20 Unspecified viral hepatitis C without hepatic coma; F41.9 Anxiety disorder, unspecified; D64.9 Anemia, unspecified; B95.0 Streptococcus, group A, as the cause of diseases classified elsewhere
CPT/HCPCS: 73201; 76705; 76937; 80048; 80053; 80074; 80076; 80202; 80307; 82103; 82105; 82390; 82565; 83520; 83605; 85025; 85027; 86038; 86255; 87015; 87040; 87070; 87102; 87116; 87205; 87206; 87522; 87902; 93971; 96361; 96374; J0290; J1100; J1170; J1885; J2250; J2270; J2405; J2543; J2710; J3010; J3370; J7030; J7050; J7120; Q9967

== ENCOUNTER 2017-06-21 12:42 | Inpatient (IN) | payer OTHER ==
[~2017-06-21] VITALS: Ht 167.6 cm; Wt 73.2 kg
[~2017-06-21 12:42] MED LIST: AMOX500C PO; DOCU1CAP39 PO; LACTCHW3 CHEW; NEOMYCIN/POLYMYXIN 1 ML G.U. IRRIGANT IRRIGATION ONE; OXYC1TAB63 PO
[2017-06-21 13:01] VITALS: BP 128/78; PULSE 91; RESP 18; TEMP 98.2; O2SAT 99
[2017-06-21] MEDS ORDERED: MINO100 PO (13:16)
[2017-06-21] MEDS ORDERED: IBUP-232 PO (13:16)
[2017-06-21] MEDS ORDERED: SULF1TAB23 PO (13:16)
[2017-06-21] MEDS ORDERED: CALC1CHW PO (13:16)
[2017-06-21] MEDS ORDERED: CEFT1INJ IM (13:16)
[2017-06-21 13:22] VITALS: BP 121/59; PULSE 84; RESP 17; TEMP 98.2; O2SAT 99
[2017-06-21] MEDS ORDERED: SODIUM CHLOR 0.9% 1000 ML INJ 1,000 ML IV SCH (13:29)
[2017-06-21] MEDS ORDERED: SODIUM CHLORIDE 0.9% FLUSH 10 ML FLUSH IV FLUSH PRN ×2 (13:30→15:30)
[2017-06-21] MEDS ORDERED: KETOROLAC TROMETHAMINE 30 MG/ML (IVP) VIAL IVP ONE (13:30)
--- NOTE | 2017-06-21 13:35 | PD ---
HPI Chief Complaint: Skin Problem Time Seen by Provider: 13:19 Travel History International Travel<30 days: No Contact w/Intl Traveler<30days: No Traveled to known affect area: No History of Present Illness HPI 42-year-old male presents to the emergency department under law enforcement custody with complaint of left hand and forearm swelling, pain, redness since Monday. He last injected heroin into his arm at the end of last month. He says he went to group home on June 02 and when he went to group home he was on antibiotics. He continue the antibiotics and his symptoms subsided. And then on Monday his symptoms returned again. He has been treated with Bactrim and Rocephin. Last night he had incision and drainage done to the dorsal aspect of his left hand with iodoform packing that is intact. He denies fever, vomiting. Reports paresthesias to his left thumb. Reports decreased range of motion of his hand. Rates pain 8/10. Describes as a pressure, throbbing sensation. Pain is constant. No known relieving factors. No known allergies. Denies significant past medical history. Has no other medical complaints. No other modifying factors or associated signs and symptoms. PFSH Past Medical History Cardiovascular Problems: No Diminished Hearing: No GERD: Yes Genitourinary: No Musculoskeletal: No Neurologic: No Reproductive: No Respiratory: No Tetanus Vaccination: < 5 Years Influenza Vaccination: No ?: Not Past Surgical History Oral Surgery: Yes (WISDOM TEETH) Tonsillectomy: Yes Other Surgery: Yes Social History Alcohol Use: No Tobacco Use: No Substance Use: Yes Allergies-Medications (Allergen,Severity, Reaction): Coded Allergies: No Known Allergies (Unverified Allergy, Unknown, 06/21/17) Reported Meds & Prescriptions Reported Meds & Active Scripts Active Lactinex (Lactobacillus Acidophilus) 1 Chew 1 Tab CHEW DAILY Amoxicillin 500 Mg Cap 500 Mg PO TID Dok (Docusate Sodium) 100 Mg Cap 100 Mg PO BID Oxycodone-Acetaminophen 5-325 mg Tab 1-2 Tab PO Q4H PRN Reported Sulfamethoxazole-Trimethoprim 800-160 Mg Tab 1 Tab PO BID Minocycline (Minocycline HCl) 100 Mg Cap 100 Mg PO BID Ibuprofen 600 Mg Tab 600 Mg PO BID Ceftriaxone Inj (Ceftriaxone Sodium) 1 Gram Inj 1 Gm IM Q24H Antacid Calcium Regular Strength (Calcium Carbonate) 500 Mg Chew 500 Mg PO BID Review of Systems Except as stated in HPI: all other systems reviewed are Neg Physical Exam Narrative GENERAL: Well-nourished, well-developed male patient, in no acute distress; afebrile, nontoxic-appearing SKIN: Left hand and forearm with erythema, edema; left thumb with loss of sensation to the lateral aspect; all other fingers and medial aspect of thumb with sensory intact; fingers are pink; there is some white blanching noted to the left thumb with movement; 2+ radial pulse; patient unable to move the fingers at the MCP joints. HEAD: Atraumatic. Normocephalic. EYES: Pupils equal and round. No scleral icterus. No injection or drainage. ENT: Mucosa pink and moist. Airway patent. NECK: Trachea midline. CARDIOVASCULAR: Regular rate. RESPIRATORY: No accessory muscle use. GASTROINTESTINAL: Flat. MUSCULOSKELETAL: No obvious deformities. No clubbing. No cyanosis. No edema. NEUROLOGICAL: Awake and alert. Oriented 3. No obvious cranial nerve deficits. Motor grossly within normal limits. Normal speech. PSYCHIATRIC: Appropriate mood and affect; insight and judgment normal. Data Data Last Documented VS Vital Signs Date Time Temp Pulse Resp B/P (MAP) Pulse Ox O2 Delivery O2 Flow Rate FiO2 06/21/17 13:22 98.2 84 17 121/59 (79) 99 Room Air Orders Orders Basic Metabolic Panel (Bmp) (06/21/17 13:29) Complete Blood Count With Diff (06/21/17 13:29) Prothrombin Time / Inr (Pt) (06/21/17 13:29) Act Partial Throm Time (Ptt) (06/21/17 13:29) Sodium Chlor 0.9% 1000 Ml Inj (Ns 1000 M (06/21/17 13:29) Sodium Chloride 0.9% Flush (Ns Flush) (06/21/17 13:30) Ketorolac Inj (Toradol Inj) (06/21/17 13:30) Hand, Complete (Amj5evm) (06/21/17 13:29) Forearm (2vws) (06/21/17 13:29) Blood Culture (06/21/17 13:44) Vancomycin Inj (Vancomycin Inj) (06/21/17 14:00) Piperacil-Tazo 3.375 Gm Premix (Zosyn 3. (06/21/17 14:00) Diet Npo (06/21/17 Dinner) Consult Hand Surgery (06/21/17 ) (Hub Use Only)Inp Phy Cons/Ref (06/21/17 ) Labs Laboratory Tests Test 06/21/17 13:44 White Blood Count 10.2 TH/MM3 Red Blood Count 4.31 MIL/MM3 Hemoglobin 12.8 GM/DL Hematocrit 37.4 % Mean Corpuscular Volume 86.9 FL Mean Corpuscular Hemoglobin 29.7 PG Mean Corpuscular Hemoglobin Concent 34.2 % Red Cell Distribution Width 13.3 % Platelet Count 212 TH/MM3 Mean Platelet Volume 7.3 FL Neutrophils (%) (Auto) 74.3 % Lymphocytes (%) (Auto) 14.1 % Monocytes (%) (Auto) 8.9 % Eosinophils (%) (Auto) 2.2 % Basophils (%) (Auto) 0.5 % Neutrophils # (Auto) 7.6 TH/MM3 Lymphocytes # (Auto) 1.4 TH/MM3 Monocytes # (Auto) 0.9 TH/MM3 Eosinophils # (Auto) 0.2 TH/MM3 Basophils # (Auto) 0.1 TH/MM3 CBC Comment DIFF FINAL Differential Comment Prothrombin Time 10.1 SEC Prothromb Time International Ratio 1.0 RATIO Activated Partial Thromboplast Time 26.0 SEC Blood Urea Nitrogen 8 MG/DL Creatinine 0.94 MG/DL Random Glucose 96 MG/DL Calcium Level 8.5 MG/DL Sodium Level 141 MEQ/L Potassium Level 4.2 MEQ/L Chloride Level 107 MEQ/L Carbon Dioxide Level 28.3 MEQ/L Anion Gap 6 MEQ/L Estimat Glomerular Filtration Rate 88 ML/MIN [facility] Medical Decision Making Medical Screen Exam Complete: Yes Emergency Medical Condition: Yes Medical Record Reviewed: Yes Differential Diagnosis Cellulitis, abscess, sepsis, compartment syndrome Narrative Course 42-year-old male with extensive cellulitis to the left hand and forearm. Patient is afebrile and nontoxic-appearing. Denies fever, vomiting. History of IV drug use. Has been treated in group home with Rocephin, Bactrim, and I&D last night. CBC, BMP, coags, blood cultures, normal saline bolus, Vanco 1 g, Zosyn, Toradol ordered. 1410: I spoke wit Dr. Mendoza and he will come to see the patient and recommended the patient to be n.p.o. status.. NPO ordered. 1421: Left hand x-ray concluded: CONCLUSION: 1. Prominent dorsal soft tissue swelling. 2. Osseous structures the hand are radiographically intact. Left forearm x-ray concludes: osseous structures are grossly intact. No radiopaque foreign bodies. 1500: CBC, coags, BMP unremarkable. Call placed to [facility] for patient admission. 1520: I spoke with ZACKERY Butcher and report was given for patient admission. Physician Communication Physician Communication ZACKERY Benites Diagnosis Primary Impression: Left arm cellulitis Admitting Information Admitting Physician Requests: Admit Taylor Mayberry Jun 21, 2017 13:35
[2017-06-21 13:54] LABS: AUTOMATED NEUTROPHIL # 7.6 TH/MM3 (1.8-7.7); BASOPHIL # 0.1 TH/MM3 (0-0.2); BASOPHIL % 0.5 % (0.0-2.0); EOSINOPHIL # 0.2 TH/MM3 (0-0.4); EOSINOPHIL % 2.2 % (0.0-4.0); HEMATOCRIT 37.4 % (39.0-51.0); HEMOGLOBIN 12.8 GM/DL (13.0-17.0); LYMPH % 14.1 % (9.0-44.0); LYMPHOCYTE # 1.4 TH/MM3 (1.0-4.8); MEAN CELL VOLUME 86.9 FL (80.0-100.0); MEAN CORPUSCULAR HEMOGLOBIN 29.7 PG (27.0-34.0); MEAN CORPUSCULAR HGB CONC 34.2 % (32.0-36.0); MEAN PLATELET VOLUME 7.3 FL (7.0-11.0); MONO % 8.9 % (0.0-8.0); MONOCYTE # 0.9 TH/MM3 (0-0.9); NEUT % 74.3 % (16.0-70.0); PLATELET COUNT 212 TH/MM3 (150-450); RED BLOOD COUNT 4.31 MIL/MM3 (4.50-5.90); RED CELL DISTRIBUTION WIDTH 13.3 % (11.6-17.2); WHITE BLOOD COUNT 10.2 TH/MM3 (4.0-11.0)
[2017-06-21] MEDS ORDERED: VANCOMYCIN INJ 1,000 MG in SODIUM CHLOR 0.9% 250 ML INJ 250 ML IV ONE (14:00)
[2017-06-21] MEDS ORDERED: PIPERACIL-TAZO 3.375 GM PREMIX 50 ML IV ONE (14:00)
[2017-06-21 14:11] LABS: BICARBONATE 28.3 MEQ/L (21.0-32.0); CALCIUM 8.5 MG/DL (8.5-10.1); CREATININE 0.94 MG/DL (0.60-1.30)
[2017-06-21 14:13] LABS: PROTHROMBIN TIME - PATIENT 10.1 SEC (9.8-11.6)
--- NOTE | 2017-06-21 14:14 | RADRPT ---
EXAM DATE/TIME: 06/21/2017 13:59 [facility] COMPARISON: No previous studies available for comparison. INDICATIONS : Left hand swollen from shooting up heroin per pt. MEDICAL HISTORY : cellulitis, IV drug user SURGICAL HISTORY : vascular surgery left lower extremity 6 years ago. ENCOUNTER: Initial ACUITY: 1 week PAIN SCORE: 10/10 LOCATION: Left hand FINDINGS: Three-view examination of the hand demonstrates the osseous structures to be intact with normal densi ty, no periosteal reaction and no focal areas of destruction. There is prominent dorsal soft tissue swelling about the hand and some irregularity of the skin in the dorsal region. No radiopaque foreig n bodies. CONCLUSION: 1. Prominent dorsal soft tissue swelling. 2. Osseous structures the hand are radiographically intact. Thanh Mays MD on June 21, 2017 at 14:11 Board Certified Radiologist. This report was verified electronically.
--- NOTE | 2017-06-21 14:16 | RADRPT ---
EXAM DATE/TIME: 06/21/2017 14:02 [facility] COMPARISON: No previous studies available for comparison. INDICATIONS : Left forearm swollen from shooting up heroin per pt. MEDICAL HISTORY : cellulitis, IV drug user SURGICAL HISTORY : unspecified vascular surgery left lower leg 6 years ago. ENCOUNTER: Initial ACUITY: 1 week PAIN SCORE: 10/10 LOCATION: Left forearm FINDINGS: 2 views of the forearm demonstrate the osseous structures be radiographically intact. No evidence of periosteal reaction. There is moderate soft tissue swelling about the proximal forearm. No radiopa que foreign bodies. CONCLUSION: Osseous structures are grossly intact. No radiopaque foreign bodies. Thanh Mays MD on June 21, 2017 at 14:13 Board Certified Radiologist. This report was verified electronically.
[2017-06-21] MEDS ORDERED: ONDANSETRON HCL 4 MG/2 ML VIAL IVP PRN (15:30)
[2017-06-21] MEDS ORDERED: MAGNESIUM HYDROXIDE SUSP 30 ML CUP PO PRN (15:30)
[2017-06-21] MEDS ORDERED: ACETAMINOPHEN 325 MG TAB PO PRN (15:30)
[2017-06-21] MEDS ORDERED: Vancomycin Consult Pharmacy 1 EA OTHER SCH (15:30)
--- NOTE | 2017-06-21 16:31 | HHI.HP ---
[facility] Physician No Primary Care Physician Admission Diagnosis Left arm cellulitis Diagnoses: (1) Left arm cellulitis (2) Drug abuse, IV Chief Complaint: Left arm redness, swelling and pain Travel History International Travel<30 Days: No Contact w/Intl Traveler <30 Da: No Traveled to Known Affected Are: No History of Present Illness 42-year-old male with a past medical history significant for IV drug abuse was brought to the emergency department from a local correctional facility for evaluation of a five-day history of left upper extremity pain and swelling. Patient reports that his injected heroin about 1 month ago before his recent incarceration. While inside of this local correctional facility, patient was treated with a course of Bactrim DS without any significant improvement. He endorses severe left arm pain rated 10/10 intensity but denies any febrile episodes. He also denies any chest pain or shortness of breath. Review of Systems Except as stated in HPI: all other systems reviewed are Neg Past Family Social History Past Medical History IVDU Past Surgical History Unspecified vascular surgery on the left lower extremity 6 years ago Reported Medications None Allergies: Coded Allergies: No Known Allergies (Unverified Allergy, Unknown, 06/21/17) Family History None. Mother and father without significant medical comorbidities. Social History Endorses drinking a 4 pack of beer daily. IV drug abuse with Dilaudid and heroin However patient over the past 1 month has been in care home in a correction facility Physical Exam Vital Signs Vital Signs Date Time Temp Pulse Resp B/P (MAP) Pulse Ox O2 Delivery O2 Flow Rate FiO2 06/21/17 13:22 98.2 84 17 121/59 (79) 99 Room Air 06/21/17 13:18 17 06/21/17 13:01 98.2 91 18 128/78 (95) 99 Physical Exam GENERAL: This is a well-nourished, well-developed patient, in no apparent distress. SKIN: Left hand and forearm with erythema, edema; left thumb with loss of sensation to the lateral aspect; all other fingers and medial aspect of thumb with sensory intact; fingers are pink; 2+ radial pulse; patient unable to move the fingers at the MCP joints. HEAD: Atraumatic. Normocephalic. No temporal or scalp tenderness. EYES: Pupils equal round and reactive. Extraocular motions intact. No scleral icterus. No injection or drainage. ENT: Nose without bleeding, purulent drainage or septal hematoma. Throat without erythema, tonsillar hypertrophy or exudate. Uvula midline. Airway patent. NECK: Trachea midline. No JVD or lymphadenopathy. Supple, nontender, no meningeal signs. CARDIOVASCULAR: Regular rate and rhythm without murmurs, gallops, or rubs. RESPIRATORY: Clear to auscultation. Breath sounds equal bilaterally. No wheezes , rales, or rhonchi. GASTROINTESTINAL: Abdomen soft, non-tender, nondistended. No hepato-splenomegaly , or palpable masses. No guarding. MUSCULOSKELETAL: Extremities without clubbing, cyanosis, or edema. No joint tenderness, effusion, or edema noted. No calf tenderness. Negative Homans sign bilaterally. NEUROLOGICAL: Awake and alert. Cranial nerves II through XII intact. Motor and sensory grossly within normal limits. Five out of 5 muscle strength in all muscle groups. Normal speech. Laboratory Laboratory Tests Test 06/21/17 13:44 White Blood Count 10.2 Red Blood Count 4.31 Hemoglobin 12.8 Hematocrit 37.4 Mean Corpuscular Volume 86.9 Mean Corpuscular Hemoglobin 29.7 Mean Corpuscular Hemoglobin Concent 34.2 Red Cell Distribution Width 13.3 Platelet Count 212 Mean Platelet Volume 7.3 Neutrophils (%) (Auto) 74.3 Lymphocytes (%) (Auto) 14.1 Monocytes (%) (Auto) 8.9 Eosinophils (%) (Auto) 2.2 Basophils (%) (Auto) 0.5 Neutrophils # (Auto) 7.6 Lymphocytes # (Auto) 1.4 Monocytes # (Auto) 0.9 Eosinophils # (Auto) 0.2 Basophils # (Auto) 0.1 CBC Comment DIFF FINAL Differential Comment Prothrombin Time 10.1 Prothromb Time International Ratio 1.0 Activated Partial Thromboplast Time 26.0 Blood Urea Nitrogen 8 Creatinine 0.94 Random Glucose 96 Calcium Level 8.5 Sodium Level 141 Potassium Level 4.2 Chloride Level 107 Carbon Dioxide Level 28.3 Anion Gap 6 Estimat Glomerular Filtration Rate 88 Date/Time Source Procedure Growth Status 06/21/17 14:20 Blood Peripheral Aerobic Blood Culture Pending Received 06/21/17 14:20 Blood Peripheral Anaerobic Blood Culture Pending Received Result Diagram: 06/21/17 1344 06/21/17 1344 Imaging Last Impressions Radius/Ulna X-Ray 06/21/17 1329 Signed Impressions: Service Date/Time: Wednesday, June 21, 2017 14:02 - CONCLUSION: Osseous structures are grossly intact. No radiopaque foreign bodies. Thanh Mays MD Hand X-Ray 06/21/17 1329 Signed Impressions: Service Date/Time: Wednesday, June 21, 2017 13:59 - CONCLUSION: 1. Prominent dorsal soft tissue swelling. 2. Osseous structures the hand are radiographically intact. Thanh Mays MD Septic Shock Reassessment Septic shock perfusion: reassessment completed Caprini VTE Risk Assessment Caprini VTE Risk Assessment: No/Low Risk (score <= 1) Caprini Risk Assessment Model Point Value = 1 Point Value = 2 Point Value = 3 Point Value = 5 Age 41-60 Minor surgery BMI > 25 kg/m2 Swollen legs Varicose veins or History of unexplained or recurrent spontaneous Oral contraceptives or hormone replacement Sepsis (< 1 month) Serious lung disease, including pneumonia (< 1 month) Abnormal pulmonary function Acute myocardial infarction Congestive heart failure (< 1 month) History of inflammatory bowel disease Medical patient at bed rest Age 61-74 Arthroscopic surgery Major open surgery (> 45 min) Laparoscopic surgery (> 45 min) Malignancy Confined to bed (> 72 hours) Immobilizing plaster cast Central venous access Age >= 75 History of VTE Family history of VTE Factor V Leiden Prothrombin [id number] Lupus anticoagulant Anticardiolipin antibodies Elevated serum homocysteine Heparin-induced thrombocytopenia Other congenital or acquired thrombophilia Stroke (< 1 month) Elective arthroplasty Hip, pelvis, or leg fracture Acute spinal cord injury (< 1 month) Prophylaxis Regimen Total Risk Factor Score Risk Level Prophylaxis Regimen 0-1 Low Early ambulation 2 Moderate Order ONE of the following: *Sequential Compression Device (SCD) *Heparin 5000 units SQ BID 3-4 Higher Order ONE of the following medications: *Heparin 5000 units SQ TID *Enoxaparin/Lovenox 40 mg SQ daily (WT < 150 kg, CrCl > 30 mL/min) *Enoxaparin/Lovenox 30 mg SQ daily (WT < 150 kg, CrCl > 10-29 mL/min) *Enoxaparin/Lovenox 30 mg SQ BID (WT < 150 kg, CrCl > 30 mL/min) AND/OR *Sequential Compression Device (SCD) 5 or more Highest Order ONE of the following medications: *Heparin 5000 units SQ TID (Preferred with Epidurals) *Enoxaparin/Lovenox 40 mg SQ daily (WT < 150 kg, CrCl > 30 mL/min) *Enoxaparin/Lovenox 30 mg SQ daily (WT < 150 kg, CrCl > 10-29 mL/min) *Enoxaparin/Lovenox 30 mg SQ BID (WT < 150 kg, CrCl > 30 mL/min) AND *Sequential Compression Device (SCD) Assessment and Plan Problem List: (1) Left arm cellulitis ICD Code: L03.114 - Cellulitis of left upper limb Status: Acute (2) Drug abuse, IV ICD Code: F19.10 - Other psychoactive substance abuse, uncomplicated Assessment and Plan 42-year-old man with Left upper arm cellulitis hand x-ray noted and review by me with prominent dorsal soft tissue swelling Status post vancomycin and Zosyn 1 in ED, continue with antibiotics Check LEFT UPPER EXTREMITY US TO RULE OUT ABSCESS Hand surgery consultation pending Pain management accordingly History of IVDU Counseling provided regarding cessation History of hepatitis C Outpatient management DVT prophylaxis: B- SCDs Code Status Full code Discussed Condition With Patient, ED physician Physician Certification 2 Midnight Certification Type: Admission for Inpatient Services Order for Inpatient Services The services are ordered in accordance with Medicare regulations or non- Medicare payer requirements, as applicable. In the case of services not specified as inpatient-only, they are appropriately provided as inpatient services in accordance with the 2-midnight benchmark. Estimated LOS (days): 2 days is the estimated time the patient will need to remain in the hospital, assuming treatment plan goals are met and no additional complications. Post-Hospital Plan: Not yet determined Azar Alexis MD Jun 21, 2017 16:31
--- NOTE | 2017-06-21 17:18 | RADRPT ---
EXAM DATE/TIME: 06/21/2017 16:33 [facility] COMPARISON: HAND LEFT COMPLETE ([id number]), June 21, 2017, 13:59. INDICATIONS : Left arm swelling and pain. MEDICAL HISTORY : Gastroesophageal reflux disease. Substance abuse. SURGICAL HISTORY : Tonsillectomy. Right arm surgery. Left toe amputation. Left hand I&D. ENCOUNTER: Initial ACUITY: 3 days PAIN SCORE: 8/10 LOCATION: Left arm. AREA EVALUATED: Left posterior hand and forearm. FINDINGS: There is a heterogeneous echogenicity primarily hypoechoic avascular mass/collection in the dorsal le ft hand which has a maximum oblong sagittal dimension of just over 4 cm with a thickness of just grea ter than a centimeter and transverse width of nearly 3 cm. This is presumably a phlegmonous collectio n of some sort in the subcutaneous tissues. A smaller somewhat more homogeneous collection in his pre sent in the webspace between the third and fourth fingers, measuring just under a centimeter and a schreiber lf. All of the surrounding soft tissues are markedly hyperemic. CONCLUSION: 2 separate visualized collections in the left hand as described. Pronounced diffuse hyperemia. Jonatan Wong MD on June 21, 2017 at 17:11 Board Certified Radiologist. This report was verified electronically.
[2017-06-21 17:53] VITALS: BP 133/82; PULSE 80; RESP 18; TEMP 98.3; O2SAT 100
[2017-06-21] MEDS ORDERED: BUPIVACAINE HCL PF 0.5% 30 ML VIAL ONE (18:37)
[2017-06-21] MEDS ORDERED: MUPIROCIN 2% OINT 22 GM TUBE ONE (18:37)
[2017-06-21] MEDS ORDERED: LIDOCAINE HCL 2% 50 ML VIAL ONE (18:37)
--- NOTE | 2017-06-21 18:54 | MB ---
cc: ARIELA ROMAN MD DATE OF CONSULTATION 06/21/2017 REASON FOR CONSULTATION Left hand infection. HISTORY OF THE PRESENT ILLNESS The patient is a 42-year-old white hand dominant male with history of IV drug abuse was brought into the ER today with complaints of worsening pain and swelling involving the left hand and forearm for the past 3-4 days. The patient states he had injected here about one month ago and noticed infection of the dorsal aspect of the left hand. The patient was treated with p.o. antibiotics. He was incarcerated and was in a local correctional facility. Over the past 3-4 days he noticed worsening pain and swelling of the left hand. He also had incision and drainage done in the local correctional facility. The patient states no purulent material was drained. He also complains of worsening swelling involving the forearm. Denies any tingling or numbness. Denies any fever. Denies any chest pain or shortness of breath. Denies any recent history of IV drug abuse within the past 3-4 weeks. The last use was more than a month ago. PHYSICAL EXAMINATION GENERAL: The patient is alert, oriented x3. EXTREMITIES: Examination of left upper extremity reveals packing over the dorsal aspect of the hand with a centimeter incision. Packing was removed, appears to be superficial. No evidence of purulent material drainage noted. Swelling of the dorsal aspect of the hand and fingers noted. Swelling also noted which extends all the way to the elbow region on the dorsal lateral aspect of the forearm. The forearm compartments appears to be supple. He has tenderness over the dorsal aspect of the hand. Questionable fluctuation of the dorsal aspect of the hand noted. He has limited range of finger flexion and extension. Range of motion of the finger is associated with pain. He has intact distal circulation and intact capillary refill and sensation distally. IMAGING X-rays of the left hand and forearm was reviewed shows swelling over the dorsal aspect of the hand. LABORATORY DATA His lab work was reviewed. He has white count of 10.2 and shift of 74%. ASSESSMENT A 42-year-old male with infection left hand dorsum and questionable collection and swelling of the left forearm. PLAN The plan will be to obtain an ultrasound of the left hand to look for a collection. We will keep the patient n.p.o. probably take him for emergent incision and drainage. The patient has been advised regarding limb elevation. He has been explained risk and benefits of the procedure. Ariela Roman MD SE/SANDEEP /4:57 PM /6:41 PM
--- NOTE | 2017-06-21 19:36 | PD.OP ---
Operative Report Preoperative Diagnosis: (1) Abscess of left hand Postoperative Diagnosis: (1) Abscess of left hand Procedure: incision and drainage of complicated abscess left hand dorsum Anesthesia: general Surgeon: Brain Calderón Optician Manager(s): ana Operation and Findings: abscess over the dorsal aspect of the hand extensive inflammatory tissue extensive soft tissue edema Brain Calderón MD Jun 21, 2017 19:36
[2017-06-21] MEDS ORDERED: DO NOT ADM ANY ANTICOAGULANT DRUGS PRN (19:38)
[2017-06-21] MEDS ORDERED: MORPHINE SULFATE 4 MG/ML INJ ONE (19:45)
[2017-06-21 20:00] VITALS: BP 141/71; PULSE 74; RESP 14; TEMP 97.8; O2SAT 98
[2017-06-21] MEDS: PIPERACIL-TAZO 3.375 GM PREMIX 50 ML IV SCH (21:19)
[2017-06-21] MEDS: ACETAMINOPHEN 325 MG TAB PO PRN (21:20)
[2017-06-21] MEDS: SODIUM CHLORIDE 0.9% FLUSH 10 ML FLUSH IV FLUSH SCH (21:53)
[2017-06-21] MEDS ORDERED: oxyCODONE/ACETAMINOPHEN 5 MG/325 MG TAB PO ONE (23:00)
[2017-06-22 00:04] VITALS: BP 128/56; PULSE 82; RESP 15; TEMP 97.9; O2SAT 94
[2017-06-22] MEDS: VANCOMYCIN 1,000 MG/NS 250 ML IV SCH ×4 (03:03→17:22)
[2017-06-22] MEDS: ACETAMINOPHEN 325 MG TAB PO PRN ×2 (03:03→21:31)
[2017-06-22 04:00] VITALS: BP 127/59; PULSE 87; RESP 14; TEMP 98; O2SAT 97
[2017-06-22] MEDS: PIPERACIL-TAZO 3.375 GM PREMIX 50 ML IV SCH ×3 (06:16→21:32)
[2017-06-22 06:50] LABS: AUTOMATED NEUTROPHIL # 7.4 TH/MM3 (1.8-7.7); BASOPHIL # 0.1 TH/MM3 (0-0.2); BASOPHIL % 0.7 % (0.0-2.0); EOSINOPHIL # 0.2 TH/MM3 (0-0.4); EOSINOPHIL % 2.1 % (0.0-4.0); HEMATOCRIT 35.3 % (39.0-51.0); LYMPH % 14.2 % (9.0-44.0); LYMPHOCYTE # 1.4 TH/MM3 (1.0-4.8); MEAN CELL VOLUME 86.8 FL (80.0-100.0); MEAN CORPUSCULAR HEMOGLOBIN 29.6 PG (27.0-34.0); MEAN CORPUSCULAR HGB CONC 34.1 % (32.0-36.0); MEAN PLATELET VOLUME 7.8 FL (7.0-11.0); MONO % 6.3 % (0.0-8.0); MONOCYTE # 0.6 TH/MM3 (0-0.9); NEUT % 76.7 % (16.0-70.0); PLATELET COUNT 197 TH/MM3 (150-450); RED BLOOD COUNT 4.06 MIL/MM3 (4.50-5.90); RED CELL DISTRIBUTION WIDTH 13.1 % (11.6-17.2); WHITE BLOOD COUNT 9.7 TH/MM3 (4.0-11.0)
[2017-06-22 07:14] LABS: ALBUMIN 2.9 GM/DL (3.4-5.0); AST (GOT) 25 U/L (15-37); BICARBONATE 24.7 MEQ/L (21.0-32.0); BLOOD UREA NITROGEN 6 MG/DL (7-18); CALCIUM 7.9 MG/DL (8.5-10.1); CHLORIDE 107 MEQ/L (98-107); CREATININE 0.86 MG/DL (0.60-1.30); GLOMERULAR FILTRATION RATE 98 ML/MIN (>89); GLUCOSE,RANDOM 86 MG/DL (74-106); SODIUM (NA) 138 MEQ/L (136-145)
[2017-06-22 07:18] LABS: ALKALINE PHOSPHATASE 67 U/L (45-117); ALT (GPT) 53 U/L (12-78); TOTAL BILIRUBIN ADULT 0.3 MG/DL (0.2-1.0); TOTAL PROTEIN 6.4 GM/DL (6.4-8.2)
[2017-06-22 08:00] VITALS: BP 115/56; PULSE 75; RESP 16; TEMP 98.8; O2SAT 96
[2017-06-22] MEDS ORDERED: VANCOMYCIN INJ 1,250 MG in SODIUM CHLOR 0.9% 250 ML INJ 250 ML IV SCH (09:00)
--- NOTE | 2017-06-22 11:19 | MP ---
cc: ARIELA ROMAN MD DATE OF SURGERY: 06/21/2017 PREOPERATIVE DIAGNOSIS Abscess left hand, dorsum. POSTOPERATIVE DIAGNOSIS Abscess left hand, dorsum. PROCEDURE Incision and drainage complicated abscess left hand, dorsum. SURGEON Dr. Roman. ANESTHESIA General. ESTIMATED BLOOD LOSS Minimal. TOURNIQUET TIME 14 minutes at 250 mmHg. SPECIMEN The specimen was sent for culture and sensitivity. CONDITION The patient was recovered and sent to the recovery room in stable condition. INDICATION The patient is a 42-year-old left-hand dominant male who presented with complaints of pain and swelling over the dorsal aspect of the left hand for the past 3-4 days. The patient gives history of IV drug abuse about a month ago. The patient was incarcerated and was getting p.o. antibiotics and he got admitted today with worsening pain involving the left hand. On examination he had a small incision over the dorsal aspect of the hand and extensive soft tissue edema, erythema and tenderness noted over the dorsal aspect of the hand. The swelling extended to the elbow region. Questionable fluctuation was noted over the dorsal aspect of the hand. The patient had an ultrasound which showed collection over the dorsal aspect of the hand, two separate collections, one between the index ancillary third and fourth fingers over the webspace, and another over the dorsal aspect of the hand. The patient had a white count shift of 78%. He was consented for incision and drainage of left hand abscess. The patient was explained the risks and benefits of the procedure. PROCEDURE The patient was brought to the operating room, under general anesthesia the left upper extremity was thoroughly prepped and draped. After limb elevation tourniquet was inflated to 50 mmHg. Incision site was marked over the dorsal aspect of the hand incorporating the previous incision made at the outside facility measuring about 3-4 cm. An incision was made over the proposed incision site. Soft tissue dissection was carried out. There was evidence of abscess cavity over the dorsal aspect of the hand and purulent material was drained from the region. Material was obtained for culture and sensitivity. Blunt soft tissue dissection was carried out. Using finger multiple pockets were broken on the dorsal aspect of the hand. The pocket in between the third and fourth fingers webspace was also approached through the same incision. Extensive inflammatory tissue was noted over the dorsal aspect of the extensor tendons. Excision and debridement was carried out using rongeur. Thorough wash was given using normal saline mixed with irrigant and hydrogen peroxide, about a liter of solution was used. The tourniquet was deflated. Total tourniquet time was 14 minutes. The patient had good distal circulation after release of tourniquet. Packing of the wound was carried out with quarter-inch Iodoform packing material. The skin was approximated with a single 4-0 Nylon stitch in the center. Bulky hand dressing was applied which was held in place by Sof-Rol and bias hand wrap. The patient had good distal circulation at the end of the procedure. He was recovered and sent to the recovery room in stable condition. Plan will be to continue IV antibiotics and change the packing tomorrow. Ariela Roman MD SE/TLL /7:36 PM /10:46 AM
[2017-06-22] MEDS: IBUPROFEN 600 MG TAB PO SCH ×4 (11:28→23:11)
[2017-06-22] MEDS: SODIUM CHLORIDE 0.9% FLUSH 10 ML FLUSH IV FLUSH SCH ×2 (11:29→21:32)
--- NOTE | 2017-06-22 11:51 | HHI.PR ---
Subjective Remarks Follow up left arm abscess status post I&D 06/22/17-patient seen and examined, he had I&D done yesterday, request since ibuprofen secondary to poorly controlled pain. Afebrile. supply requirements officer in the room Objective Vitals Vital Signs Date Time Temp Pulse Resp B/P (MAP) Pulse Ox O2 Delivery O2 Flow Rate FiO2 06/22/17 08:00 98.8 75 16 115/56 (75) 96 06/22/17 04:00 98.0 87 14 127/59 (81) 97 06/22/17 00:04 97.9 82 15 128/56 (80) 94 06/21/17 20:00 97.8 74 14 141/71 (94) 98 06/21/17 20:00 98.3 102 20 145/60 (88) 96 Room Air 06/21/17 19:45 92 20 159/72 (101) 94 Room Air 06/21/17 19:35 97.6 93 16 160/76 (104) 93 Room Air 06/21/17 17:53 98.3 80 18 133/82 (99) 100 06/21/17 17:48 06/21/17 13:22 98.2 84 17 121/59 (79) 99 Room Air 06/21/17 13:18 17 06/21/17 13:01 98.2 91 18 128/78 (95) 99 I/O 06/21/17 06/21/17 06/21/17 06/22/17 06/22/17 06/22/17 07:00 15:00 23:00 07:00 15:00 23:00 Intake Total 1950 ml 780 ml Output Total 10 ml 900 ml Balance 1940 ml -120 ml Intake Oral 480 ml IV Total 1350 ml 300 ml Other 600 ml Output Urine Total 900 ml Estimated Blood Loss 10 ml Result Diagram: 06/22/17 0615 06/22/17 0615 Imaging Last Impressions Radius/Ulna X-Ray 06/21/179 Signed Impressions: Service Date/Time: Wednesday, June 21, 2017 14:02 - CONCLUSION: Osseous structures are grossly intact. No radiopaque foreign bodies. Thanh Mays MD Hand X-Ray 06/21/17 1329 Signed Impressions: Service Date/Time: Wednesday, June 21, 2017 13:59 - CONCLUSION: 1. Prominent dorsal soft tissue swelling. 2. Osseous structures the hand are radiographically intact. Thanh Mays MD Upper Extremity Ultrasound 06/21/17 0000 Signed Impressions: Service Date/Time: Wednesday, June 21, 2017 16:33 - CONCLUSION: 2 separate visualized collections in the left hand as described. Pronounced diffuse hyperemia. Jonatan Wong MD Objective Remarks GENERAL: NAD SKIN: Warm and dry. HEAD: Normocephalic. EYES: No scleral icterus. No injection or drainage. NECK: Supple, trachea midline. No JVD or lymphadenopathy. CARDIOVASCULAR: Regular rate and rhythm without murmurs, gallops, or rubs. RESPIRATORY: Breath sounds equal bilaterally. No accessory muscle use. GASTROINTESTINAL: Abdomen soft, non-tender, nondistended. MUSCULOSKELETAL: No cyanosis, or edema.s/p Left arm I&D, dressing in place BACK: Nontender without obvious deformity. No CVA tenderness. Procedures s/p Incision and drainage complicated abscess left hand, dorsum 06/21/17 A/P Problem List: (1) Left arm cellulitis ICD Code: L03.114 - Cellulitis of left upper limb Status: Acute (2) Drug abuse, IV ICD Code: F19.10 - Other psychoactive substance abuse, uncomplicated Assessment and Plan 42-year-old man with Left arm abscess Left upper arm cellulitis s/p Incision and drainage complicated abscess left hand, dorsum 06/21/17 Currently on vancomycin and Zosyn pending cultures report Hand surgery consultation appreciate Pain management accordingly; start Ibuprofen History of IVDU Counseling provided regarding cessation History of hepatitis C Outpatient management DVT prophylaxis: Jacob- Azar Lyn MD Jun 22, 2017 11:50
[2017-06-22 12:00] VITALS: BP 128/67; PULSE 80; RESP 16; TEMP 98.1; O2SAT 97
--- NOTE | 2017-06-22 15:38 | HHI.PR ---
Subjective Remarks complains of pain denies any numbness denies any fever Objective Vital Signs Date Time Temp Pulse Resp B/P (MAP) Pulse Ox O2 Delivery O2 Flow Rate FiO2 06/22/17 14:30 20 06/22/17 08:00 98.8 75 16 115/56 (75) 96 06/22/17 04:00 98.0 87 14 127/59 (81) 97 06/22/17 00:04 97.9 82 15 128/56 (80) 94 06/21/17 20:00 97.8 74 14 141/71 (94) 98 06/21/17 20:00 98.3 102 20 145/60 (88) 96 Room Air 06/21/17 19:45 92 20 159/72 (101) 94 Room Air 06/21/17 19:35 97.6 93 16 160/76 (104) 93 Room Air 06/21/17 17:53 98.3 80 18 133/82 (99) 100 06/21/17 17:48 I/O 06/21/17 06/21/17 06/21/17 06/22/17 06/22/17 06/22/17 07:00 15:00 23:00 07:00 15:00 23:00 Intake Total 1950 ml 780 ml Output Total 10 ml 900 ml Balance 1940 ml -120 ml Intake Oral 480 ml IV Total 1350 ml 300 ml Other 600 ml Output Urine Total 900 ml Estimated Blood Loss 10 ml left hand: decreased swelling packing in place able to move his fingers better intact sensation and circulation gram stain and cultures: negative to date Result Diagram: 06/22/1715 06/22/1715 Assessment and Plan Assessment and Plan 42 year old male s/p Incision and drainage left hand POD 1 Plan: part of the packing pulled out partially dressing applied keep the part elevated finger range of motion exercises hand surgery will follow. Brain Calderón MD Jun 22, 2017 15:38
[2017-06-22 16:00] VITALS: BP 121/65; PULSE 77; RESP 16; TEMP 97.9; O2SAT 98
[2017-06-22 20:00] VITALS: BP 131/80; PULSE 66; RESP 19; TEMP 99; O2SAT 98
[2017-06-23] VITALS: BP 123/71; PULSE 59; RESP 19; TEMP 98.7; O2SAT 96
[2017-06-23] MEDS: VANCOMYCIN 1,000 MG/NS 250 ML IV SCH ×4 (02:26→15:12)
[2017-06-23] MEDS ORDERED: PHARMACY ORDERED LAB ONE (02:45)
[2017-06-23 04:00] VITALS: BP 107/63; PULSE 60; RESP 18; TEMP 97.9; O2SAT 98
[2017-06-23] MEDS: PIPERACIL-TAZO 3.375 GM PREMIX 50 ML IV SCH ×2 (05:19→13:09)
[2017-06-23] MEDS: IBUPROFEN 600 MG TAB PO SCH ×3 (05:20→17:00)
[2017-06-23] MEDS: SODIUM CHLORIDE 0.9% FLUSH 10 ML FLUSH IV FLUSH SCH ×2 (07:29→21:00)
[2017-06-23 08:00] VITALS: BP 95/60; PULSE 62; RESP 18; TEMP 97.5; O2SAT 98
--- NOTE | 2017-06-23 11:22 | HHI.PR ---
Subjective Remarks Follow up left arm abscess status post I&D 06/22/17-patient seen and examined, he had I&D done yesterday, request since ibuprofen secondary to poorly controlled pain. Afebrile. chief quality officer in the room 06/23/17-patient seen and examined, afebrile and no significant left arm pain. Wound culture positive for Viridans Strep Objective Vitals Vital Signs Date Time Temp Pulse Resp B/P (MAP) Pulse Ox O2 Delivery O2 Flow Rate FiO2 06/23/17 08:00 97.5 62 18 95/60 (72) 98 06/23/17 04:00 97.9 60 18 107/63 (78) 98 06/23/17 00:00 98.7 59 19 123/71 (88) 96 06/22/17 20:00 99.0 66 19 131/80 (97) 98 06/22/17 16:00 97.9 77 16 121/65 (83) 98 06/22/17 14:30 20 06/22/17 12:00 98.1 80 16 128/67 (87) 97 I/O 06/22/17 06/22/17 06/22/17 06/23/17 06/23/17 06/23/17 07:00 15:00 23:00 07:00 15:00 23:00 Intake Total 780 ml 1315 ml 715 ml Output Total 900 ml 1500 ml Balance -120 ml -185 ml 715 ml Intake Oral 480 ml 960 ml 400 ml IV Total 300 ml 355 ml 315 ml Output Urine Total 900 ml 1500 ml # Voids 6 # Bowel Movements 2 1 Result Diagram: 06/22/17 0615 06/22/17 0615 Imaging Last Impressions Radius/Ulna X-Ray 06/21/171328 Signed Impressions: Service Date/Time: Wednesday, June 21, 2017 14:02 - CONCLUSION: Osseous structures are grossly intact. No radiopaque foreign bodies. Thanh Mays MD Hand X-Ray 06/21/171328 Signed Impressions: Service Date/Time: Wednesday, June 21, 2017 13:59 - CONCLUSION: 1. Prominent dorsal soft tissue swelling. 2. Osseous structures the hand are radiographically intact. Thanh Mays MD Upper Extremity Ultrasound 06/21/17 0000 Signed Impressions: Service Date/Time: Wednesday, June 21, 2017 16:33 - CONCLUSION: 2 separate visualized collections in the left hand as described. Pronounced diffuse hyperemia. Jonatan Wong MD Objective Remarks GENERAL: NAD SKIN: Warm and dry. HEAD: Normocephalic. EYES: No scleral icterus. No injection or drainage. NECK: Supple, trachea midline. No JVD or lymphadenopathy. CARDIOVASCULAR: Regular rate and rhythm without murmurs, gallops, or rubs. RESPIRATORY: Breath sounds equal bilaterally. No accessory muscle use. GASTROINTESTINAL: Abdomen soft, non-tender, nondistended. MUSCULOSKELETAL: No cyanosis, or edema.s/p Left arm I&D, dressing in place BACK: Nontender without obvious deformity. No CVA tenderness. Procedures s/p Incision and drainage complicated abscess left hand, dorsum 06/21/17 A/P Problem List: (1) Left arm cellulitis ICD Code: L03.114 - Cellulitis of left upper limb Status: Acute (2) Drug abuse, IV ICD Code: F19.10 - Other psychoactive substance abuse, uncomplicated Assessment and Plan 42-year-old man with Left arm abscess Left upper arm cellulitis s/p Incision and drainage complicated abscess left hand, dorsum 06/21/17 Currently on vancomycin and Zosyn Wound culture positive for Viridans Strep; Will Consult Infectious disease specialist Hand surgery consultation appreciate Pain management accordingly; start Ibuprofen History of IVDU Counseling provided regarding cessation History of hepatitis C Outpatient management DVT prophylaxis: Jacob- Azar Lyn MD Jun 23, 2017 11:22
[2017-06-23 12:00] VITALS: BP 114/84; PULSE 67; RESP 18; TEMP 97.3; O2SAT 93
--- NOTE | 2017-06-23 15:48 | HHI.PR ---
Subjective Remarks complains of pain which is getting better denies any numbness denies any fever Objective Vital Signs Date Time Temp Pulse Resp B/P (MAP) Pulse Ox O2 Delivery O2 Flow Rate FiO2 06/23/17 12:00 97.3 67 18 114/84 (94) 93 06/23/17 08:00 97.5 62 18 95/60 (72) 98 06/23/17 04:00 97.9 60 18 107/63 (78) 98 06/23/17 00:00 98.7 59 19 123/71 (88) 96 06/22/17 20:00 99.0 66 19 131/80 (97) 98 06/22/17 16:00 97.9 77 16 121/65 (83) 98 I/O 06/22/17 06/22/17 06/22/17 06/23/17 06/23/17 06/23/17 06:59 14:59 22:59 06:59 14:59 22:59 Intake Total 780 ml 1315 ml 715 ml 50 ml Output Total 900 ml 1500 ml Balance -120 ml -185 ml 715 ml 50 ml Intake Oral 480 ml 960 ml 400 ml IV Total 300 ml 355 ml 315 ml 50 ml Output Urine Total 900 ml 1500 ml # Voids 6 # Bowel Movements 2 1 left hand: decreased swelling forearm swelling has decreased considerably packing in place with surround swelling and erythema minimal drainage noted able to make a better fist intact sensation distally cultures: viridans streptococcus Result Diagram: 06/22/17 0615 06/22/17 0615 Assessment and Plan Assessment and Plan 42 year old male s/p Incision and drainage left hand POD 2 Plan: part of the packing pulled out partially dressing applied keep the part elevated finger range of motion exercises hand surgery will follow. Brain Calderón MD Jun 23, 2017 15:47
[2017-06-23 16:00] VITALS: BP 116/76; PULSE 58; RESP 20; TEMP 97.7; O2SAT 95
[2017-06-23 20:00] VITALS: BP 132/67; PULSE 81; RESP 18; TEMP 97.4; O2SAT 97
--- NOTE | 2017-06-23 20:32 | PD.ID.CON ---
History of Present Illness Service ID Consult Requested By Dr Alexis Reason for Consult L hand infection Primary Care Physician No Primary Care Physician Diagnoses: History of Present Illness 42 yo male IVDU ser developpped infection on his L hand since end of May - swelling, pain redness presented from local correctional facility with 10/10 pain He was given abx prior to admission (bactrim, doxycyline) He had no fever, leukocytosis US showed 2 separate visualized collections in the left hand Pt went to OR 2 days ago for I+D: op findings cw abscess Clx positive for viridans strep Review of Systems Except as stated in HPI: all other systems reviewed are Neg Past Family Social History Allergies: Coded Allergies: No Known Allergies (Unverified Allergy, Unknown, 06/21/17) Past Medical History IVDU Past Surgical History lower extemety surgery Active Ordered Medications Medications where reviewed in EMR Antibiotics Include: zosyn jorge Family History reviewed non contributory Social History + beer + tobacco - quit 1 month ago + IVDU Physical Exam Vital Signs Vital Signs Date Time Temp Pulse Resp B/P (MAP) Pulse Ox O2 Delivery O2 Flow Rate FiO2 06/23/17 16:00 97.7 58 20 116/76 (89) 95 06/23/17 12:00 97.3 67 18 114/84 (94) 93 06/23/17 08:00 97.5 62 18 95/60 (72) 98 06/23/17 04:00 97.9 60 18 107/63 (78) 98 06/23/17 00:00 98.7 59 19 123/71 (88) 96 Physical Exam CONSTITUTIONAL/GENERAL: This is an adequately nourished patient, in no apparent distress. TUBES/LINES/DRAINS: SKIN: No jaundice, rashes, or lesions. Skin temperature appropriate. Not diaphoretic. HEAD: Atraumatic. Normocephalic. EYES: Pupils equal and round and reactive. Extraocular motions intact. No scleral icterus. No injection or drainage. Fundi not examined. ENT: Hearing grossly normal. Nose without bleeding or purulent drainage. Throat without visible erythema, exudates, masses, or lesions. NECK: Trachea midline. Supple, nontender. No palpable thyroid enlargement or nodularity. CARDIOVASCULAR: Regular rate and rhythm without murmurs, gallops, or rubs. No JVD. Peripheral pulses symmetric. RESPIRATORY/CHEST: Symmetric, unlabored respirations. Clear to auscultation. Breath sounds equal bilaterally. No wheezes, rales, or rhonchi. GASTROINTESTINAL: Abdomen soft, non-tender, nondistended. No hepato-splenomegaly , or palpable masses. No guarding. Bowel sounds present. GENITOURINARY: Without palpable bladder distension. MUSCULOSKELETAL: Extremities without clubbing, cyanosis, STATUS LOCALIS: L hand with incision on dorsul, minld serosan drainage, no franlk pus no odor + moerate edema + some erythema present on hand, forearm and also above elbow LYMPHATICS: + some ipsolateral axillae adenopathy. NEUROLOGICAL: Awake and alert. Motor and sensory grossly within normal limits. Follows commands. Clear speech. Moves all extremities. PSYCHIATRIC: No obvious anxiety/depression. no apparent hallucinations or other psychotic thought process. Laboratory Laboratory Tests Test 06/23/17 02:10 Vancomycin Level Trough 9.3 Date/Time Source Procedure Growth Status 06/21/17 14:20 Blood Peripheral Aerobic Blood Culture - Preliminary NO GROWTH IN 2 DAYS Resulted 06/21/17 14:20 Blood Peripheral Anaerobic Blood Culture - Preliminary NO GROWTH IN 2 DAYS Resulted 06/21/17 19:10 Abscess Hand Gram Stain - Final Complete 06/21/17 19:10 Wound Culture - Final Viridans Streptococcus Grp Complete Result Diagram: 06/22/17 0615 06/22/17 0615 Imaging Last Impressions Radius/Ulna X-Ray 06/21/17 1329 Signed Impressions: Service Date/Time: Wednesday, June 21, 2017 14:02 - CONCLUSION: Osseous structures are grossly intact. No radiopaque foreign bodies. Thanh Mays MD Hand X-Ray 06/21/17 1329 Signed Impressions: Service Date/Time: Wednesday, June 21, 2017 13:59 - CONCLUSION: 1. Prominent dorsal soft tissue swelling. 2. Osseous structures the hand are radiographically intact. Thanh Mays MD Upper Extremity Ultrasound 06/21/17 0000 Signed Impressions: Service Date/Time: Wednesday, June 21, 2017 16:33 - CONCLUSION: 2 separate visualized collections in the left hand as described. Pronounced diffuse hyperemia. Jonatan Wong MD Assessment and Plan Assessment and Plan IVDU L hand abscess, viridans strep s/p ID + ascending cellulitis lewis ezosyn, vanco to Unasyn anticipate transition to po augmentin once ready for d/c Carmen Davidson MD Jun 23, 2017 20:32
[2017-06-23] MEDS: ACETAMINOPHEN 325 MG TAB PO PRN (21:41)
[2017-06-23] MEDS: AMPICILLIN-SULBACTAM INJ 3 GM in SODIUM CHLORIDE 0.9% INJ 100 ML IV SCH (21:41)
[2017-06-24] VITALS: BP 115/61; PULSE 54; RESP 16; TEMP 97.9; O2SAT 98
[2017-06-24] MEDS: IBUPROFEN 600 MG TAB PO SCH ×4 (00:17→17:18)
[2017-06-24] MEDS: AMPICILLIN-SULBACTAM INJ 3 GM in SODIUM CHLORIDE 0.9% INJ 100 ML IV SCH ×4 (03:28→21:37)
[2017-06-24] MEDS: ACETAMINOPHEN 325 MG TAB PO PRN ×3 (03:28→21:43)
[2017-06-24 04:00] VITALS: BP 123/55; PULSE 59; RESP 16; TEMP 97.7; O2SAT 97
[2017-06-24 08:00] VITALS: BP 130/60; PULSE 67; RESP 20; TEMP 97.7; O2SAT 98
[2017-06-24] MEDS: SODIUM CHLORIDE 0.9% FLUSH 10 ML FLUSH IV FLUSH SCH ×2 (09:58→21:00)
--- NOTE | 2017-06-24 10:42 | HHI.PR ---
Subjective Remarks Follow-up for left arm cellulitis in a patient with IV drug use history. Patient is currently doing well. Denies any chest pain, shortness of breath, fever or chills. He does complain of some pain on his left arm. Able to move his fingers on the left side. Objective Vitals Vital Signs Date Time Temp Pulse Resp B/P (MAP) Pulse Ox O2 Delivery O2 Flow Rate FiO2 06/24/17 08:00 97.7 67 20 130/60 (83) 98 06/24/17 06:44 18 06/24/17 04:28 16 06/24/17 04:00 97.7 59 16 123/55 (77) 97 06/24/17 00:00 97.9 54 16 115/61 (79) 98 06/23/17 20:00 97.4 81 18 132/67 (88) 97 06/23/17 16:00 97.7 58 20 116/76 (89) 95 06/23/17 12:00 97.3 67 18 114/84 (94) 93 I/O 06/23/17 06/23/17 06/23/17 06/24/17 06/24/17 06/24/17 07:00 15:00 23:00 07:00 15:00 23:00 Intake Total 715 ml 600 ml 50 ml 360 ml Balance 715 ml 600 ml 50 ml 360 ml Intake Oral 400 ml 600 ml 360 ml IV Total 315 ml 50 ml # Voids 6 2 2 # Bowel Movements 1 0 Result Diagram: 06/22/17 0615 06/22/17 0615 Imaging Last Impressions Radius/Ulna X-Ray 06/21/17 1329 Signed Impressions: Service Date/Time: Wednesday, June 21, 2017 14:02 - CONCLUSION: Osseous structures are grossly intact. No radiopaque foreign bodies. Thanh Mays MD Hand X-Ray 06/21/17 1329 Signed Impressions: Service Date/Time: Wednesday, June 21, 2017 13:59 - CONCLUSION: 1. Prominent dorsal soft tissue swelling. 2. Osseous structures the hand are radiographically intact. Thanh Mays MD Upper Extremity Ultrasound 06/21/17 0000 Signed Impressions: Service Date/Time: Wednesday, June 21, 2017 16:33 - CONCLUSION: 2 separate visualized collections in the left hand as described. Pronounced diffuse hyperemia. Jonatan Wong MD Objective Remarks GENERAL: Alert, oriented 3, NAD. SKIN: Warm and dry. HEAD: Normocephalic. EYES: No scleral icterus. No injection or drainage. NECK: Supple, trachea midline. No JVD or lymphadenopathy. CARDIOVASCULAR: Regular rate and rhythm without murmurs, gallops, or rubs. RESPIRATORY: Breath sounds equal bilaterally. No accessory muscle use. GASTROINTESTINAL: Abdomen soft, non-tender, nondistended. MUSCULOSKELETAL: No cyanosis, or edema. Left arm wrapped in dressing. BACK: Nontender without obvious deformity. No CVA tenderness. Procedures s/p Incision and drainage complicated abscess left hand, dorsum 06/21/17 A/P Problem List: (1) Left arm cellulitis ICD Code: L03.114 - Cellulitis of left upper limb Status: Acute (2) Drug abuse, IV ICD Code: F19.10 - Other psychoactive substance abuse, uncomplicated Assessment and Plan Mr. Jones is a 42-year-old male with a history of IV drug use who was brought to the emergency department from a local correctional facility for an evaluation of a 5 day history of left upper extremity pain and swelling. Patient reported injecting heroine about a month before his recent incarceration. He was treated with Bactrim without significant improvement. Upon admission patient was evaluated by hand surgery and underwent I&D. Left arm abscess Left upper arm cellulitis s/p Incision and drainage complicated abscess left hand, dorsum 06/21/17 Currently on Unasyn per infectious disease. Wound culture positive for Viridans Strep Hand surgery consultation appreciate Ibuprofen 600 mg by mouth every 6 hours for pain management. History of IVDU Tobacco abuse Counseling provided regarding cessation as well as IV drug use. History of hepatitis C Outpatient management Full code. SCDs. Discharge plan: Discharge back to correctional facility with law-enforcement when cleared by hand surgery. Eric Waldrop DO Jun 24, 2017 10:42 am
[2017-06-24 10:45] LABS: CREATININE 0.87 MG/DL (0.60-1.30)
[2017-06-24 12:00] VITALS: BP 138/79; PULSE 62; RESP 20; TEMP 98; O2SAT 99
[2017-06-24 16:00] VITALS: BP 116/63; PULSE 68; RESP 20; TEMP 98.7; O2SAT 97
--- NOTE | 2017-06-24 16:18 | PD.ORT.PN ---
Subjective Post Op Day #: 3 Subjective Remarks feeling alot better, but still with some pain Range of Motion full AROM of the fingers and thumb left hand Objective Vitals Vital Signs Date Time Temp Pulse Resp B/P (MAP) Pulse Ox O2 Delivery O2 Flow Rate FiO2 06/24/17 09:15 Room Air 06/24/17 08:00 97.7 67 20 130/60 (83) 98 06/24/17 06:44 18 06/24/17 04:28 16 06/24/17 04:00 97.7 59 16 123/55 (77) 97 06/24/17 00:00 97.9 54 16 115/61 (79) 98 06/23/17 20:00 97.4 81 18 132/67 (88) 97 I/O 06/23/17 06/23/17 06/23/17 06/24/17 06/24/17 06/24/17 07:00 15:00 23:00 07:00 15:00 23:00 Intake Total 715 ml 600 ml 50 ml 360 ml 100 ml Balance 715 ml 600 ml 50 ml 360 ml 100 ml Intake Oral 400 ml 600 ml 360 ml IV Total 315 ml 50 ml 100 ml # Voids 6 2 2 # Bowel Movements 1 0 Result Diagram: 06/22/17 0615 06/24/17 0820 Other Results culture growing strep viridans Objective Remarks wound dorsum left hand with moderate edema and no erythema has some expressible pus, but minimal with pus on the packing. no lymphangitis Assessment & Plan Ortho Post Op Day #: 3 Problem List: (1) Abscess of left hand ICD Codes: L02.512 - Cutaneous abscess of left hand Status: Acute Plan: 2cm of packing pulled back per Dr. Olivares and wound expressed of drainage at bedside manually. Redressed with sterile 4x4s and Kerlix and encouraged to elevate PRN and AROM of the fingers continue IV Unasyn and Dr. Calderón to see on 06/26 for further disposition classification officer in room at bedside Samantha Briscoe MD Jun 24, 2017 16:18
[2017-06-24 20:00] VITALS: BP 136/77; PULSE 61; RESP 16; TEMP 98.2; O2SAT 97
[2017-06-25] VITALS: BP 125/80; PULSE 53; RESP 16; TEMP 97.9; O2SAT 97
[2017-06-25 04:00] VITALS: BP 141/55; PULSE 70; RESP 16; TEMP 97.2; O2SAT 97
[2017-06-25] MEDS: AMPICILLIN-SULBACTAM INJ 3 GM in SODIUM CHLORIDE 0.9% INJ 100 ML IV SCH ×4 (04:04→21:06)
[2017-06-25] MEDS: IBUPROFEN 600 MG TAB PO SCH ×4 (05:50→18:10)
[2017-06-25 08:00] VITALS: BP 135/91; PULSE 70; RESP 20; TEMP 98.1; O2SAT 97
[2017-06-25] MEDS: SODIUM CHLORIDE 0.9% FLUSH 10 ML FLUSH IV FLUSH SCH ×2 (09:53→21:00)
[2017-06-25 12:00] VITALS: BP 127/67; PULSE 67; RESP 20; TEMP 97.1; O2SAT 97
--- NOTE | 2017-06-25 14:16 | HHI.PR ---
Subjective Remarks Follow-up for left arm cellulitis in a patient with IV drug use history. Patient is currently doing well. No acute concerns. Pain is well controlled. No fever or chills. Objective Vitals Vital Signs Date Time Temp Pulse Resp B/P (MAP) Pulse Ox O2 Delivery O2 Flow Rate FiO2 06/25/17 08:00 98.1 70 20 135/91 (106) 97 06/25/17 04:32 Room Air 06/25/17 04:00 97.2 70 16 141/55 (83) 97 06/25/17 00:00 97.9 53 16 125/80 (95) 97 06/24/17 23:33 Room Air 06/24/17 20:00 98.2 61 16 136/77 (96) 97 06/24/17 16:00 98.7 68 20 116/63 (80) 97 I/O 06/24/17 06/24/17 06/24/17 06/25/17 06/25/17 06/25/17 07:00 15:00 23:00 07:00 15:00 23:00 Intake Total 360 ml 100 ml 1060 ml 600 ml Balance 360 ml 100 ml 1060 ml 600 ml Intake Oral 360 ml 960 ml 500 ml IV Total 100 ml 100 ml 100 ml # Voids 2 5 3 # Bowel Movements 0 1 0 Result Diagram: 06/22/17 0615 06/24/17 0820 Imaging Last Impressions Radius/Ulna X-Ray 06/21/179 Signed Impressions: Service Date/Time: Wednesday, June 21, 2017 14:02 - CONCLUSION: Osseous structures are grossly intact. No radiopaque foreign bodies. Thanh Mays MD Hand X-Ray 06/21/17 1329 Signed Impressions: Service Date/Time: Wednesday, June 21, 2017 13:59 - CONCLUSION: 1. Prominent dorsal soft tissue swelling. 2. Osseous structures the hand are radiographically intact. Thanh Mays MD Upper Extremity Ultrasound 06/21/17 0000 Signed Impressions: Service Date/Time: Wednesday, June 21, 2017 16:33 - CONCLUSION: 2 separate visualized collections in the left hand as described. Pronounced diffuse hyperemia. Jonatan Wong MD Objective Remarks GENERAL: Alert, oriented 3, NAD. SKIN: Warm and dry. HEAD: Normocephalic. EYES: No scleral icterus. No injection or drainage. NECK: Supple, trachea midline. No JVD or lymphadenopathy. CARDIOVASCULAR: Regular rate and rhythm without murmurs, gallops, or rubs. RESPIRATORY: Breath sounds equal bilaterally. No accessory muscle use. GASTROINTESTINAL: Abdomen soft, non-tender, nondistended. MUSCULOSKELETAL: No cyanosis, or edema. Left arm wrapped in dressing. BACK: Nontender without obvious deformity. No CVA tenderness. Procedures s/p Incision and drainage complicated abscess left hand, dorsum 06/21/17 A/P Problem List: (1) Left arm cellulitis ICD Code: L03.114 - Cellulitis of left upper limb Status: Acute (2) Drug abuse, IV ICD Code: F19.10 - Other psychoactive substance abuse, uncomplicated Assessment and Plan Mr. Jones is a 42-year-old male with a history of IV drug use who was brought to the emergency department from a local correctional facility for an evaluation of a 5 day history of left upper extremity pain and swelling. Patient reported injecting heroine about a month before his recent incarceration. He was treated with Bactrim without significant improvement. Upon admission patient was evaluated by hand surgery and underwent I&D. Left arm abscess Left upper arm cellulitis s/p Incision and drainage complicated abscess left hand, dorsum 06/21/17 Currently on Unasyn per infectious disease. Likely discharge on PO Augmentin when cleared by Hand surgery. Wound culture positive for Viridans Strep Hand surgery consultation appreciate Ibuprofen 600 mg by mouth every 6 hours for pain management. History of IVDU Tobacco abuse Counseling provided regarding cessation as well as IV drug use. History of hepatitis C Outpatient management Full code. SCDs. Discharge plan: Discharge back to correctional facility with law-enforcement when cleared by hand surgery. Hand surgeon Dr. Olivares supposed to evaluate patient again on 06/26/2017. Eric Waldrop DO Jun 25, 2017 14:16
[2017-06-25 16:00] VITALS: BP 121/77; PULSE 62; RESP 18; TEMP 97.7; O2SAT 97
[2017-06-25 20:00] VITALS: BP 121/59; PULSE 76; RESP 18; TEMP 98.3; O2SAT 97
[2017-06-25] MEDS: ACETAMINOPHEN 325 MG TAB PO PRN (21:05)
[2017-06-26 00:08] VITALS: BP 125/60; PULSE 63; RESP 18; TEMP 97.6; O2SAT 97
[2017-06-26] MEDS: IBUPROFEN 600 MG TAB PO SCH ×4 (00:16→17:07)
[2017-06-26 04:00] VITALS: BP 121/61; PULSE 62; RESP 18; TEMP 97.4; O2SAT 97
[2017-06-26] MEDS: AMPICILLIN-SULBACTAM INJ 3 GM in SODIUM CHLORIDE 0.9% INJ 100 ML IV SCH ×3 (05:00→15:50)
[2017-06-26 05:40] LABS: CREATININE 0.85 MG/DL (0.60-1.30)
[2017-06-26 08:08] VITALS: BP 115/58; PULSE 53; RESP 18; TEMP 97.5; O2SAT 96
[2017-06-26] MEDS: SODIUM CHLORIDE 0.9% FLUSH 10 ML FLUSH IV FLUSH SCH (09:28)
[2017-06-26 12:08] VITALS: BP 107/59; PULSE 61; RESP 18; TEMP 97.5; O2SAT 96
[2017-06-26] MEDS ORDERED: ACET325T15 PO (12:28)
[2017-06-26] MEDS ORDERED: DOCU1CAP39 PO (12:28)
[2017-06-26] MEDS ORDERED: IBUP-232 PO (12:28)
[2017-06-26] MEDS ORDERED: AUGM875T3 PO (12:29)
[2017-06-26 16:08] VITALS: BP 113/68; PULSE 64; RESP 18; TEMP 99; O2SAT 96
--- NOTE | 2017-06-26 18:28 | HHI.IDPN ---
Subjective Subjective Remarks delayed entry pt was seen ealier today afenbrile Antibiotics zosyn Allergies: Coded Allergies: No Known Allergies (Unverified Allergy, Unknown, 06/21/17) Objective . Vital Signs Date Time Temp Pulse Resp B/P (MAP) Pulse Ox O2 Delivery O2 Flow Rate FiO2 06/26/17 12:08 97.5 61 18 107/59 (75) 96 06/26/17 09:54 Room Air 06/26/17 08:08 97.5 53 18 115/58 (77) 96 06/26/17 04:00 97.4 62 18 121/61 (81) 97 06/26/17 00:08 97.6 63 18 125/60 (81) 97 06/25/17 20:00 Room Air 06/25/17 20:00 98.3 76 18 121/59 (79) 97 06/26/17 06/26/17 06/27/17 15:00 23:00 07:00 Intake Total 100 ml 100 ml Balance 100 ml 100 ml IV Total 100 ml 100 ml . Laboratory Tests Test 06/26/17 04:46 Creatinine 0.85 MG/DL Estimat Glomerular Filtration Rate 99 ML/MIN Imaging Last Impressions Radius/Ulna X-Ray 06/21/17 1329 Signed Impressions: Service Date/Time: Wednesday, June 21, 2017 14:02 - CONCLUSION: Osseous structures are grossly intact. No radiopaque foreign bodies. Thanh Mays MD Hand X-Ray 06/21/17 1329 Signed Impressions: Service Date/Time: Wednesday, June 21, 2017 13:59 - CONCLUSION: 1. Prominent dorsal soft tissue swelling. 2. Osseous structures the hand are radiographically intact. Thanh Mays MD Upper Extremity Ultrasound 06/21/17 0000 Signed Impressions: Service Date/Time: Wednesday, June 21, 2017 16:33 - CONCLUSION: 2 separate visualized collections in the left hand as described. Pronounced diffuse hyperemia. Jonatan Wong MD Physical Exam CONSTITUTIONAL/GENERAL: This is an adequately nourished patient, in no apparent distress. TUBES/LINES/DRAINS: SKIN: No jaundice, rashes, or lesions. MUSCULOSKELETAL: Extremities without clubbing, cyanosis, STATUS LOCALIS: L hand with incision on dorsul, minld serosan drainage, no franlk pus no odor + minimal edema no erythema Assessment & Plan Remarks IVDU L hand abscess, viridans strep s/p ID: clincially resolving + ascending cellulitis: resolved jorge pastrana OK to dc on po augmentin 875 bid to complete 14 days post op Carmen Davidson MD Jun 26, 2017 18:28
[2017-06-26 20:08] VITALS: BP 112/63; RESP 16; TEMP 98.3; O2SAT 97
== END 2017-06-26 20:36 | disposition short-term general hospital (02) | DRG 603 ==
LOC: NEPD 12:42 → NEDA 15:22 → N04B 18:00
PROVIDERS: ADMIT Hospitalist; ATTEND Hospitalist
PROC: 0J9K0ZX Drainage of Left Hand Subcutaneous Tissue and Fascia, Open Approach, Diagnostic (ICD-10-PCS; principal; 2017-06-21 18:42)
DX: L03.114 Cellulitis of left upper limb (principal); F11.10 Opioid abuse, uncomplicated; L02.512 Cutaneous abscess of left hand; L02.414 Cutaneous abscess of left upper limb; M79.602 Pain in left arm; K21.9 Gastro-esophageal reflux disease without esophagitis; B19.20 Unspecified viral hepatitis C without hepatic coma; M79.89 Other specified soft tissue disorders; B95.4 Other streptococcus as the cause of diseases classified elsewhere; Z87.891 Personal history of nicotine dependence
CPT/HCPCS: 73090; 73130; 76882; 80048; 80053; 80202; 82565; 85025; 85610; 85730; 87040; 87070; 87205; 96361; 96365; 96375; J0295; J1885; J2270; J2543; J3010; J3370; J7030; J7050